=== PATIENT | female | born 1935 | race Caucasian/White ===

== ENCOUNTER 2019-09-11 12:48 | Outpatient (CLI) | payer MEDICARE, OTHER, SELFPAY ==
--- NOTE | 2019-09-11 12:59 | CT_ITS ---
WS: [id number] CT ANGIOGRAPHY CHEST AND ABDOMEN AORTA HISTORY: ASCENDING AORTIC ANEURYSM TECHNIQUE: Contiguous axial images through the aorta with and without contrast. Reformation images re viewed. All CT scans at [facility] use at least one of these dose optimization techniques: automated exposure control; mA and/or kV adjustment per patient size (includes targeted exams where dose is matched to clinical indication); or iterative reconstruction. CONTRAST: Visipaque 320; 95 mL IV. DLP: 1778.71 mGy-cm. COMPARISON: 05/28/2019 and 07/04/2016 Hyperinflated lungs with chronic emphysema. Mild bronchiectasis in the lower lobes bilaterally. Mild cardiomegaly with severe [place] coronary artery atherosclerosis and prior CABG. Thoracic and abdomen aorta: Mild aneurysmal dilatation of the ascending thoracic aorta at 4.8 cm whic h is similar to the prior study. Aortic dissection begins in the aortic arch just distal to the subcl remedios artery origin. Descending thoracic aortic dissection is stable. True and false lumens, apparent in the mid descending aorta with enhancement is both lumens. No progression of the mild dilatation w ith a dissection. Spiral shape of the dissection through the abdominal aorta with both lumens remaini ng patent. Dissection continues into the common iliac arteries bilaterally. No progression or aneurys mal dilatation. Early contrast enhancement of the visceral organs demonstrates no abnormality or interval change. Gal lbladder is slightly contracted. Severe atherosclerosis of the thoracic and abdominal aortas and the mesenteric arteries. Mild atrophy LEFT kidney. LEFT renal cyst. No adenopathy, free fluid or free air . Visualized GI tract is negative. T11, 10 percent compression fracture. Mild anterior wedging of L2 without retropulsion. CT/CT angio chest abdomen IMPRESSION: 1. Stable type III aortic dissection beginning in the descending thoracic aort a through the abdominal aorta into the common iliac arteries. 2. Mild stable aneurysmal dilatation ascending aorta at 4.8 cm. 3. Severe atherosclerosis thoracic aorta, coronary arteries and mesenteric art eries.
[2019-09-11 13:25] LABS: Blood Urea Nitrogen 17 mg/dL (8-23)
[2019-09-11] MEDS: iodixanol 320 mg/mL 100mL Btl IV (13:26)
== END 2019-09-11 12:49 | disposition home or self-care (01) ==
LOC: RADWPI 12:58
PROVIDERS: Family Provider Nurse Practitioner; PCP Nurse Practitioner; Referring Provider Nurse Practitioner; Visit Provider Internal Medicine Cardiovascular Disease
DX: I71.2 Thoracic aortic aneurysm, without rupture (principal)
CPT/HCPCS: 71275; 74175; 82565; 84520; Q9967

== ENCOUNTER → 2019-09-17 14:43 | Outpatient (BNVA) | payer MEDICARE, OTHER, SELFPAY | PROVIDERS: Family Provider Nurse Practitioner; PCP Nurse Practitioner; Visit Provider Nurse Practitioner | DX: E11.65 Type 2 diabetes mellitus with hyperglycemia (principal); E53.8 Deficiency of other specified B group vitamins; I10 Essential (primary) hypertension; E55.9 Vitamin D deficiency, unspecified; F41.1 Generalized anxiety disorder | CPT/HCPCS: 80053; 80061; 82306; 82607; 84443; 85025 ==

== ENCOUNTER → 2020-02-02 15:47 | Outpatient (BNVA) | payer MEDICARE, OTHER, SELFPAY | PROVIDERS: Family Provider Nurse Practitioner; PCP Nurse Practitioner; Visit Provider Nurse Practitioner | DX: E11.65 Type 2 diabetes mellitus with hyperglycemia (principal); E53.8 Deficiency of other specified B group vitamins; I10 Essential (primary) hypertension; F41.1 Generalized anxiety disorder; E55.9 Vitamin D deficiency, unspecified | CPT/HCPCS: 80053; 80061; 82306; 82607; 83036; 83540; 84443; 85025 ==

== ENCOUNTER → 2020-02-10 15:28 | Outpatient (BNVA) | payer MEDICARE, OTHER, SELFPAY | PROVIDERS: Family Provider Nurse Practitioner; Visit Provider Internal Medicine Cardiovascular Disease | DX: R06.02 Shortness of breath (principal); H53.19 Other subjective visual disturbances; R53.83 Other fatigue; I50.33 Acute on chronic diastolic (congestive) heart failure | CPT/HCPCS: 83880; 84443 ==

== ENCOUNTER 2020-03-03 09:15 | Outpatient (CLI) | payer MEDICARE, OTHER, SELFPAY ==
--- NOTE | 2020-03-03 09:35 | NMCV_ITS ---
NM ant perf SPECT r/s* [id number] Florence Mehta Age: 84 Gender: F : 1935 Exam Date: 03/03/2020 10:33 Ordering Phys: Andrei Alejandre MD ([email or web address]) Technologist: JAYRO Vargas Exam Location: [facility] Indications: VISUAL DISTORTION, SHORTNESS OF BREATH STRESS TEST Please see separate stress test report in [facility] for full findings IMAGE PROTOCOL Rest/Stress 1 Lexiscan Day Radiopharmaceutical Dose (mCi) Administration Site Administered by Rest: Tc-99m 10.9 IV JAYRO Lopez Sestamibi Stress:Tc-99m 32.4 IV JAYRO Vargas Sestamijethro Rest: 03-Mar-2020 60 Discovery 630 Stress: 03-Mar-2020 30 Discovery 630 0.4mg Lexiscan. Images obtained in supine and prone position. SPECT RESULTS Technical Quality: Excellent Raw Data Analysis: Normal Image Corrections: No attenuation or motion correction applied Summed Stress Score: 2 Summed Rest Score: 1 Summed Difference Score: 1 PERFUSION FINDINGS A small area of decreases uptake was noted in the apical anterior and apical septal region. Some reversibility was noted in the apical anterior region. FUNCTIONAL RESULTS (calculated via Gated SPECT) Stress Image LV EF (%): 78 Stress EDV (mL):79 TID: 0.96 Stress ESV (mL):17 FUNCTIONAL FINDINGS: Segmental wall motion analysis revealing no gross wall motion normalities IMPRESSIONS 1. Myocardial perfusion imaging revealing a small area of reversible defect in the apical anterior region, suggestive of ischemia in the distribution of the distal left anterior descending artery. 2. Normal LV ejection fraction 78%. 3. LV wall motion analysis revealing no gross wall motion normalities. 4. Normal LV volume. No similar previous studies available for comparison Dr Andrei Alejandre MD [facility] (Electronically Signed) Final Date: 03 March 2020 19:27 S
--- NOTE | 2020-03-03 09:35 | ECG_ITS ---
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 Interpretive Statements NAME OF STUDY: LEXISCAN SESTAMIBI STRESS TEST INDICATION: Chest Pain, PROCEDURE: At the baseline, the EKG revealed atrial fibrillation with controlled ventricular response rate. Some nonspecific T wave changes. Poor R wave progression. The baseline blood pressure was 148/89 mm Hg with a heart rate of 70 beats/min. Lexiscan was infused over a period of 20 seconds. A total of 0.4 milligrams of Lexiscan was infused. The stress phase was continued for a total of 5 minutes. Heart rate at the end of the stress phase was 72 with a blood pressure 159/77. The EKG at the peak infusion revealed no significant changes. Sestamibi was injected 20 seconds after the Lexiscan infusion. Blood pressure at the end of the recovery phase was 153/82 with a heart rate of 70 per minute. CONCLUSION: 1. No significant EKG changes with the LexiScan infusion 2. No LexiScan induced chest pain or cardiac arrhythmia 3. Normal blood pressure and heart rate response 4. Sestamibi/sestamibi perfusion scan pending; see separate report. Electronically Signed On 03-04-2020 15:54:01 CDT by Andrei Alejandre M.D. [email or web address]/[id number]
[2020-03-03 09:36] VITALS: BMI 25.8
[2020-03-03 11:23] VITALS: BP 155/79; PULSE 73
[2020-03-03] MEDS: aminophylline 25 mg/mL SDV 10 mL IVP (11:26)
[2020-03-03] MEDS: regadenoson 0.4 Mg/5 ml Syringe IVP (11:27)
== END 2020-03-03 09:16 | disposition home or self-care (01) ==
LOC: RAD 09:16
PROVIDERS: Family Provider Nurse Practitioner; Visit Provider Internal Medicine Cardiovascular Disease
DX: R06.02 Shortness of breath (principal); H53.19 Other subjective visual disturbances; R07.9 Chest pain, unspecified
CPT/HCPCS: 78452; 93017; A9500; J0280; J2785

== ENCOUNTER 2020-03-13 15:32 | Inpatient (IN) | payer MEDICARE, OTHER, SELFPAY ==
[2020-03-13] VITALS (52 sets, daily range): BP systolic 95–143; BP diastolic 56–83; PULSE 14–74; RESP 5–34; TEMP 36.5–37; O2SAT 88–97; BMI 25.8
--- NOTE | 2020-03-13 15:37 | ECG_ITS ---
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 Measurements Intervals [place] Rate: 47 P: MI: -1 QRS: -15 QRSD: 102 T: -3 QT: 538 QTc: 481 Interpretive Statements Junctional rhythm VOLTAGE CRITERIA FOR LVH [MEETS CRITERIA IN ONE OF: R(aVL), S(V1), R(V5), R(V5/V6)+S(V1)] INFERIOR MYOCARDIAL INFARCTION , PROBABLY OLD [40+ ms Q WAVE AND/OR ST/T ABNORMALITY IN II/aVF] Compared to ECG 10/24/2018 08:53:45 Left ventricular hypertrophy now present Myocardial infarct finding now present Sinus rhythm no longer present Ventricular premature complex(es) no longer present Electronically Signed On 03-13-2020 19:07:56 CDT by Benitez Vazquez M.D. [id number]
--- NOTE | 2020-03-13 15:37 | CTR_ITS ---
PROCEDURE INFORMATION: Exam: CT Abdomen And Pelvis With Contrast Exam date and time: 03/13/2020 3:40 PM Age: 84 years old Clinical indication: Abdominal pain; Acute; Additional info: Abd pain TECHNIQUE: Imaging protocol: Computed tomography of the abdomen and pelvis with intravenous contrast. Sagittal and coronal reformatted images were created and reviewed. Radiation optimization: All CT scans at this facility use at least one of these dose optimization techniques: automated exposure control; mA and/or kV adjustment per patient size (includes targeted exams where dose is matched to clinical indication); or iterative reconstruction. Contrast material: VISIPAQUE 320; Contrast volume: 95 ml; Contrast route: INTRAVENOUS (IV); COMPARISON: CT angio chest abdomen 09/11/2019 1:31 PM RADIATION DOSE METRICS: Total DLP (mGy-cm): 870.09 FINDINGS: Lungs: Stable interstitial fibrotic changes in the visualized lungs. Dependent atelectasis in the right lung. New noncalcified nodule in the right middle lobe with an average measurement of 7 mm (series 2, image 3). Heart: Stable moderate enlargement of the visualized portions of the heart. Liver: The liver is unremarkable. Gallbladder and bile ducts: The gallbladder is unremarkable. No biliary ductal dilatation. Pancreas: Stable mild atrophy of the pancreatic parenchyma. Spleen: Multiple calcified granulomas in the spleen. Findings are stable. Adrenals: The right and left adrenal glands are unremarkable. Kidneys and ureters: Simple cyst in the right kidney. The left kidney is unremarkable. The right and left ureters are unremarkable. Stomach and bowel: Moderate gastric distention. Increased fecal content in the colon. No acute abnormality in the small bowel. Appendix: Appendix not definitely visualized. No inflammatory changes in the pericecal region however. Intraperitoneal space: No free intraperitoneal air. No ascites. No loculated fluid collections to suggest an abscess. Vasculature: Atherosclerotic calcification in the coronary arteries. Stable extensive atherosclerotic calcifications in the visualized arteries. Stable aneurysm of the visualized descending thoracic aorta measuring 4.1 cm (series 2, image 10). 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 Lymph nodes: No lymphadenopathy. Bladder: Unremarkable as visualized. Reproductive: Patient has had a previous hysterectomy. Calcification in the right ovary, possibly due to sequela from a prior involuting cyst. The left ovary is unremarkable. Bones/joints: Poststernotomy changes in the chest. Degenerative changes in the spine, sacroiliac joints, and hips. Mild spinal canal stenosis at L1-L2 through L5-S1. Multilevel foraminal stenosis of varying severity in the lumbar spine. Stable old, mild compression deformities of the superior endplates of T11, L2, and L3, and the inferior endplate of L4. Soft tissues: No acute abnormality in the extra-abdominal soft tissues. CT/CT abdomen pelvis w con* [id number] IMPRESSION: 1. Moderate gastric distention. 2. New noncalcified nodule in the right middle lobe with an average measurement of 7 mm (series 2, image 3). For patients at low risk (minimal or absent history of smoking and of other known risk factors), recommend CT Chest at 3-6 months, then consider CT Chest at 18-24 months. For patients at high risk (history of smoking or of other known risk factors), recommend CT Chest at 3-6 months, then CT Chest at 18-24 months. HaileMahon Loera, Fleischner Society, 2017. 3. 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 4. 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 5. Incidental/nonacute findings are listed in the report. COMMENTS: Consistent with the [employer]'s Incidental Findings Committee white paper (J Am Alesha Radiol 2018): Any incidental renal lesion less than 1.0 cm or classified as too small to characterize, or any incidental cystic renal lesion characterized as simple-appearing, is likely benign. No follow-up imaging is recommended for these lesions per consensus recommendations based on imaging criteria. Radiation Dose CTDIVOL = (mGy): DLP = 870.09 (mGy-cm)
--- NOTE | 2020-03-13 15:37 | XRR_ITS ---
PROCEDURE INFORMATION: Exam: XR Chest, 1 View Exam date and time: 03/13/2020 3:49 PM Age: 84 years old Clinical indication: Chest pain; Type not specified; Prior surgery; Surgery date: 6+ months; Surgery type: Bypass; Additional info: Bradycardia TECHNIQUE: Imaging protocol: XR of the chest Views: 1 view. COMPARISON: CR Chest 2 views* [id number] 10/20/2018 6:56 AM FINDINGS: Lungs: Stable scarring in both lungs. No focal consolidation. No pulmonary edema. Stable linear scarring in the left lower lobe. Pleural space: No pleural effusion. No pneumothorax. Heart/Mediastinum: Stable mild enlargement of the cardiac silhouette. Mediastinal contours are unremarkable. Vasculature: Stable vascular calcifications in the aorta. Stable tortuosity of the aorta. Bones/joints: Unremarkable for age. XR/XR chest 1V portable [id number] IMPRESSION: 1. No acute cardiopulmonary process. 2. Incidental/nonacute findings are listed in the report.
--- NOTE | 2020-03-13 15:48 | W.ED.ABDPA2 ---
HPI - Abdominal Pain General: Chief Complaint: Abdominal Pain Stated Complaint: BRADYCARDIA Time Seen by Provider: 03/13/20 15:34 Source: patient and EMS Mode of arrival: EMS Limitations: no limitations History of Present Illness: HPI narrative: 84-year-old female states she started having abdominal distention and abdominal pain that started suddenly 2 hours ago. Patient states the pain is severe in nature and rates it an 8 out of 10. Denies any worsening or improving factors. Patient was bradycardic per EMS in the 30s but had a normal blood pressure. They gave her 0.5 atropine her blood pressure still is normal and heart rate is in the 50s. Patient denies any chest pain or shortness of breath. MD elicited complaint: abdominal pain Pertinent past history: none Onset (ago): hour(s) Pain Consistency: constant Location: Diffuse Severity: moderate Quality: stabbing Radiation: none Migration to: no migration Exacerbating factors: nothing Relieving factors: nothing Associated Symptoms: Denies chills, dysuria and fever(s) Review of Systems Const: Denies: fever(s), chills, body aches or change in appetite Eyes: Denies: blurry vision or eye discomfort ENMT: Denies: throat pain or dental pain Card: Reports: irregular heart rhythm Resp: Denies: dyspnea GI: Reports: abdominal pain : Denies: dysuria Musc: Denies: neck pain or back pain Skin/Breast: Denies: rash Neuro: Denies: headache(s) Psych: Denies: depression Addy/Lymph: Denies: easy bruising All/Imm: Denies: urticaria PFSH ED PFSH: Medical History (Updated 03/13/20 @ 18:29 by Casimiro Velazquez MD) Atherosclerotic heart disease of craig coronary artery without angina pectoris Recent nuclear stress test, 03/03/2020 demonstrated reversible ischemia, small area, LAD distribution Benign hypertension Controlled type 2 diabetes mellitus with hyperglycemia, without long-term current use of insulin COPD with emphysema CVA (cerebral vascular accident) Fatigue Generalized anxiety disorder Memory deficit Mixed hyperlipidemia Paroxysmal atrial fibrillation Thoracic aortic aneurysm Visual distortion Vitamin B12 deficiency Vitamin D deficiency Surgical History (Updated 03/13/20 @ 18:21 by Casimiro Velazquez MD) History of appendectomy History of colonoscopy 2014 History of coronary artery bypass graft History of hysterectomy Family History Sister Cancer Social History Smoking and tobacco status: never smoked Second hand smoke exposure: No Smoking risk assessment/counseling performed?: No Alcohol intake: never Desire information about alcohol rehabilitation?: No Counseling given: No Desire information about substance/drug rehabilitation?: No Counseling given: No Caregiver/support person: No Lives independently: Yes Household members: spouse Marital status: History of recent travel: No Current gender identity: Female Physical Exam Const: COMMON NORMALS: no acute distress, patient oriented x3 and healthy appearing HENMT: COMMON NORMALS: normocephalic and atraumatic HEAD & SCALP: normocephalic and atraumatic Eye: COMMON NORMALS: Equal, round and reactive pupils present and EOMs intact bilaterally PUPIL: Yes Equal, round and reactive pupils present Neck/C-Spine: COMMON NORMALS: full ROM and supple Chest: COMMONS NORMALS: normal inspection of the chest and normal palpation of entire chest wall Resp: COMMON NORMALS: normal respiratory effort, No retractions, No use of accessory muscles and clear to auscultation bilaterally AUSCULTATION: clear to auscultation bilaterally Cardio: COMMON NORMALS: regular rhythm and No murmurs present (Cardio) RATE: bradycardic RHYTHM: regular rhythm GI: COMMON NORMALS: no masses OTHER: Distended abdomen that is tender to palpation Extremity: COMMON NORMALS: normal to inspection and full ROM Neuro: COMMON NORMALS: patient oriented x3, moves all extremities and no focal motor deficits Psych: COMMON NORMALS: mental status grossly normal, Normal thought process present and cooperative THOUGHT PROCESS: Normal thought process present Skin: COMMON NORMALS: no rashes or lesions noted and no wounds GENERAL SKIN EXAM: no rashes or lesions noted Course Vital Signs: Vital signs: Vital Signs Temperature 97.7 F 03/13/20 15:33 Pulse Rate 61 03/13/20 18:44 Respiratory Rate 18 03/13/20 18:44 Blood Pressure 115/63 03/13/20 18:44 Pulse Oximetry 96 03/13/20 18:44 MDM - Abdominal Pain MDM Narrative: Medical decision making narrative: Patient presents here with bradycardia likely from electrolyte abnormality. Patient has hyperkalemia is they have treated with insulin glucose and calcium. She also has abdominal pain CT shows an old stable aneurysm. Her pain is much improved here after pain meds and exam at this time is benign. I spoke to Dr. Velazquez who is seen the patient in the ER and will admit. Lab Data: Labs: Lab Results 03/13/20 03/13/20 03/13/20 Range/Units 15:45 15:45 15:45 WBC 7.7 (4.0-10.0) 10^3/ uL RBC 3.86 L (4.1-5.3) 10^6/u L Hgb 11.6 (11.5-15.3) g/dL Hct 36.6 L (37.0-47.0) % MCV 94.8 (81-99) fL MCH 30.1 (28.0-34.0) pg MCHC 31.7 (30.0-36.0) g/dL RDW 14.6 (12.1-15.1) % Plt Count 136 (130-400) 10^3/c mm MPV 11.7 H (7.4-10.4) fL Neut % (Auto) 81.5 % Lymph % (Auto) 10.1 % [place] % (Auto) 5.8 % Eos % (Auto) 1.0 % Baso % (Auto) 0.3 % Neut # (Auto) 6.27 (1.8-7.7) 10^3/u L Lymph # (Auto) 0.8 (0.8-4.8) 10^3/u L [place] # (Auto) 0.5 (0.2-0.9) 10^3/u L Eos # (Auto) 0.1 (0.0-0.8) 10^3/u L Baso # (Auto) 0.0 (0.0-0.1) 10^3/u L Nucleated RBC % (a uto) 0 % Nucleated RBCs # 0.0 /100WBC PT 14.10 H (10.5-13.3) SECO NDS INR 1.06 (0.8-1.2) Sodium 127 L (136-145) mmol/L Potassium 5.6 H (3.5-5.1) mmol/L Chloride 92 L (98-107) mmol/L Carbon Dioxide 24 (22-29) mmol/L Anion Gap 16.6 (5-19) BUN 23 (8-23) mg/dL Creatinine 1.7 H (0.5-0.9) mg/dL Glucose 281 H (65-115) mg/dL Calculated Osmolal ity 271 L (285-295) mOsm/k g Lactate (0.5-2.2) mmol/L Calcium 10.1 (8.5-10.5) mg/dL Magnesium (1.7-2.3) mg/dL Total Bilirubin 0.8 (0.15-1.2) mg/dL AST 34 H (0-32) U/L ALT 25 (0-33) U/L Alkaline Phosphata se 51 (35-105) IU/L Troponin T Baselin e (0-10) ng/L Troponin T 120 [place] (0-10) ng/L Delta Troponin T (0-10) ABS# Total Protein 7.0 (6.6-8.7) g/dL Albumin 4.2 (3.5-5.2) g/dL Globulin 2.8 (1.3-4.6) g/dL TSH (0.27-4.20) uIU/ mL Urine Color (Yellow) Urine Appearance (CLEAR) Urine pH (5-7) Ur Specific Gravit y (1.005-1.030) Urine Protein (Negative) Urine Glucose (UA) (Normal) Urine Ketones (Negative) Urine Blood (Negative) Urine Nitrate (Negative) Urine Bilirubin (NEGATIVE) Urine Urobilinogen (Negative) mg/dL Ur Leukocyte Allison ase (Negative) Blood Type Rho(D) Type Antibody Screen 03/13/20 03/13/20 03/13/20 Range/Units 15:45 15:45 15:45 WBC (4.0-10.0) 10^3/ uL RBC (4.1-5.3) 10^6/u L Hgb (11.5-15.3) g/dL Hct (37.0-47.0) % MCV (81-99) fL MCH (28.0-34.0) pg MCHC (30.0-36.0) g/dL RDW (12.1-15.1) % Plt Count (130-400) 10^3/c mm MPV (7.4-10.4) fL Neut % (Auto) % Lymph % (Auto) % [place] % (Auto) % Eos % (Auto) % Baso % (Auto) % Neut # (Auto) (1.8-7.7) 10^3/u L Lymph # (Auto) (0.8-4.8) 10^3/u L [place] # (Auto) (0.2-0.9) 10^3/u L Eos # (Auto) (0.0-0.8) 10^3/u L Baso # (Auto) (0.0-0.1) 10^3/u L Nucleated RBC % (a uto) % Nucleated RBCs # /100WBC PT (10.5-13.3) SECO NDS INR (0.8-1.2) Sodium (136-145) mmol/L Potassium (3.5-5.1) mmol/L Chloride (98-107) mmol/L Carbon Dioxide (22-29) mmol/L Anion Gap (5-19) BUN (8-23) mg/dL Creatinine (0.5-0.9) mg/dL Glucose (65-115) mg/dL Calculated Osmolal ity (285-295) mOsm/k g Lactate 2.4 H (0.5-2.2) mmol/L Calcium (8.5-10.5) mg/dL Magnesium 1.8 (1.7-2.3) mg/dL Total Bilirubin (0.15-1.2) mg/dL AST (0-32) U/L ALT (0-33) U/L Alkaline Phosphata se (35-105) IU/L Troponin T Baselin e 13 H (0-10) ng/L Troponin T 120 [place] (0-10) ng/L Delta Troponin T (0-10) ABS# Total Protein (6.6-8.7) g/dL Albumin (3.5-5.2) g/dL Globulin (1.3-4.6) g/dL TSH (0.27-4.20) uIU/ mL Urine Color (Yellow) Urine Appearance (CLEAR) Urine pH (5-7) Ur Specific Gravit y (1.005-1.030) Urine Protein (Negative) Urine Glucose (UA) (Normal) Urine Ketones (Negative) Urine Blood (Negative) Urine Nitrate (Negative) Urine Bilirubin (NEGATIVE) Urine Urobilinogen (Negative) mg/dL Ur Leukocyte Allison ase (Negative) Blood Type Rho(D) Type Antibody Screen 03/13/20 03/13/20 03/13/20 Range/Units 15:45 17:07 17:48 WBC (4.0-10.0) 10^3/ uL RBC (4.1-5.3) 10^6/u L Hgb (11.5-15.3) g/dL Hct (37.0-47.0) % MCV (81-99) fL MCH (28.0-34.0) pg MCHC (30.0-36.0) g/dL RDW (12.1-15.1) % Plt Count (130-400) 10^3/c mm MPV (7.4-10.4) fL Neut % (Auto) % Lymph % (Auto) % [place] % (Auto) % Eos % (Auto) % Baso % (Auto) % Neut # (Auto) (1.8-7.7) 10^3/u L Lymph # (Auto) (0.8-4.8) 10^3/u L [place] # (Auto) (0.2-0.9) 10^3/u L Eos # (Auto) (0.0-0.8) 10^3/u L Baso # (Auto) (0.0-0.1) 10^3/u L Nucleated RBC % (a uto) % Nucleated RBCs # /100WBC PT (10.5-13.3) SECO NDS INR (0.8-1.2) Sodium (136-145) mmol/L Potassium (3.5-5.1) mmol/L Chloride (98-107) mmol/L Carbon Dioxide (22-29) mmol/L Anion Gap (5-19) BUN (8-23) mg/dL Creatinine (0.5-0.9) mg/dL Glucose (65-115) mg/dL Calculated Osmolal ity (285-295) mOsm/k g Lactate (0.5-2.2) mmol/L Calcium (8.5-10.5) mg/dL Magnesium (1.7-2.3) mg/dL Total Bilirubin (0.15-1.2) mg/dL AST (0-32) U/L ALT (0-33) U/L Alkaline Phosphata se (35-105) IU/L Troponin T Baselin e (0-10) ng/L Troponin T 120 [place] 12.57 H (0-10) ng/L Delta Troponin T -0.43 L (0-10) ABS# Total Protein (6.6-8.7) g/dL Albumin (3.5-5.2) g/dL Globulin (1.3-4.6) g/dL TSH 7.36 H (0.27-4.20) uIU/ mL Urine Color (Yellow) Urine Appearance (CLEAR) Urine pH (5-7) Ur Specific Gravit y (1.005-1.030) Urine Protein (Negative) Urine Glucose (UA) (Normal) Urine Ketones (Negative) Urine Blood (Negative) Urine Nitrate (Negative) Urine Bilirubin (NEGATIVE) Urine Urobilinogen (Negative) mg/dL Ur Leukocyte Allison ase (Negative) Blood Type O Positive Rho(D) Type Positive Antibody Screen Negative 03/13/20 Range/Units 17:58 WBC (4.0-10.0) 10^3/ uL RBC (4.1-5.3) 10^6/u L Hgb (11.5-15.3) g/dL Hct (37.0-47.0) % MCV (81-99) fL MCH (28.0-34.0) pg MCHC (30.0-36.0) g/dL RDW (12.1-15.1) % Plt Count (130-400) 10^3/c mm MPV (7.4-10.4) fL Neut % (Auto) % Lymph % (Auto) % [place] % (Auto) % Eos % (Auto) % Baso % (Auto) % Neut # (Auto) (1.8-7.7) 10^3/u L Lymph # (Auto) (0.8-4.8) 10^3/u L [place] # (Auto) (0.2-0.9) 10^3/u L Eos # (Auto) (0.0-0.8) 10^3/u L Baso # (Auto) (0.0-0.1) 10^3/u L Nucleated RBC % (a uto) % Nucleated RBCs # /100WBC PT (10.5-13.3) SECO NDS INR (0.8-1.2) Sodium (136-145) mmol/L Potassium (3.5-5.1) mmol/L Chloride (98-107) mmol/L Carbon Dioxide (22-29) mmol/L Anion Gap (5-19) BUN (8-23) mg/dL Creatinine (0.5-0.9) mg/dL Glucose (65-115) mg/dL Calculated Osmolal ity (285-295) mOsm/k g Lactate (0.5-2.2) mmol/L Calcium (8.5-10.5) mg/dL Magnesium (1.7-2.3) mg/dL Total Bilirubin (0.15-1.2) mg/dL AST (0-32) U/L ALT (0-33) U/L Alkaline Phosphata se (35-105) IU/L Troponin T Baselin e (0-10) ng/L Troponin T 120 [place] (0-10) ng/L Delta Troponin T (0-10) ABS# Total Protein (6.6-8.7) g/dL Albumin (3.5-5.2) g/dL Globulin (1.3-4.6) g/dL TSH (0.27-4.20) uIU/ mL Urine Color Yellow (Yellow) Urine Appearance Clear (CLEAR) Urine pH 7 (5-7) Ur Specific Gravit y 1.000 L (1.005-1.030) Urine Protein Neg (Negative) Urine Glucose (UA) Norm (Normal) Urine Ketones Negative (Negative) Urine Blood Neg (Negative) Urine Nitrate Negative (Negative) Urine Bilirubin Neg (NEGATIVE) Urine Urobilinogen Norm (Negative) mg/dL Ur Leukocyte Allison ase Negative (Negative) Blood Type Rho(D) Type Antibody Screen Imaging Data ^: CXR: Radiologist's impression: [address] [address] XRay Report Signed Patient: Florence Mehta Unit #: [id number] : 1935 Age/Sex: 84 / F ADM Date: 03/13/20 Loc: ER Room/Bed: Attending Dr: Ordering Provider/Ordering MD: Salena Wilson MD Date of Service: 03/13/20 Procedure(s): XR chest 1V portable [id number] Accession Number(s): [id number] Report Number: [id number] PROCEDURE INFORMATION: Exam: XR Chest, 1 View Exam date and time: 03/13/2020 3:49 PM Age: 84 years old Clinical indication: Chest pain; Type not specified; Prior surgery; Surgery date: 6+ months; Surgery type: Bypass; Additional info: Bradycardia TECHNIQUE: Imaging protocol: XR of the chest Views: 1 view. COMPARISON: CR Chest 2 views* [id number] 10/20/2018 6:56 AM FINDINGS: Lungs: Stable scarring in both lungs. No focal consolidation. No pulmonary edema. Stable linear scarring in the left lower lobe. Pleural space: No pleural effusion. No pneumothorax. Heart/Mediastinum: Stable mild enlargement of the cardiac silhouette. Mediastinal contours are unremarkable. Vasculature: Stable vascular calcifications in the aorta. Stable tortuosity of the aorta. Bones/joints: Unremarkable for age. XR/XR chest 1V portable [id number] IMPRESSION: 1. No acute cardiopulmonary process. 2. Incidental/nonacute findings are listed in the report. CT Abd/Pel: Attestation: I personally reviewed and interpreted this imaging study as follows: Radiologist's impression: [address] [address] [address] Scan Report Signed Patient: Florence Mehta Unit #: [id number] : 1935 Age/Sex: 84 / F ADM Date: 03/13/20 Loc: ER Room/Bed: Attending Dr: Ordering Provider/Ordering MD: Salena Wilson MD Date of Service: 03/13/20 Procedure(s): CT abdomen pelvis w con* [id number] Accession Number(s): [id number] Report Number: [id number] PROCEDURE INFORMATION: Exam: CT Abdomen And Pelvis With Contrast Exam date and time: 03/13/2020 3:40 PM Age: 84 years old Clinical indication: Abdominal pain; Acute; Additional info: Abd pain TECHNIQUE: Imaging protocol: Computed tomography of the abdomen and pelvis with intravenous contrast. Sagittal and coronal reformatted images were created and reviewed. Radiation optimization: All CT scans at this facility use at least one of these dose optimization techniques: automated exposure control; mA and/or kV adjustment per patient size (includes targeted exams where dose is matched to clinical indication); or iterative reconstruction. Contrast material: VISIPAQUE 320; Contrast volume: 95 ml; Contrast route: INTRAVENOUS (IV); COMPARISON: CT angio chest abdomen 09/11/2019 1:31 PM RADIATION DOSE METRICS: Total DLP (mGy-cm): 870.09 FINDINGS: Lungs: Stable interstitial fibrotic changes in the visualized lungs. Dependent atelectasis in the right lung. New noncalcified nodule in the right middle lobe with an average measurement of 7 mm (series 2, image 3). Heart: Stable moderate enlargement of the visualized portions of the heart. Liver: The liver is unremarkable. Gallbladder and bile ducts: The gallbladder is unremarkable. No biliary ductal dilatation. Pancreas: Stable mild atrophy of the pancreatic parenchyma. Spleen: Multiple calcified granulomas in the spleen. Findings are stable. Adrenals: The right and left adrenal glands are unremarkable. Kidneys and ureters: Simple cyst in the right kidney. The left kidney is unremarkable. The right and left ureters are unremarkable. Stomach and bowel: Moderate gastric distention. Increased fecal content in the colon. No acute abnormality in the small bowel. Appendix: Appendix not definitely visualized. No inflammatory changes in the pericecal region however. Intraperitoneal space: No free intraperitoneal air. No ascites. No loculated fluid collections to suggest an abscess. Vasculature: Atherosclerotic calcification in the coronary arteries. Stable extensive atherosclerotic calcifications in the visualized arteries. Stable aneurysm of the visualized descending thoracic aorta measuring 4.1 cm (series 2, image 10). 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 Lymph nodes: No lymphadenopathy. Bladder: Unremarkable as visualized. Reproductive: Patient has had a previous hysterectomy. Calcification in the right ovary, possibly due to sequela from a prior involuting cyst. The left ovary is unremarkable. Bones/joints: Poststernotomy changes in the chest. Degenerative changes in the spine, sacroiliac joints, and hips. Mild spinal canal stenosis at L1-L2 through L5-S1. Multilevel foraminal stenosis of varying severity in the lumbar spine. Stable old, mild compression deformities of the superior endplates of T11, L2, and L3, and the inferior endplate of L4. Soft tissues: No acute abnormality in the extra-abdominal soft tissues. CT/CT abdomen pelvis w con* [id number] IMPRESSION: 1. Moderate gastric distention. 2. New noncalcified nodule in the right middle lobe with an average measurement of 7 mm (series 2, image 3). For patients at low risk (minimal or absent history of smoking and of other known risk factors), recommend CT Chest at 3-6 months, then consider CT Chest at 18-24 months. For patients at high risk (history of smoking or of other known risk factors), recommend CT Chest at 3-6 months, then CT Chest at 18-24 months. Kathleen Loera, Fleischner Society, 2017. 3. 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 4. 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 5. Incidental/nonacute findings are listed in the report. EKG Data ^: EKG 1: Attestation: I personally reviewed and interpreted this EKG as follows: EKG interpretation date: 03/13/20 EKG interpretation time: 15:49 Interpretation: bradycardia hr [address] or t wave abnormalities qrs 102 qtc 503 Critical Care Time Critical Care Time: Critical Care Time: Yes Total Critical Care Time: 35 Attestation: This case had a high probability of a clinically significant, sudden, or life threatening deterioration of this patient's condition which required my full and direct attention, intervention and personal management. Discharge Plan Discharge Patient Disposition: Admitted As Inpatient Clinical Impression: Bradycardia, Abdominal pain, Acute hyperkalemia Condition: Stable Referrals: Rui Becker FNP-C [Family Provider] - Coding Level of Care Code ED Automobile Damage Appraiser for Chg Fwd Exam Comprehensive
[2020-03-13] MEDS: morphine 4 mg/mL SDV 1 mL IVP (15:55)
[2020-03-13] MEDS: ondansetron 2 mg/ML SDV 2 mL 4 MG IVP ×2 (15:55→18:33)
--- NOTE | 2020-03-13 16:03 | PC.NURSE ---
States she has had needed to void today. Peed this morning and not since then. Abdomen distended and hyper bowel sounds .
[2020-03-13 16:04] LABS: Basophils % 0.3 %; Eosinophils # 0.1 10^3/uL (0.0-0.8); Hematocrit 36.6 % (37.0-47.0); Hemoglobin 11.6 g/dL (11.5-15.3); Lymphocytes # 0.8 10^3/uL (0.8-4.8); Lymphocytes % 10.1 %; Mean Corpuscular HGB Conc 31.7 g/dL (30.0-36.0); Mean Corpuscular Hemoglobin 30.1 pg (28.0-34.0); Mean Corpuscular Volume 94.8 fL (81-99); Mean Platelet Volume 11.7 fL (7.4-10.4); Monocytes # 0.5 10^3/uL (0.2-0.9); Monocytes % 5.8 %; Neutrophils # 6.27 10^3/uL (1.8-7.7); Neutrophils % 81.5 %; Nucleated Red Blood Cells % 0 %; Platelet Count 136 10^3/cmm (130-400); Red Blood Count 3.86 10^6/uL (4.1-5.3); Red Cell Distribution Width 14.6 % (12.1-15.1); White Blood Count 7.7 10^3/uL (4.0-10.0)
[2020-03-13] MEDS: sodium chloride 0.9% 1,000 ML 999 ML IV (16:13)
[2020-03-13 16:21] LABS: Lactate (Lactic Acid level) 2.4 mmol/L (0.5-2.2)
[2020-03-13 16:25] LABS: Alanine Aminotransferase 25 U/L (0-33); Albumin Level 4.2 g/dL (3.5-5.2); Alkaline Phosphatase 51 IU/L (35-105); Anion Gap 16.6 (5-19); Aspartate Amino Transferase 34 U/L (0-32); Blood Urea Nitrogen 23 mg/dL (8-23); Calcium 10.1 mg/dL (8.5-10.5); Carbon Dioxide 24 mmol/L (22-29); Chloride 92 mmol/L (98-107); Globulin 2.8 g/dL (1.3-4.6); Glucose 281 mg/dL (65-115); Osmolality Calculated 271 mOsm/kg (285-295); Potassium 5.6 mmol/L (3.5-5.1); Sodium 127 mmol/L (136-145); Total Bilirubin 0.8 mg/dL (0.15-1.2)
[2020-03-13 16:35] LABS: INR 1.06 (0.8-1.2)
[2020-03-13 16:54] LABS: Troponin(5th) Baseline 13 ng/L (0-10)
[2020-03-13] MEDS: iodixanol 320 mg/mL 100mL Btl IV (17:25)
[2020-03-13 17:36] LABS: Magnesium 1.8 mg/dL (1.7-2.3)
--- NOTE | 2020-03-13 17:37 | ECG_ITS ---
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 Measurements Intervals [place] Rate: 43 P: [place]: -1 QRS: 0 QRSD: 90 T: 2 QT: 556 QTc: 473 Interpretive Statements Junctional rhythm POSSIBLE ANTERIOR MYOCARDIAL INFARCTION , OF INDETERMINATE AGE [30 ms Q WAVE IN V3/V4, OR R < 0.2 mV IN V4] PROLONGED QT INTERVAL CRITICAL TEST RESULT Compared to ECG 03/13/2020 15:49:45 Prolonged QT interval now present Left ventricular hypertrophy no longer present Myocardial infarct finding still present Electronically Signed On 03-13-2020 19:10:56 CDT by Benitez Vazquez M.D. [email or web address]
[2020-03-13 18:11] LABS: Troponin 5 2HR 12.57 ng/L (0-10)
--- NOTE | 2020-03-13 18:11 | P.HP_ITS ---
Providers/Chief Complaint Chief Complaint: BRADYCARDIA History of Present Illness Florence Mehta is a 84 year old female who presents to the emergency department with abdominal pain. She has had some dry heaves. 1 week ago or so she started on a new medicine ranolazine. She is wondering if that is what is causing difficulty. She reports some difficulty urinating and has not urinated since early this morning. She reports constipation at least the last 2 days. She reports her abdomen feels significantly distended. She did have some abdominal discomfort when she came in but this is somewhat better. She denies any fever, cough, exposure to Covid 19. She reports she takes all her medicines as prescribed. She reports she had some chest pain with her epigastric pain earlier this morning. EMS was concerned regarding her low heart rate in the field and gave her 0.5 mg of atropine. She is continued to remain bradycardic with a heart rate in the 40s in the ER. When I received the phone call regarding the patient I noted on her CT scan significant bladder distention. I asked that a Marmolejo be placed and this has been done, and heart rate has come up to the 60s with catheter placement. I have also asked that calcium gluconate be given for her elevated potassium. Secondary to lower blood pressure, abdominal pain, hyponatremia and hyperkalemia we will also give 1 dose of hydrocortisone. Consideration for insulin and glucose, Kayexalate will also be made. Review of Systems General: Reports: 10 or more systems reviewed and unremarkable except in HPI and below Const: Denies: fever(s) or chills Eyes: Denies: change in vision ENMT: Denies: throat pain Card: Reports: chest pain Resp: Denies: dyspnea GI: Reports: abdominal pain, nausea and constipation : Reports: oliguria; Denies: flank pain Musc: Denies: neck pain Skin/Breast: Denies: rash Neuro: Denies: headache(s) Psych: Denies: anxiety or depression Endo: Denies: polyuria Addy/Lymph: Denies: easy bruising All/Imm: Denies: urticaria Medications/Allergies Home Medications Medication Instructions Recorded Confirmed Last Taken Type albuterol sulfate 90 mcg/actuation 2 puff INHALATION QID PRN #18 gm 09/17/19 03/13/20 Unknown Rx aerosol inhaler blood sugar diagnostic #10 each 09/17/19 03/13/20 Unknown History clopidogrel 75 mg tablet 75 ea PO DAILY 09/17/19 03/13/20 03/13/20 History fenofibrate nanocrystallized 48 mg 48 ea PO DAILY 09/17/19 03/13/20 03/13/20 History tablet lancets 30 gauge #25 each 09/17/19 03/13/20 Unknown History magnesium oxide 400 mg (241.3 mg 400 mg PO DAILY 09/17/19 03/13/20 03/12/20 History magnesium) tablet amlodipine 10 mg tablet 10 mg PO DAILY #90 tab 10/29/19 03/13/20 03/13/20 Rx isosorbide mononitrate 120 mg 120 mg PO DAILY #30 tab 10/29/19 03/13/20 03/13/20 Rx tablet,extended release 24 hr furosemide 40 mg tablet 40 mg PO DAILY #30 tab 11/02/19 03/13/20 03/13/20 Rx metoprolol tartrate 50 mg tablet 50 mg PO BID PRN #60 tab 11/02/19 03/13/20 Unknown Rx potassium chloride 10 mEq 10 meq PO DAILY #30 tab 11/02/19 03/13/20 03/12/20 Rx tablet,extended release nitroglycerin 0.4 mg sublingual 0.4 mg SUBLINGUAL Q5M PRN #1 pkg 12/16/19 03/13/20 Unknown Rx tablet cyanocobalamin (vitamin B-12) 1,000 mcg IM .on and 17 0302/02/20 03/13/20 03/13/20 Rx 1,000 mcg/mL injection solution Days #2 ml ferrous gluconate 324 mg (38 mg 324 mg PO .every other day #30 tab 02/02/20 03/13/20 03/11/20 Rx iron) tablet glimepiride 4 mg tablet 4 mg PO QAM #30 tab 02/02/20 03/13/20 03/13/20 Rx irbesartan 300 mg tablet 300 mg PO QDAY #30 tab 02/02/20 03/13/20 03/13/20 Rx metformin 500 mg tablet,extended 1,000 mg PO QDAY #60 tab 02/02/20 03/13/20 03/13/20 Rx release 24 hr sertraline 50 mg tablet 50 mg PO QDAY #30 tab 02/02/20 03/13/20 03/12/20 Rx sitagliptin 100 mg tablet 100 mg PO QDAY #30 tab 02/02/20 03/13/20 03/13/20 Rx ascorbate calcium (vitamin C) 500 500 mg PO DAILY 02/10/20 03/13/20 03/13/20 History mg tablet aspirin 81 mg tablet,delayed 81 mg PO DAILY 02/10/20 03/13/20 03/12/20 History release cascara sagrada 450 mg capsule 450 mg PO BID cap 02/10/20 03/13/20 03/12/20 History multivitamin 1 tab PO DAILY 02/10/20 03/13/20 03/12/20 History ranolazine 500 mg tablet,extended 500 mg PO BID #60 tab 03/08/20 03/13/20 03/13/20 Rx release,12 hr sotalol 160 mg PO BID 03/13/20 03/13/20 03/13/20 History Allergies Allergy/AdvReac Type Severity Reaction Status Date / Time atorvastatin [From Lipitor] Allergy Unknown Unknown Verified 03/13/20 16:27 butorphanol Allergy Unknown Goes crazy Verified 03/13/20 16:27 ezetimibe [Zetia] Allergy Unknown Unknown Verified 03/13/20 16:27 piroxicam [From Feldene] Allergy Unknown Unknown Verified 03/13/20 16:27 simvastatin [From Zocor] Allergy Unknown Unknown Verified 03/13/20 16:27 Sulfa (Sulfonamide Allergy Unknown Unknown Verified 03/13/20 16:27 Antibiotics) PFSH Acute PFSH: Medical History (Updated 03/13/20 @ 18:29 by Casimiro Velazquez MD) Atherosclerotic heart disease of [place] coronary artery without angina pectoris Recent nuclear stress test, 03/03/2020 demonstrated reversible ischemia, small area, LAD distribution Benign hypertension Controlled type 2 diabetes mellitus with hyperglycemia, without long-term current use of insulin COPD with emphysema CVA (cerebral vascular accident) Fatigue Generalized anxiety disorder Memory deficit Mixed hyperlipidemia Paroxysmal atrial fibrillation Thoracic aortic aneurysm Visual distortion Vitamin B12 deficiency Vitamin D deficiency Surgical History (Updated 03/13/20 @ 18:21 by Casimiro Velazquez MD) History of appendectomy History of colonoscopy 2014 History of coronary artery bypass graft History of hysterectomy Family History Sister Cancer Social History Smoking and tobacco status: never smoked Second hand smoke exposure: No Smoking risk assessment/counseling performed?: No Alcohol intake: never Desire information about alcohol rehabilitation?: No Counseling given: No Desire information about substance/drug rehabilitation?: No Counseling given: No Caregiver/support person: No Lives independently: Yes Household members: spouse Marital status: History of recent travel: No Current gender identity: Female Vitals/I&O/Wt Last Vital Signs Temp 97.7 F 03/13/20 15:33 Pulse 47 L 03/13/20 15:57 Resp 18 03/13/20 15:57 BP 95/62 03/13/20 15:57 Pulse Ox 95 03/13/20 15:57 Weight last 48 hrs Weight 74.843 kg Physical Exam Narrative: EXAM NARRATIVE: General exam no obvious distress currently although she reports her abdomen is slightly tender HEENT: Pupils equally round. Oropharynx clear. Neck is supple no lymphadenopathy or thyromegaly Cardiovascular bradycardic, 2/6 systolic murmur Lungs clear Abdomen distended initially, less so after placement of Marmolejo. Soft with positive bowel sounds. No specific tenderness with palpation. was deferred Extremities no cyanosis clubbing or edema, cap refill brisk Skin no rash Neuro no focal deficits Data : 03/13/20 15:45 03/13/20 15:45 Other data: EKG demonstrated a heart rate of 47, left axis deviation. No PEs were seen. QRS duration 102 suggesting a supraventricular bradycardia. CT scan demonstrated gastric distention, from my evaluation urinary bladder distention. Radiology also read a right middle lobe nodule. 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 Lactic acid elevated at 2.4 Troponin at baseline 13, repeat 12.57 Magnesium level normal Urinalysis negative. Micro pending A&P Assessment and plan (1) Abdominal pain: Multifactorial. May be secondary to urinary retention, gastric retention, acute renal failure with hyperkalemia. At this point could not even rule out adrenal crisis. Placement of Marmolejo in the emergency department has alleviated some discomfort. Status: Acute (2) Bradycardia: This is improved with placement of urinary catheter. Plan on repeating EKG in 2 hours. Hold sotalol, beta-tamera Status: Acute (3) Hyperkalemia: She is now going to get some calcium gluconate, insulin and glucose in the emergency department. She is already got fluids. If remains stable, with alleviation of nausea and improved lactate will give Kayexylate Repeat BMP 2 hours Magnesium level was checked and normal Secondary to hyponatremia and hyperkalemia will administer 1 dose of hydrocortisone in case this would represent adrenal crisis. Random cortisol checked. Status: Acute (4) Acute kidney injury: Hydration Had urinary retention on CT. 600 cc drained immediately with placement of catheter Repeat creatinine in the morning Hold ARB Status: Acute (5) Elevated lactic acid level: Secondary to this we will repeat lactic acid level in approximately 2 hours. Doubt bowel ischemia Status: Acute (6) Urinary retention: Marmolejo catheter placed Status: Acute (7) Hyponatremia: Likely secondary to renal failure. Cortisol level ordered Hydrocortisone x1 Status: Acute (8) Elevated troponin: No significant delta. Status: Acute (9) Hypotension: Blood pressure 95/62. Continue to monitor. Hydration Hold all antihypertensives Status: Acute (10) Constipation: Will address once more acute complaints are resolved. May be addressed by Kayexalate when it is given. Status: Acute Additional A&P Information History of coronary disease History of stable thoracic aortic aneurysm Diabetes mellitus type 2. Sliding scale insulin. Hypertension History of COPD History of paroxysmal atrial fibrillation Multiple other medical problems as outlined in the past medical history. Full code Lovenox for DVT prophylaxis Attestations Medical Necessity Statement*: Will need greater than 2 midnight stay for evaluation and treatment of acute kidney injury with hyperkalemia Time Spent in Patient Care: Greater than 35 minutes Critical Care Time: 56 minutes spent in critical care time reviewing the patient at bedside secondary to acute kidney injury, hyperkalemia, urinary retention and gastric retention in this patient with cardiac arrhythmia which c ould significantly worsen Coding Level of Care Code Acute Husbandry Technician for Chg Fwd Diagnoses Abdominal pain R10.9 Bradycardia R00.1 Hyperkalemia E87.5 Acute kidney injury N17.9 Elevated lactic acid level R79.89 Urinary retention R33.9 Hyponatremia E87.1 Elevated troponin R79.89 Hypotension I95.9 Constipation K59.00
[2020-03-13 18:12] LABS: Add Urine Microscopic? NO
[2020-03-13 18:23] LABS: Bilirubin Urine Neg (NEGATIVE); Blood Urine Neg (Negative); Glucose Urine UA Norm (Normal); Ketones Urine Negative (Negative); Leukocyte Esterase Urine Negative (Negative); Nitrate Urine Negative (Negative); Protein Urine Neg (Negative); Urine Appearance Clear (CLEAR); Urine Color Yellow (Yellow); Urobilinogen Urine Norm (Negative); pH Urine 7 (5-7)
[2020-03-13 18:26] LABS: Troponin 5 2HR Delta -0.43 ABS# (0-10)
[2020-03-13] MEDS: calcium gluconate 0.1 gm/mL 10% SDV 10mL 1 GM IVP (18:32)
[2020-03-13] MEDS: hydrocortisone 100 mg/2 mL SDV IVP (18:33)
[2020-03-13] MEDS: dextrose 50% syringe 50 mL IVP (18:33)
[2020-03-13] MEDS: insulin regular-human 100 units/1 mL 10 UNIT IVP (18:35)
[2020-03-13 18:52] LABS: Thyroid Stimulating Hormone 7.36 uIU/mL (0.27-4.20)
[2020-03-13 18:53] LABS: Cortisol Random 47.63 ug/mL (2.47-19.5)
[2020-03-13 19:07] LABS: Creatine Phosphokinase 37 U/L (26-192)
[2020-03-13] MEDS: heparin 5,000 unit/mL INJ 1 mL 5000 UNIT SUBCUT (21:08)
[2020-03-13] MEDS: sodium chloride 0.9% 1,000 ML 100 ML IV (21:08)
--- NOTE | 2020-03-13 21:37 | ECG_ITS ---
[facility] Test Date: 2020-03-13 Pat Name: Florence Mehta Department: Room: ICU12 Gender: Female Steward/Stewardess Deck: : 1935 Requested By: Salena Wilson Order Number: [id number] Bravo MD: Benitez Vazquez M.D. Measurements Intervals [place] Rate: 65 P: 268 WA: 196 QRS: -3 QRSD: 104 T: 3 QT: 425 QTc: 443 Interpretive Statements SINUS RHYTHM WITH MARKED SINUS ARRHYTHMIA Poor R wave progression NONSPECIFIC T-WAVE ABNORMALITY Compared to ECG 03/13/2020 17:03:57 T-wave abnormality now present Junctional rhythm no longer present Myocardial infarct finding no longer present Prolonged QT interval no longer present Electronically Signed On 03-14-2020 16:42:44 CDT by Benitez Vazquez M.D. [email or web address] [id number]
[2020-03-13 22:28] LABS: Anion Gap 14.8 (5-19); Blood Urea Nitrogen 22 mg/dL (8-23); Carbon Dioxide 27 mmol/L (22-29); Chloride 94 mmol/L (98-107); Glucose 216 mg/dL (65-115); Lactate (Lactic Acid level) 1.8 mmol/L (0.5-2.2); Osmolality Calculated 275 mOsm/kg (285-295); Potassium 4.8 mmol/L (3.5-5.1); Sodium 131 mmol/L (136-145)
[2020-03-13 22:30] LABS: Troponin 5 6HR 10.92 ng/L (0-10)
[2020-03-13 22:36] LABS: Troponin 5 6HR Delta -2.08 ng/L (0-12)
[2020-03-14] VITALS (80 sets, daily range): BP systolic 112–153; BP diastolic 62–80; PULSE 59–79; RESP 10–36; TEMP 36.6–36.9; O2SAT 90–99
[2020-03-14 05:01] LABS: Alanine Aminotransferase 26 U/L (0-33); Alkaline Phosphatase 45 IU/L (35-105); Anion Gap 13.5 (5-19); Aspartate Amino Transferase 26 U/L (0-32); Blood Urea Nitrogen 20 mg/dL (8-23); Calcium 9.8 mg/dL (8.5-10.5); Carbon Dioxide 27 mmol/L (22-29); Chloride 98 mmol/L (98-107); Globulin 2.7 g/dL (1.3-4.6); Glucose 205 mg/dL (65-115); Osmolality Calculated 280 mOsm/kg (285-295); Potassium 4.5 mmol/L (3.5-5.1); Sodium 134 mmol/L (136-145); Total Bilirubin 0.4 mg/dL (0.15-1.2); Total Protein 6.7 g/dL (6.6-8.7)
[2020-03-14 07:36] LABS: Glucose Point of Care 172 mg/dL (70-110)
[2020-03-14] MEDS: pantoprazole 40 mg SDV IVP (08:07)
[2020-03-14] MEDS: heparin 5,000 unit/mL INJ 1 mL 5000 UNIT SUBCUT ×2 (08:07→21:18)
--- NOTE | 2020-03-14 08:36 | P.PN_ITS ---
Subjective Subjective: Interval history: Chart reviewed, HR in the 60s, had 160 mL urine output overnight with an additional 2300 mL this AM. K wnl, improving renal function. Sitting in recliner by bedside, no apparent distress, inquiring about oral intake as she is hungry and would like something to eat. Will transfer to floor. Medications: Reviewed: Yes Medication Review Details: Active Medications Generic Name Dose Route Start Last Admin Trade Name Freq PRN Reason Stop Dose Admin Albuterol/Ipratrop ium 3 ml 03/13/20 20:09 Duoneb INHALATION Q6H.RESPIRATORY P RN SHORTNESS OF HERBERT TH Dextrose 25 ml 03/13/20 20:09 D50w IVP ONCE PRN hypoglycemia prot ocol Protocol Dextrose 50 ml 03/13/20 20:09 D50w IVP PRN PRN hypoglycemia prot ocol Protocol Glucagon 1 mg 03/13/20 20:09 Glucagen IM ONCE PRN Adult Acute Hypog lycemia Prot. Protocol Heparin Sodium (Be ef Lung) 5,000 unit 03/13/20 20:09 03/14/20 08:07 Heparin SUBCUT 5,000 unit Q12H ISABEL Administration Sodium Chloride 1,000 mls @ 100 m ls/hr 03/13/20 20:09 03/13/20 21:08 Sodium Chloride 0.9% IV 100 mls/hr .Q10H ISABEL Administration Dextrose 500 mls @ 100 mls /hr 03/13/20 20:09 D5w IV ONCE PRN Adult Acute Hypog lycemia Prot Protocol Insulin Aspart 0 unit 03/13/20 21:00 03/14/20 07:56 Novolog SUBCUT Not Given WM&BEDTIME ISABEL Protocol Ondansetron HCl 4 mg 03/13/20 20:09 Zofran IVP Q6H PRN NAUSEA AND VOMITI NG Pantoprazole Sodiu m 40 mg 03/14/20 09:00 03/14/20 08:07 Protonix IVP 40 mg DAILY ISABEL Administration atorvastatin [From Lipitor] Allergy (Unknown, Verified 03/13/20 16:27) Unknown butorphanol Allergy (Unknown, Verified 03/13/20 16:27) Goes crazy ezetimibe [Zetia] Allergy (Unknown, Verified 03/13/20 16:27) Unknown piroxicam [From Feldene] Allergy (Unknown, Verified 03/13/20 16:27) Unknown simvastatin [From Zocor] Allergy (Unknown, Verified 03/13/20 16:27) Unknown Sulfa (Sulfonamide Antibiotics) Allergy (Unknown, Verified 03/13/20 16:27) Unknown Vitals/I&O/Wt Last Vital Signs Temp 98.3 F 03/14/20 02:05 Pulse 67 03/14/20 08:00 Resp 17 03/14/20 08:00 BP 135/77 03/14/20 07:00 Pulse Ox 92 03/14/20 08:00 03/13/20 03/14/20 03/14/20 22:59 06:59 14:59 Intake Total 240 / 240 200 / 440 Output Total 300 / 300 160 / 460 2300 / 2300 Balance -60 / -60 40 / -20 -2300 / -2300 Weight last 48 hrs Weight 74.843 kg Weight 74.843 kg Physical Exam Const: COMMON NORMALS: no acute distress and patient oriented x3 GENERAL APPEARANCE: cooperative and comfortable ORIENTATION/CONSCIOUSNESS: Yes awake OTHER: -looks younger than stated age HENMT: COMMON NORMALS: normocephalic, atraumatic, hearing grossly normal bilaterally and moist oral mucous membranes HEAD & SCALP: normocephalic and atraumatic Eye: COMMON NORMALS: Equal, round and reactive pupils present, EOMs intact bilaterally and conjunctivae normal CONJUNCTIVA: Yes conjunctivae normal PUPIL: Yes Equal, round and reactive pupils present Neck/C-Spine: COMMON NORMALS: full ROM GENERAL: Yes normal visual inspection and Yes trachea midline Resp: COMMON NORMALS: normal respiratory effort, No retractions, No use of accessory muscles and clear to auscultation bilaterally EFFORT & INSPECTION: Yes able to speak in complete sentences, Yes symmetric chest movement and No tachypneic AUSCULTATION: clear to auscultation bilaterally Cardio: COMMON NORMALS: regular rate, regular rhythm, S1 normal heart sound present, S2 normal heart sound present and No murmurs present (Cardio) RATE: regular rate RHYTHM: regular rhythm HEART SOUNDS: S1 normal heart sound present and S2 normal heart sound present GI: COMMON NORMALS: Normal to inspection, nondistended, normoactive bowel sounds present, Soft to palpation and non-tender PALPATION: Yes Soft to palpation : BLADDER/KIDNEY EXAM: Yes catheter in place Catheter type (Female): urethral Extremity: COMMON NORMALS: normal to inspection, full ROM and no clubbing, cyanosis or edema; negative for no pedal edema Neuro: COMMON NORMALS: patient oriented x3, moves all extremities, no focal motor deficits, no sensory deficits noted and gait normal Psych: COMMON NORMALS: mental status grossly normal, Normal thought process present, cooperative, normal affect and speech normal SPEECH: Yes normal sp eech THOUGHT PROCESS: Normal thought process present Skin: COMMON NORMALS: no rashes or lesions noted, no jaundice, no petechiae and no mottling GENERAL SKIN EXAM: no rashes or lesions noted Urinary Catheter Management^: Marmolejo: Cath Placed During This Visit: no Reason for Continuing Indwelling Catheter: Accurate Measurement of Urinary Output in Critically Ill Patients Data : 03/14/20 10:50 03/14/20 04:37 A&P Assessment and plan (1) Abdominal pain: -likely multifactorial given noted bladder distention prior to Marmolejo catheter placement, moderate gastric distention, constipation, acute kidney injury -pain control, antiemetics as needed -CT A/P findings reviewed -IVF hydration -noted lactic acid elevation, no leukocytosis, afebrile, VSS; low suspicion for infectious process currently -PPI -add bowel regimen -bowel rest; start on FLD and advance as tolerated -LTFs wnl Status: Acute Qualifiers: Abdominal location: generalized Qualified Code(s): R10.84 - Generalized abdominal pain (2) Constipation: -add bowel regimen, as noted above Status: Acute Qualifiers: Constipation type: unspecified constipation type Qualified Code(s): K59.00 - Constipation, unspecified (3) Acute kidney injury: -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 -baseline Cr wnl -renal function improving with hydration -Marmolejo catheter in place due to urinary distention and retention; assess daily for removal, continue to monitor Is & Os -avoid nephrotoxins, renally dose meds -continue to monitor renal function Status: Acute (4) Hyperkalemia: -K normalized following calcium gluconate, D50 and insulin -holding KCl supplementation Status: Resolved (5) Bradycardia: -HR in 60-70 range -holding BB and Sotalol; recently started on Ranexa -has hx of parosymal atrial fibrillation -telemetry monitoring Status: Resolved (6) Elevated troponin: -with no significant delta noted -has known hx of CAD s/p CABG Status: Acute (7) COPD with emphysema: -no acute exacerbation -CXR noted as well as RML nodule on CT Status: Chronic Qualifiers: Emphysema type: other Qualified Code(s): J43.8 - Other emphysema (8) Controlled type 2 diabetes mellitus with hyperglycemia, without long-term current use of insulin: -metformin on hold -Accuchecks, ISS -consistent carb/cardiac diet once PO appropriate Status: Chronic (9) Urinary retention: -has Marom[place]jo catheter in place Status: Acute (10) Hypotension: -received dose of hydrocortisone due to noted hypotension, hyperkalemia and hyponatremia -random cortisol level-47.63 Status: Resolved Qualifiers: Hypotension type: unspecified hypotension type Qualified Code(s): I95.9 - Hypotension, unspecified (11) Benign hypertension: -VSS; continue to monitor -if continued stability in blood pressure, may consider resuming Amlodipine Status: Chronic (12) Hyponatremia: -improving -likely secondary to acute renal impairment Status: Acute (13) Generalized anxiety disorder: Status: Chronic Additional A&P Information -Advanced age -hx of prior CVA -Hyperlipidemia -hx of CAD s/p CABG -known descending aortic aneurysm and aortic dissection; both stable -RML nodule; will need surveillance imaging -elevated TSH, check free T4, no prior hx of thyroid disease -GI ppx with PPI -DVT ppx with heparin -Dispo: home -Code status: FULL code -transfer to floor Attestations Medical Necessity Statement*: Patient requires hospitalization for continued management of abdominal pain pending PO tolerance, acute renal impairment and needs continued monitoring of renal function. Time Spent in Patient Care: Greater than 35 minutes (>than 50% of time spent in counselling and/or direct pt care on unit) . Coding Level of Care Code Acute Mortgage Loan Counselor for Chg Fwd Exam Comprehensive Diagnoses Abdominal pain R10.84 Abdominal location: generalized Constipation K59.00 Constipation type: unspecified constipation type Acute kidney injury N17.9 Hyperkalemia E87.5 Bradycardia R00.1 Elevated troponin R79.89 COPD with emphysema J43.8 Emphysema type: other Controlled type 2 diabetes mellitus with hyperglycemia, without long-term current use of insulin E11.65 Urinary retention R33.9 Hypotension I95.9 Hypotension type: unspecified hypotension type Benign hypertension I10 Hyponatremia E87.1 Generalized anxiety disorder F41.1
[2020-03-14] MEDS: sennosides-docusate Tablet 2 TAB PO ×2 (09:24→18:02)
--- NOTE | 2020-03-14 10:54 | PC.RESP ---
Pulmonary Rehab information sent to patient.
[2020-03-14] MEDS: sodium chloride 0.9% 1,000 ML 100 ML IV ×2 (10:56→22:49)
--- NOTE | 2020-03-14 10:59 | PC.RESP ---
Pulmonary Rehab information sent to patient.
[2020-03-14 11:32] LABS: Basophils % 0.4 %; Eosinophils # 0.1 10^3/uL (0.0-0.8); Eosinophils % 0.9 %; Hematocrit 35.4 % (37.0-47.0); Hemoglobin 11.2 g/dL (11.5-15.3); Lymphocytes # 1.1 10^3/uL (0.8-4.8); Lymphocytes % 16.4 %; Mean Corpuscular HGB Conc 31.6 g/dL (30.0-36.0); Mean Corpuscular Hemoglobin 30.1 pg (28.0-34.0); Mean Corpuscular Volume 95.2 fL (81-99); Mean Platelet Volume 11.6 fL (7.4-10.4); Monocytes # 0.6 10^3/uL (0.2-0.9); Monocytes % 8.1 %; Neutrophils # 5.05 10^3/uL (1.8-7.7); Neutrophils % 73.3 %; Nucleated Red Blood Cells % 0 %; Platelet Count 132 10^3/cmm (130-400); Red Blood Count 3.72 10^6/uL (4.1-5.3); Red Cell Distribution Width 14.4 % (12.1-15.1); White Blood Count 6.9 10^3/uL (4.0-10.0)
[2020-03-14 11:42] LABS: Glucose Point of Care 134 mg/dL (70-110)
--- NOTE | 2020-03-14 12:17 | PC.NURSE ---
Transfer to floor Patient transferred via wheelchair by nurse to [facility] All belongings sent with patient. Patient oriented to room and call light within reach.
[2020-03-14] MEDS: sertraline 50 mg Tablet PO (13:10)
[2020-03-14 17:24] LABS: Glucose Point of Care 123 mg/dL (70-110)
[2020-03-14 20:25] LABS: Glucose Point of Care 157 mg/dL (70-110)
--- NOTE | 2020-03-14 20:36 | PC.NURSE ---
Removed Marmolejo, pt tolerated well. 8mls of fluid removed from bulb and catheter tip intact after removal.
[2020-03-15] VITALS (8 sets, daily range): BP systolic 118–139; BP diastolic 71–74; PULSE 68–118; RESP 18–22; TEMP 36.8–36.9; O2SAT 89–97
--- NOTE | 2020-03-15 02:17 | PC.NURSE ---
Got pt up to use the restroom after removing haynes around 2029. Pt urinated in the hat 150mls but also missed the hat, urinating in the toilet.
[2020-03-15 03:57] LABS: Alanine Aminotransferase 30 U/L (0-33); Alkaline Phosphatase 40 IU/L (35-105); Anion Gap 11.5 (5-19); Aspartate Amino Transferase 29 U/L (0-32); Blood Urea Nitrogen 12 mg/dL (8-23); Calcium 8.6 mg/dL (8.5-10.5); Carbon Dioxide 28 mmol/L (22-29); Chloride 106 mmol/L (98-107); Globulin 1.8 g/dL (1.3-4.6); Glucose 77 mg/dL (65-115); Osmolality Calculated 289 mOsm/kg (285-295); Potassium 3.5 mmol/L (3.5-5.1); Sodium 142 mmol/L (136-145); Total Bilirubin 0.4 mg/dL (0.15-1.2); Total Protein 5.8 g/dL (6.6-8.7)
[2020-03-15 04:08] LABS: Free T4 Free Thyroxine 0.94 ng/dL (0.82-1.77)
[2020-03-15 06:32] LABS: Glucose Point of Care 109 mg/dL (70-110)
--- NOTE | 2020-03-15 08:00 | P.DS_ITS ---
Discharge Providers Date of Admission: 03/13/20 18:48 Date of Discharge: March 15, 2020 Attending Provider at Admission: Casimiro Velazquez MD Attending Provider at Discharge: Melina Contreras MD Primary Care Provider: Rui Becker Diagnoses at Discharge Discharge Diagnosis (1) Abdominal pain: Status: Resolved Problem details: -likely multifactorial given noted bladder distention prior to Marmolejo catheter placement, moderate gastric distention, constipation, acute kidney injury -pain control, antiemetics as needed -CT A/P findings reviewed -IVF hydration -noted lactic acid elevation, no leukocytosis, afebrile, VSS; low suspicion for infectious process currently -PPI -on bowel regimen -advance to GI soft diet -LTFs wnl Qualifiers: Abdominal location: generalized Qualified Code(s): R10.84 - Generalized abdominal pain (2) Constipation: Status: Chronic Problem details: -on bowel regimen, as noted above Qualifiers: Constipation type: unspecified constipation type Qualified Code(s): K59.00 - Constipation, unspecified (3) Acute kidney injury: Status: Resolved Problem details: -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 -baseline Cr wnl -renal function normalized with hydration; d/c IVF -Marmolejo catheter discontinued and has been able to void independently without difficulty -avoid nephrotoxins, renally dose meds (4) Hyperkalemia: Status: Resolved (5) Bradycardia: Status: Resolved Problem details: -HR wnl -hold Sotalol and Ranexa; resume low dose BB and lower dose of Sotalol due to hx of parosymal atrial fibrillation -telemetry monitoring (6) Elevated troponin: Status: Acute Problem details: -with no significant delta noted -has known hx 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 Problem details: -no acute exacerbation -CXR noted as well as RML nodule on CT Qualifiers: Emphysema type: other Qualified Code(s): J43.8 - Other emphysema (8) Controlled type 2 diabetes mellitus with hyperglycemia, without long-term current use of insulin: Status: Chronic Problem details: -metformin on hold; can resume oral hypoglycemic agents on d/c -Accuchecks, ISS -consistent carb/cardiac diet (9) Urinary retention: Status: Resolved (10) Hypotension: Status: Resolved Qualifiers: Hypotension type: unspecified hypotension type Qualified Code(s): I95.9 - Hypotension, unspecified (11) Benign hypertension: Status: Chronic Problem details: -resume low dose BB and lasix; hold Amlodipine, Imdur (12) Hyponatremia: Status: Resolved (13) Generalized anxiety disorder: Status: Chronic Other Information Additional DC diagnoses/information: -Advanced age -hx of prior CVA -Hyperlipidemia; statin discontinued due to myalgia -hx of CAD s/p CABG; f/u with Dr. Alejandre -known descending aortic aneurysm and aortic dissection; both stable -RML nodule; will need surveillance imaging which can be done by PCP -elevated TSH, normal free T4, no prior hx of thyroid disease; consistent with subclinical hypothyroidism Reason for Visit Reason for Visit: BRADYCARDIA Hospital Course Hospital Course: Patient was admitted to ICU for close monitoring of hemodynamic status given hypotension and bradycardia noted on admission. Her oral antihypertensives and antiarrhythmic medications were held with noted improvement in her blood pressure and heart rate. Due to noted significant bladder distention on imaging she had a Marmolejo catheter placed which is subsequently been removed and she has been able to void independently without difficulty. She had initially presented with complaints of abdominal pain and discomfort all of which has since resolved, she is tolerating oral intake without difficulty. Constipation is likely contributing to her symptoms which she reports as a chronic issue and she does take laxatives at home. Once more hemodynamically stable she was transferred to the medical surgical floor for continued monitoring. Low-dose beta-tamera has been resumed as well as low- dose Lasix but most of her other cardiac medications will need to be held until appropriate follow-up with her primary care provider and/or cardiology. She is advised to seek medical attention immediately should any of her symptoms recur. She was hydrated with IV fluids secondary to noted acute kidney injury, hyponatremia and hyperkalemia all of which have resolved. She was noted to have some moderate gastric distention on CT of the abdomen and pelvis but no amy infectious process identified. Urinalysis was unremarkable, she has been afebrile, with no noted leukocytosis during her hospital stay despite noted lactic acid elevation. Chest x-ray was also unremarkable and though she ini tially required some supplemental oxygen support this has since been weaned off. She has been ambulatory per her baseline. Discharge Summary: -Patient to follow-up with her primary care provider within 1 week -Patient to continue to follow-up with cardiology Physical Exam Const: COMMON NORMALS: no acute distress and patient oriented x3 GENERAL APPEARANCE: cooperative and comfortable ORIENTATION/CONSCIOUSNESS: Yes awake OTHER: -looks younger than stated age HENMT: COMMON NORMALS: normocephalic, atraumatic, hearing grossly normal bilaterally and moist oral mucous membranes HEAD & SCALP: normocephalic and atraumatic Eye: COMMON NORMALS: Equal, round and reactive pupils present, EOMs intact bilaterally and conjunctivae normal CONJUNCTIVA: Yes conjunctivae normal PUPIL: Yes Equal, round and reactive pupils present Neck/C-Spine: COMMON NORMALS: full ROM GENERAL: Yes normal visual inspection and Yes trachea midline Resp: COMMON NORMALS: normal respiratory effort, No retractions, No use of accessory muscles and clear to auscultation bilaterally EFFORT & INSPECTION: Yes able to speak in complete sentences, Yes symmetric chest movement and No tachypneic AUSCULTATION: clear to auscultation bilaterally Cardio: COMMON NORMALS: regular rate, S1 normal heart sound present, S2 normal heart sound present and No murmurs present (Cardio) RATE: regular rate RHYTHM: abnormal rhythm irregularly irregular HEART SOUNDS: S1 normal heart sound present and S2 normal heart sound present GI: COMMON NORMALS: Normal to inspection, nondistended, normoactive bowel sounds present, Soft to palpation and non-tender PALPATION: Yes Soft to palpation : BLADDER/KIDNEY EXAM: Yes catheter in place Catheter type (Female): urethral Extremity: COMMON NORMALS: normal to inspection, full ROM and no clubbing, cyanosis or edema; negative for no pedal edema Neuro: COMMON NORMALS: patient oriented x3, moves all extremities, no focal motor deficits, no sensory deficits noted and gait normal Psych: COMMON NORMALS: mental status grossly normal, Normal thought process present, cooperative, normal affect and speech normal SPEECH: Yes normal speech THOUGHT PROCESS: Normal thought process present Skin: COMMON NORMALS: no rashes or lesions noted, no jaundice, no petechiae and no mottling GENERAL SKIN EXAM: no rashes or lesions noted Urinary Catheter Management^: Marmolejo: Cath Placed During This Visit: yes, but has since been removed by the nurse Reason for Continuing Indwelling Catheter: Decision to DC Catheter Date Urinary Catheter Removed: 03/14/20 Time Urinary Catheter Discontinued: 20:36 Discharge Data Data Completed and Pending: Completed Studies During Hospitalization Category Date Time Status CT abdomen pelvis w con* [id number] Urge nt Cat Scan 03/13/20 15:37 Completed XR chest 1V rossana ble [id number] Stat Exams 03/13/20 15:37 Completed Pending at discharge Category Date Time Status Complete Blood Co unt w/Auto DAILY Lab 03/15/20 10:00 Ordered Complete Blood Co unt w/Auto DAILY Lab 03/16/20 10:00 Ordered Comprehensive Met abolic Panel AM LA BS Lab 03/16/20 04:00 Ordered Labs from last 24 hours 03/15/20 03/15/20 03/15/20 06:28 03:25 03:25 WBC RBC Hgb Hct MCV MCH MCHC RDW Plt Count MPV Neut % (Auto) Lymph % (Auto) [place] % (Auto) Eos % (Auto) Baso % (Auto) Neut # (Auto) Lymph # (Auto) [place] # (Auto) Eos # (Auto) Baso # (Auto) Nucleated RBC % (a uto) Nucleated RBCs # Sodium 142 Potassium 3.5 Chloride 106 Carbon Dioxide 28 Anion Gap 11.5 BUN 12 Creatinine 0.9 Glucose 77 POC Glucose 109 Calculated Osmolal ity 289 Calcium 8.6 Total Bilirubin 0.4 AST 29 ALT 30 Alkaline Phosphata se 40 Total Protein 5.8 L Albumin 4.0 Globulin 1.8 Free T4 0.94 03/14/20 03/14/20 03/14/20 20:08 17:17 10:50 WBC 6.9 RBC 3.72 L Hgb 11.2 L Hct 35.4 L MCV 95.2 MCH 30.1 MCHC 31.6 RDW 14.4 Plt Count 132 MPV 11.6 H Neut % (Auto) 73.3 Lymph % (Auto) 16.4 [place] % (Auto) 8.1 Eos % (Auto) 0.9 Baso % (Auto) 0.4 Neut # (Auto) 5.05 Lymph # (Auto) 1.1 [place] # (Auto) 0.6 Eos # (Auto) 0.1 Baso # (Auto) 0.0 Nucleated RBC % (a uto) 0 Nucleated RBCs # 0.0 Sodium Potassium Chloride Carbon Dioxide Anion Gap BUN Creatinine Glucose POC Glucose 157 123 Calculated Osmolal ity Calcium Total Bilirubin AST ALT Alkaline Phosphata se Total Protein Albumin Globulin Free T4 03/14/20 10:39 WBC RBC Hgb Hct MCV MCH MCHC RDW Plt Count MPV Neut % (Auto) Lymph % (Auto) [place] % (Auto) Eos % (Auto) Baso % (Auto) Neut # (Auto) Lymph # (Auto) [place] # (Auto) Eos # (Auto) Baso # (Auto) Nucleated RBC % (a uto) Nucleated RBCs # Sodium Potassium Chloride Carbon Dioxide Anion Gap BUN Creatinine Glucose POC Glucose 134 Calculated Osmolal ity Calcium Total Bilirubin AST ALT Alkaline Phosphata se Total Protein Albumin Globulin Free T4 Vitals: Last Vital Signs Temp 98.3 F 03/15/20 07:50 Pulse 81 03/15/20 07:50 Resp 18 03/15/20 07:50 BP 139/74 03/15/20 07:50 Pulse Ox 92 03/15/20 07:50 Discharge Plan Discharge Patient Disposition: Home, Self-Care Condition: Stable Prescriptions: New Miralax 17 gram Powder In Packet 17 g PO DAILY Qty: 30 RF: 0 sennosides-docusate sodium 8.6-50 mg Tablet 1 tab PO BID Qty: 60 RF: 0 metoprolol tartrate 25 mg Tablet 25 mg PO BID Qty: 30 RF: 0 Continued ascorbate calcium (vitamin C) 500 mg tablet 500 mg PO DAILY RF: 0 multivitamin Tablet 1 tab PO DAILY RF: 0 aspirin [Adult Low Dose Aspirin] 81 mg tablet,delayed release (DR/EC) 81 mg PO DAILY RF: 0 cascara sagrada 450 mg capsule 450 mg PO BID RF: 0 (DME) lancets 30 gauge misc See Rx Instructions ea .ROUTE .MEDSUPPLY Qty: 25 RF: 0 fenofibrate nanocrystallized 48 mg tablet 48 ea PO DAILY RF: 0 magnesium oxide 400 mg (241.3 mg magnesium) tablet 400 mg PO DAILY RF: 0 (DME) True Metrix Glucose Test Strip Strip See Rx Instructions ea .ROUTE .MEDSUPPLY Qty: 10 RF: 0 clopidogrel 75 mg tablet 75 ea PO DAILY RF: 0 albuterol sulfate [Ventolin HFA] 90 mcg/actuation HFA aerosol inhaler 2 puff INHALATION QID PRN (Reason: shortness of breath or wheezing) Qty: 18 RF: 5 cyanocobalamin (vitamin B-12) 1,000 mcg/mL solution 1,000 mcg IM .on 1st and 16 7 Days Qty: 2 RF: 5 ferrous gluconate 324 mg (38 mg iron) tablet 324 mg PO .every other day Qty: 30 RF: 5 glimepiride 4 mg tablet 4 mg PO QAM Qty: 30 RF: 5 metformin 500 mg tablet extended release 24 hr 1,000 mg PO QDAY Qty: 60 RF: 5 sertraline 50 mg tablet 50 mg PO QDAY Qty: 30 RF: 5 Januvia 100 mg tablet 100 mg PO QDAY Qty: 30 RF: 5 potassium chloride 10 mEq tablet extended release 10 meq PO DAILY Qty: 30 RF: 11 nitroglycerin 0.4 mg tablet, sublingual 0.4 mg SUBLINGUAL Q5M PRN (Reason: chest pain) Qty: 1 RF: 2 Changed furosemide 40 mg tablet 20 mg PO DAILY Qty: 30 RF: 11 sotalol 160 mg tablet 80 mg PO BID Qty: 0 RF: 0 Discontinued irbesartan 300 mg tablet 300 mg PO QDAY Qty: 30 RF: 5 isosorbide mononitrate 120 mg tablet extended release 24 hr 120 mg PO DAILY Qty: 30 RF: 11 amlodipine 10 mg tablet 10 mg PO DAILY Qty: 90 RF: 3 metoprolol tartrate 50 mg tablet 50 mg PO BID PRN (Reason: atrial fibrillation) Qty: 60 RF: 11 ranolazine [Ranexa] 500 mg tablet extended release 12 hr 500 mg PO BID Qty: 60 RF: 3 Discharge Orders: Discharge Order (Routine); Ordered 03/15/20 Ordered By: Melina Contreras Referrals: Rui Becker, CORE ANALYSIS OPERATOR-C [Family Provider] - 4-7 days (Post hospital discharge follow up. Needs review of antihypertensive and cardiac medications. ) Discharge Diet: Cardiac and Diabetic Discharge Activity: Increase activity as tolerated Activity Restrictions/Additional Instructions: -Please continue to follow up with Dr. Alejandre as scheduled -Please check blood pressure once daily, preferably in the surgical territory manager, and keep a log for review with your primary care provider -Please pay close attention to the changes made to your medications Discharge Attestations Time Spent in Discharge Care*: greater than 30 min Specific Discharge Activities: Specific discharge activities: educating patient, discussing with binder caser/social workers/dc planners, documenting/other paperwork and evaluating patient/reviewing data Status at Discharge: Cognitive status at discharge: cognitively intact , Behavioral status at discharge: cooperative , Functional status at discharge: independent ambulation Overall status at discharge: patient is back to baseline Quality Metrics Clinical Quality Measures During this hospital stay, did patient experience: None Coding Level of Care Code Acute Student Driving Instructor for Chg Fwd Exam Comprehensive Diagnoses Abdominal pain R10.84 Abdominal location: generalized Constipation K59.00 Constipation type: unspecified constipation type Acute kidney injury N17.9 Hyperkalemia E87.5 Bradycardia R00.1 Elevated troponin R79.89 COPD with emphysema J43.8 Emphysema type: other Controlled type 2 diabetes mellitus with hyperglycemia, without long-term current use of insulin E11.65 Urinary retention R33.9 Hypotension I95.9 Hypotension type: unspecified hypotension type Benign hypertension I10 Hyponatremia E87.1 Generalized anxiety disorder F41.1
[2020-03-15] MEDS: pantoprazole 40 mg SDV IVP (08:35)
[2020-03-15] MEDS: multivitamin therapeutic Tablet 1 TAB PO (08:36)
[2020-03-15] MEDS: polyethylene glycol 3350 Pkt 17 gm PO (08:36)
[2020-03-15] MEDS: sertraline 50 mg Tablet PO (08:36)
[2020-03-15] MEDS: sennosides-docusate Tablet 2 TAB PO (08:36)
[2020-03-15] MEDS: metoprolol tartrate 25 mg Tablet PO (08:51)
[2020-03-15] MEDS: ipratropium-albuterol 3 mL Neb INHALATION (09:12)
[2020-03-15] MEDS: heparin 5,000 unit/mL INJ 1 mL 5000 UNIT SUBCUT (09:31)
[2020-03-15 10:43] LABS: Basophils % 0.5 %; Eosinophils # 0.2 10^3/uL (0.0-0.8); Eosinophils % 2.8 %; Hematocrit 39.9 % (37.0-47.0); Lymphocytes % 16.7 %; Mean Corpuscular HGB Conc 30.1 g/dL (30.0-36.0); Mean Corpuscular Hemoglobin 29.8 pg (28.0-34.0); Mean Platelet Volume 11.3 fL (7.4-10.4); Monocytes # 0.5 10^3/uL (0.2-0.9); Monocytes % 8.2 %; Neutrophils # 4.24 10^3/uL (1.8-7.7); Neutrophils % 70.6 %; Nucleated Red Blood Cells % 0 %; Platelet Count 140 10^3/cmm (130-400); Red Blood Count 4.03 10^6/uL (4.1-5.3); Red Cell Distribution Width 14.6 % (12.1-15.1)
== END 2020-03-15 11:35 | disposition home or self-care (01) | DRG 683 ==
LOC: ER 18:27 → ICU 19:48 → MEDSURG 03-14 12:04
PROVIDERS: Emergency Medicine; Admitting Provider Internal Medicine; Family Provider Nurse Practitioner; Visit Provider Family Medicine
DX: N17.9 Acute kidney failure, unspecified (principal); E87.1 Hypo-osmolality and hyponatremia; K59.00 Constipation, unspecified; I95.9 Hypotension, unspecified; R33.9 Retention of urine, unspecified; E87.5 Hyperkalemia; R00.1 Bradycardia, unspecified; N18.3 Chronic kidney disease, stage 3 (moderate); J43.9 Emphysema, unspecified; I12.9 Hypertensive chronic kidney disease with stage 1 through stage 4 chronic kidney disease, or unspecified chronic kidney disease; F41.1 Generalized anxiety disorder; Z86.73 Personal history of transient ischemic attack (TIA), and cerebral infarction without residual deficits; I25.10 Atherosclerotic heart disease of native coronary artery without angina pectoris; Z95.1 Presence of aortocoronary bypass graft; E02 Subclinical iodine-deficiency hypothyroidism; Z79.82 Long term (current) use of aspirin; Z79.02 Long term (current) use of antithrombotics/antiplatelets
CPT/HCPCS: 12345; 36415; 36416; 71045; 74177; 80048; 80053; 81003; 82533; 82550; 82962; 83605; 83735; 84439; 84443; 84484; 85025; 85610; 86850; 86900; 93005; 94640; 96372; 96375; 99284; C9113; J0610; J1644; J1720; J1815; J2270; J2405; J7030; Q9967

== ENCOUNTER 2020-03-24 11:07 | Outpatient (CLI) | payer MEDICARE, OTHER, SELFPAY ==
--- NOTE | 2020-03-24 11:00 | USCV_ITS ---
Florence Mehta Age: 84 Gender: F : 1935 Exam Date: 03/24/2020 11:10 Ordering Phys: Andrei Alejandre MD ([email or web address]) Technologist: Alyssa Tirado Exam Location: [facility] [place] Indication: VISUAL DISTURBANCE, CAROTID BRUIT Risk Factors: Previous Vascular Surgery: Right Brachial BP: / Left Brachial BP: / Right Left Velocity (cm/s) Spectral Plaque Velocity (cm/s) Spectral Plaque Syst/Diast Broadening Syst/Diast Broadening 48.50/ 8.80 Prox CCA 48.50 / 6.60 40.80/ 9.90 Mid CCA 59.50 / 16.50 35.30/ 5.50 Distal CCA 48.50 / 13.20 67.30/ 18.70 Prox ICA 61.70 / 16.50 48.50/ 18.70 Mid ICA 46.30 / 13.20 63.90/ 24.30 Distal ICA 83.80 / 28.70 101.40 ECA 131.20 1.65 ICA/CCA 1.41 Antegrade Vertebral Antegrade 63.90/ 24.30 cm/s 50.70/ 16.50 cm/s Tri Subclavian Tri FINDINGS Moderate heterogeneous plaques bilaterally at the bifurcations and proximal carotid arteries. Intimal thickening and minimal plaques in the common carotid arteries bilaterally. Antegrade flow in the vertebral arteries bilaterally. Normal Doppler flow velocities in the external carotid arteries bilaterally. CONCLUSIONS Moderate heterogeneous plaques bilaterally at the bifurcations and proximal carotid arteries with velocity elevation consistent with 16-49% stenosis. Intimal thickening and minimal plaques in the common carotid arteries bilaterally. Dr Andrei Alejandre MD [facility] (Electronically Signed) Final Date: 27 March 2020 19:56 S
== END 2020-03-24 11:08 | disposition home or self-care (01) ==
LOC: RAD 11:09
PROVIDERS: PCP Nurse Practitioner; Visit Provider Internal Medicine Cardiovascular Disease
DX: H53.9 Unspecified visual disturbance (principal); I65.23 Occlusion and stenosis of bilateral carotid arteries
CPT/HCPCS: 93880

== ENCOUNTER → 2020-08-04 14:48 | Outpatient (BNVA) | payer MEDICARE, OTHER, SELFPAY | PROVIDERS: PCP Nurse Practitioner; Visit Provider Internal Medicine Cardiovascular Disease | DX: R06.02 Shortness of breath (principal); H53.19 Other subjective visual disturbances; R53.83 Other fatigue; I48.0 Paroxysmal atrial fibrillation; I50.33 Acute on chronic diastolic (congestive) heart failure; I50.32 Chronic diastolic (congestive) heart failure; R07.9 Chest pain, unspecified | CPT/HCPCS: 80048; 83880 ==

== ENCOUNTER 2020-08-09 10:55 | Outpatient (CLI) | payer MEDICARE, OTHER, SELFPAY ==
--- NOTE | 2020-08-09 11:11 | XR_ITS ---
WS: [id number] CHEST 2 VIEWS HISTORY: SHORTNESS OF BREATH COMPARISON: 03/13/2020 Lungs: Mild chronic emphysema. Minimal atelectasis or scar at the LEFT costophrenic angle. No pneumon ia. Normal vasculature. Cardiac size: Mildly enlarged cardiac silhouette. Mediastinum/Aorta: Marked atherosclerosis with ectasia and dilatation of aorta. Maximum diameter is 4 .7 cm of the descending aorta. Prior CABG. Bones: Diffuse osteopenia. XR/XR chest 2V* [id number] IMPRESSION: 1. Chronic emphysema. 2. Calcified dilated thoracic aorta. Maximum diameter is 4.7 cm.
--- NOTE | 2020-08-09 11:11 | USCV_ITS ---
Florence Mehta Age: 84 Gender: F : 1935 Exam Date: 08/09/2020 11:30 Ordering Phys: Andrei Alejandre MD ([email or web address]) Technologist: Anita Belle [place] [facility] [place]: SOB BP: 110 / 63 HR: 77 Rhythm: Sinus Technical Quality: Adequate MEASUREMENTS (Male / Female) Normal Values 2D ECHO LV Diastolic Diameter PLAX 2.3 cm 4.2 - 5.9 / 3.9 - 5.3 cm LV Systolic Diameter PLAX 1.7 cm LV Chamber Size 2.3 cm IVS Diastolic Thickness 1.7 cm 0.6 - 1.0 / 0.6 - 0.9 cm IVS Systolic Thickness 1.9 cm LVPW Diastolic Thickness 2.2 cm 0.6 - 1.0 / 0.6 - 0.9 cm LVPW Systolic Thickness 2.7 cm RV Chamber Size 2.7 cm LVOT Diameter 2.0 cm LV Ejection Fraction 2D Teich 52.4 % LV Ejection Fraction MOD 2C 69.5 % LV Ejection Fraction 2C AL 69.3 % LA Diameter 3.7 cm LA Width 2.6 cm LA Height 3.8 cm RA Width 2.3 cm RA Height 3.2 cm Aorta at Sinotubular Diameter 2.8 cm M-MODE LV Diastolic Diameter MM 4.1 cm 4.2 - 5.9 / 3.9 - 5.3 cm LV Systolic Diameter MM 2.7 cm LV Ejection Fraction MM Teich 62.9 % IVS Diastolic Thickness MM 0.6 cm 0.6 - 1.0 / 0.6 - 0.9 cm IVS Systolic Thickness MM 1.0 cm LVPW Diastolic Thickness MM 0.8 cm 0.6 - 1.0 / 0.6 - 0.9 cm LVPW Systolic Thickness MM 1.1 cm Aortic Annulus Diameter 3.6 cm LA Ao Ratio MM 1.1 MV E Point Septal Separation 1.4 cm DOPPLER AV Peak Velocity 123.0 cm/s LVOT Peak Velocity 88.0 cm/s AV Area Cont Eq vti 2.2 cm squared AV Area Cont Eq pk 2.4 cm squared MV Area PHT 6.3 cm squared Mitral E to A Ratio 2.1 MV E' Velocity 55.5 cm/s Mitral E to MV E' Ratio 7.5 Mitral E to LV E' Lateral Ratio 6.8 Mitral E to LV E' Septal Ratio 8.6 TR Peak Velocity 215.7 cm/s TR Peak Gradient 18.6 mmHg TR Mean Velocity 151.5 cm/s TR Mean Gradient 11.0 mmHg TR Velocity Time Integral 57.5 cm TV Peak E Velocity 46.0 cm/s Right Atrial Pressure 3.0 mmHg Pulmonary Artery Systolic Pressu 21.6 mmHg PV Peak Velocity 82.0 cm/s RV Acceleration Time 0.0 s RV Ejection Time 0.3 s RV AcT/ET 0.2 FINDINGS Left Ventricle Mild diffuse hypokinesia of the septum. Somewhat dyskinetic inferobasal segment. Overall ejection fraction is around 55%. Mild concentric left renal hypertrophy Right Ventricle The right ventricle is normal in size and function. Right Atrium Moderately increased right atrial size. Left Atrium The left atrium is normal in size. Mitral Valve Moderate mitral valve regurgitation. Aortic Valve Mild aortic valve regurgitation. Tricuspid Valve [id number] eccentric tricuspid valve regurgitation. Pulmonic Valve No gross abnormalities noted Pericardium Normal pericardium without effusion. Aorta Normal ascending aorta dimension. CONCLUSIONS Mild diffuse hypokinesia of the septum. Somewhat dyskinetic inferobasal segment. Overall ejection fraction is around 55%. Moderately increased right atrial size. Moderate mitral valve regurgitation. Mild aortic valve regurgitation. [id number] eccentric tricuspid valve regurgitation. Estimated pulmonary artery peak systolic pressure of 22 mmHg. There is no pericardial effusion. There are no intracardiac masses. Compared to the study from 09/29/2013, there is some worsening of the valvular regurgitations. Dr Andrei Alejandre MD FAC (Electronically Signed) Final Date: 10 August 2020 09:14 S
== END 2020-08-09 10:56 | disposition home or self-care (01) ==
LOC: RAD 10:58
PROVIDERS: PCP Nurse Practitioner; Visit Provider Internal Medicine Cardiovascular Disease
DX: R06.02 Shortness of breath (principal); I08.3 Combined rheumatic disorders of mitral, aortic and tricuspid valves; J43.9 Emphysema, unspecified; I70.0 Atherosclerosis of aorta
CPT/HCPCS: 71046; 93306

== ENCOUNTER → 2020-08-17 10:44 | Outpatient (BNVA) | payer MEDICARE, OTHER, SELFPAY | PROVIDERS: PCP Nurse Practitioner; Visit Provider Internal Medicine Cardiovascular Disease | DX: R06.02 Shortness of breath (principal); I71.01 Dissection of thoracic aorta; I50.32 Chronic diastolic (congestive) heart failure; I25.10 Atherosclerotic heart disease of native coronary artery without angina pectoris; I48.0 Paroxysmal atrial fibrillation | CPT/HCPCS: 80048; 83880 ==

== ENCOUNTER → 2020-09-29 11:40 | Outpatient (BNVA) | payer MEDICARE, OTHER, SELFPAY | PROVIDERS: PCP Nurse Practitioner; Visit Provider Nurse Practitioner | DX: M25.552 Pain in left hip (principal); E11.65 Type 2 diabetes mellitus with hyperglycemia | CPT/HCPCS: 73502; 80053; 82043; 83036; 84443; 85025 ==

== ENCOUNTER → 2020-12-08 09:05 | Outpatient (BNVA) | payer MEDICARE, OTHER, SELFPAY | PROVIDERS: PCP Nurse Practitioner; Visit Provider Nurse Practitioner | DX: E11.65 Type 2 diabetes mellitus with hyperglycemia (principal); E55.9 Vitamin D deficiency, unspecified; I48.0 Paroxysmal atrial fibrillation | CPT/HCPCS: 80053; 80061; 81003; 82306; 82607; 83036; 84443; 85025 ==

== ENCOUNTER → 2021-05-03 12:13 | Outpatient (BNVA) | payer MEDICARE, OTHER, SELFPAY | PROVIDERS: PCP Nurse Practitioner; Visit Provider Nurse Practitioner | DX: E53.8 Deficiency of other specified B group vitamins (principal); E11.65 Type 2 diabetes mellitus with hyperglycemia; I48.0 Paroxysmal atrial fibrillation; I25.10 Atherosclerotic heart disease of native coronary artery without angina pectoris; E78.2 Mixed hyperlipidemia; F41.1 Generalized anxiety disorder; E55.9 Vitamin D deficiency, unspecified | CPT/HCPCS: 80053; 80061; 81000; 82306; 82607; 83036; 84443 ==

== ENCOUNTER 2021-05-11 14:47 | Emergency (ER) | payer MEDICARE, OTHER, SELFPAY ==
[2021-05-11 14:55] VITALS: BP 122/66; PULSE 73; RESP 16; TEMP 36.7; O2SAT 93; BMI 24.8
--- NOTE | 2021-05-11 15:00 | ECG_ITS ---
[facility] Test Date: 2021-05-11 Pat Name: Florence Mehta Department: Room: Gender: Female Tube Tester: : 1935 Requested By: Tung Babcock Order Number: [id number] Bravo MD: Sy Chung M.D. Measurements Intervals [place] Rate: 71 P: 259 KS: 155 QRS: -8 QRSD: 94 T: -7 QT: 427 QTc: 467 Interpretive Statements SINUS RHYTHM MODERATE VOLTAGE CRITERIA FOR LVH, CONSIDER NORMAL VARIANT [MEETS CRITERIA IN ONE OF: R(aVL), S(V1), R(V5), R(V5/V6)+S(V1)] INFERIOR MYOCARDIAL INFARCTION , OF INDETERMINATE AGE [40+ ms Q WAVE AND/OR ST/T ABNORMALITY IN II/aVF] Compared to ECG 03/13/2020 23:19:01 Myocardial infarct finding now present Sinus arrhythmia no longer present Poor R-wave progression no longer present T-wave abnormality no longer present Electronically Signed On 05-11-2021 20:04:13 CDT by Sy Chung M.D. [email or web address]
--- NOTE | 2021-05-11 15:01 | XR_ITS ---
WS: [id number] Portable AP upright chest, 05/11/2021 Clinical Data: chest pain Comparison: PA and lateral chest, 08/09/2020. Findings: No nodules, masses or effusions are seen. The heart is normal. The pulmonary vascularity is not increased. No pneumonia or pneumothorax is seen. The aortic arch and descending thoracic aorta s how calcification and dilatation. Midline sternotomy sutures are noted. The diaphragms are flattened. There is a monitor lead on the chest wall. XR/XR chest 1V portable [id number] Impression: 1. Atherosclerosis and dilated descending thoracic aorta. 2. Hyperinflation.
[2021-05-11 15:11] VITALS: BP 111/71; PULSE 72; RESP 18; O2SAT 94
--- NOTE | 2021-05-11 15:15 | W.ED.GENADLT ---
HPI - General Adult General: Chief complaint: General Medical Stated complaint: LOW BP Time Seen by Provider: 05/11/21 14:52 History of Present Illness: HPI narrative: Patient is a 85-year-old female with history of COPD, CVA, hypertension, diastolic heart failure who was seen and evaluated today by Dr. Hill Forbes in office when she was noted to have heart rate in the 30s. Patient had that point time reports shortness of breath and lightheadedness. Patient tells me that 10 days ago her since then, her family member has been try to prepare her medicine. She has been taking sotalol 160mg BID instead of 80mg BID. Per Dr. Forbes, , because of the heart rate, patient will need observation for overnight. Patient has no complaints of palpitation, lightheadedness, LOC, nausea/vomiting, diarrhea, shortness of breath, or other focal complaints at this time. Onset: unknown Duration:ongoing Location:home Severity:moderate Review of Systems Narrative: Constitutional: No fever, no chills. HEENT: No vision changes CV: No chest pain, no palpitations +bradycardia PULM: no cough, no dyspnea. GI: No abdominal pain, no N/V/D. : No dysuria MSKEL: No muscle pain SKIN: No new rashes, no lesions. NEURO: No headache, no focal weakness. +light-headedness HEME: No visible bruises PSYCH: Normal mood PFSH ED PFSH: Medical History Atherosclerotic heart disease of [place] coronary artery without angina pectoris Recent nuclear stress test, 03/03/2020 demonstrated reversible ischemia, small area, LAD distribution Benign hypertension -resume low dose BB and lasix; hold Amlodipine, Imdur Chronic diastolic heart failure Chronic thoracic aortic dissection Constipation -on bowel regimen, as noted above Controlled type 2 diabetes mellitus with hyperglycemia, without long-term current use of insulin COPD with emphysema -no acute exacerbation -CXR noted as well as RML nodule on CT CVA (cerebral vascular accident) Fatigue Generalized anxiety disorder Memory deficit Mixed hyperlipidemia Paroxysmal atrial fibrillation Patient has a history of easy bruising/spontaneous bleeding. So for this reason, she is not on any oral anticoagulation SOB (shortness of breath) Thoracic aortic aneurysm Visual distortion Vitamin B12 deficiency Vitamin D deficiency Surgical History History of appendectomy History of colonoscopy 2014 History of coronary artery bypass graft History of hysterectomy Family History Sister Cancer Lung disease Brother CAD (coronary artery disease) Denies family history of Diabetes Clotting disorder Dementia Chronic kidney disease (CKD) Suicide Anesthesia complication Bleeding disorder Stroke Social History Smoking and tobacco status: never smoked Second hand smoke exposure: No Smoking risk assessment/counseling performed?: No Alcohol intake: never Desire information about alcohol rehabilitation?: No Counseling given: No Desire information about substance/drug rehabilitation?: No Counseling given: No Caregiver/support person: No Lives independently: Yes Household members: spouse Marital status: History of recent travel: No Current gender identity: Female Female Reproductive History: Date of last menstrual period: 11/24/20 Physical Exam Narrative: EXAM NARRATIVE: Head: Atraumatic Eyes: PERRL, conjunctiva without injection ENT: Mucous membrane moist NECK: Supple, ROM intact LUNGS: LCTAB, no crackles/rhonchi CV: RRR ABDOMEN: Soft, nontender in all quadrants EXTREMITY: Normal ROM SKIN: No rash or erythema NEURO: Awake and alert, no focal motor deficits PSYCH: Normal mood and affect Course Vital Signs: Vital signs: Vital Signs Temperature 98.0 F 05/11/21 14:55 Pulse Rate 71 05/11/21 16:13 Respiratory Rate 18 05/11/21 16:13 Blood Pressure 123/73 05/11/21 16:13 Pulse Oximetry 97 05/11/21 16:13 MDM - General Adult MDM Narrative: Medical decision making narrative: Patient is an 85-year-old female with a history of proximal atrial fibrillation with diastolic heart changes on sortalol who presents the emergency room for evaluation of low heart rate and lightheadedness. On arrival, patient is hemodynamically stable. Heart rate appears to be normal. Patient is in NSR. Rest of exam within normal limit. I discussed case with Dr. Sanon who recommended inpatient admission for heart rate monitoring overnight. On reassessment, patient has not had any more bradycardic episodse. Blood pressure has appears to be stable. Patient is AAO x3, mentating without any issues. Troponin is noted to be 18 today (baseline of 13). Patient has new LIVIA (1.4) on CKD (baseline of 1.1). She will be admitted to hospital for observation overnight. Disposition: admission Shortly after patient was admitted, patient then elected to leave AMA. Patient counseled regarding risks of leaving including severe morbidity, brain , hypoxia, arrythmia, , chest pain, or any other unwanted consequences of leaving against medical advice today. Patient verbalizes understanding of the risks and still wishes to leave AMA. Signed AMA paperwork. Patient advised that patient is welcome to return at any time. She was instructed that patient may come back if symptoms continue to persist and that emergent adverse conditions have not fully been ruled out. Patient is A&Ox3 and has capacity and is of sound mind to make decisions. Lab Data: Labs: Lab Results 05/11/21 05/11/21 05/11/21 Range/Units 15:19 15:19 15:19 WBC 6.0 (4.0-10.0) 10^3/ uL RBC 4.45 (4.1-5.3) 10^6/u L Hgb 13.1 (11.5-15.3) g/dL Hct 40.9 (37.0-47.0) % MCV 91.9 (81-99) fl MCH 29.4 (28.0-34.0) pg MCHC 32.0 (30.0-36.0) g/dL RDW 15.4 H (12.1-15.1) % Plt Count 136 (130-400) 10^3/c mm MPV 12.0 H (7.4-10.4) fL Neut % (Auto) 67.6 % Lymph % (Auto) 18.7 % [place] % (Auto) 8.7 % Eos % (Auto) 2.2 % Baso % (Auto) 0.8 % Neut # (Auto) 4.05 (1.8-7.7) 10^3/u L Lymph # (Auto) 1.1 (0.8-4.8) 10^3/u L [place] # (Auto) 0.5 (0.2-0.9) 10^3/u L Eos # (Auto) 0.1 (0.0-0.8) 10^3/u L Baso # (Auto) 0.1 (0.0-0.1) 10^3/u L Nucleated RBC % (a uto) 0 % Nucleated RBCs # 0.0 /100WBC Sodium 135 L (136-145) mmol/L Potassium 4.4 (3.5-5.1) mmol/L Chloride 98 (98-107) mmol/L Carbon Dioxide 28 (22-29) mmol/L Anion Gap 13.4 (5-19) BUN 26 H (8-23) mg/dL Creatinine 1.4 H (0.5-0.9) mg/dL GFR Calculation Not Reportable Glucose 212 H (65-115) mg/dL Calculated Osmolal ity 291 (285-295) mOsm/k g Calcium 9.3 (8.5-10.5) mg/dL Total Bilirubin 0.5 (0.15-1.2) mg/dL AST 11 (0-32) U/L ALT 7 (0-33) U/L Alkaline Phosphata se 100 (35-105) IU/L Troponin T Baselin e 18 H (0-10) ng/L Total Protein 7.0 (6.6-8.7) g/dL Albumin 4.0 (3.5-5.2) g/dL Globulin 3.0 (1.3-4.6) g/dL Lipase 37 (13-60) U/L Imaging Data^: Other Imaging: Radiologist's impression: [address] [id number] ReportSigned Patient: Florence Mehta #: [id number]: 5Acct#:[id number]/Sex: 85 / FADM Date: 05/11/21Loc: ERRoom/Bed:Attending Dr: Ordering Provider/Ordering MD: Tung Babcock MD Date of Service: 05/11/21 Procedure(s): XR chest 1V portable [id number] Accession Number(s): [id number] Report Number: [id number] WS: [id number] Portable AP upright chest, 05/11/2021 Clinical Data: chest pain Comparison: PA and lateral chest, 08/09/2020. Findings: No nodules, masses or effusions are seen. The heart is normal. The pulmonary vascularity is not increased. No pneumonia or pneumothorax is seen. The aortic arch and descending thoracic aorta show calcification and dilatation. Midline sternotomy sutures are noted. The diaphragms are flattened. There is a monitor lead on the chest wall. XR/XR chest 1V portable [id number] Impression: 1. Atherosclerosis and dilated descending thoracic aorta. 2. Hyperinflation. Dictated By:Kari Murrieta MDSigned By:Kari Murrieta MDSigned Date/Time:05/11/21 1527DD/ 1525 Discharge Plan Discharge Patient Disposition: Admitted As Inpatient Clinical Impression: Acute kidney failure, Elevated troponin, Bradycardia Condition: Stable Coding Level of Care Code ED Loft Worker for Awais Hernandez
[2021-05-11 15:23] LABS: Basophils # 0.1 10^3/uL (0.0-0.1); Basophils % 0.8 %; Eosinophils # 0.1 10^3/uL (0.0-0.8); Eosinophils % 2.2 %; Hematocrit 40.9 % (37.0-47.0); Hemoglobin 13.1 g/dL (11.5-15.3); Lymphocytes # 1.1 10^3/uL (0.8-4.8); Lymphocytes % 18.7 %; Mean Corpuscular Hemoglobin 29.4 pg (28.0-34.0); Mean Corpuscular Volume 91.9 fl (81-99); Monocytes # 0.5 10^3/uL (0.2-0.9); Monocytes % 8.7 %; Neutrophils # 4.05 10^3/uL (1.8-7.7); Neutrophils % 67.6 %; Nucleated Red Blood Cells % 0 %; Platelet Count 136 10^3/cmm (130-400); Red Blood Count 4.45 10^6/uL (4.1-5.3); Red Cell Distribution Width 15.4 % (12.1-15.1)
[2021-05-11] MEDS: sodium chloride 0.9% 500 ML IV (15:46)
[2021-05-11 15:49] VITALS: BP 120/73; PULSE 72; RESP 16; O2SAT 96
[2021-05-11 15:49] LABS: Troponin(5th) Baseline 18 ng/L (0-10)
[2021-05-11 15:50] LABS: Alanine Aminotransferase 7 U/L (0-33); Alkaline Phosphatase 100 IU/L (35-105); Anion Gap 13.4 (5-19); Aspartate Amino Transferase 11 U/L (0-32); Blood Urea Nitrogen 26 mg/dL (8-23); Calcium 9.3 mg/dL (8.5-10.5); Carbon Dioxide 28 mmol/L (22-29); Chloride 98 mmol/L (98-107); Glucose 212 mg/dL (65-115); Lipase 37 U/L (13-60); Osmolality Calculated 291 mOsm/kg (285-295); Potassium 4.4 mmol/L (3.5-5.1); Sodium 135 mmol/L (136-145); Total Bilirubin 0.5 mg/dL (0.15-1.2)
[2021-05-11 16:13] VITALS: BP 123/73; PULSE 71; RESP 18; O2SAT 97
== END 2021-05-11 16:28 | disposition admitted as inpatient to this hospital (09) ==
PROVIDERS: Emergency Provider Emergency Medicine; PCP Nurse Practitioner
DX: R00.1 Bradycardia, unspecified (principal); R77.8 Other specified abnormalities of plasma proteins; N17.9 Acute kidney failure, unspecified; E11.9 Type 2 diabetes mellitus without complications; J43.9 Emphysema, unspecified; Z86.73 Personal history of transient ischemic attack (TIA), and cerebral infarction without residual deficits; E78.2 Mixed hyperlipidemia; Z95.1 Presence of aortocoronary bypass graft
CPT/HCPCS: 71045; 80053; 83690; 84484; 85025; 93005; 96360; 99283; J7040

== ENCOUNTER → 2021-08-03 11:05 | Outpatient (BNVA) | payer MEDICARE, OTHER, SELFPAY | PROVIDERS: PCP Nurse Practitioner; Visit Provider Family Medicine | DX: E11.65 Type 2 diabetes mellitus with hyperglycemia (principal) | CPT/HCPCS: 80053; 83036 ==

== ENCOUNTER → 2021-11-20 15:35 | Outpatient (BNVA) | payer MEDICARE, OTHER, SELFPAY | PROVIDERS: PCP Nurse Practitioner Family; Visit Provider Nurse Practitioner Family | DX: R53.83 Other fatigue (principal); I48.0 Paroxysmal atrial fibrillation; Z12.11 Encounter for screening for malignant neoplasm of colon; K92.1 Melena | CPT/HCPCS: 80053; 80061; 82270; 83540; 84443; 85025 ==

== ENCOUNTER → 2021-12-05 11:08 | Outpatient (BNVA) | payer MEDICARE, OTHER, SELFPAY | PROVIDERS: PCP Nurse Practitioner Family; Visit Provider Internal Medicine Cardiovascular Disease | DX: R06.02 Shortness of breath (principal); I50.33 Acute on chronic diastolic (congestive) heart failure; E53.8 Deficiency of other specified B group vitamins; I25.10 Atherosclerotic heart disease of native coronary artery without angina pectoris; I50.32 Chronic diastolic (congestive) heart failure | CPT/HCPCS: 80048; 82607; 83880; 99214 ==

== ENCOUNTER 2021-12-28 12:57 | Outpatient (CLI) | payer MEDICARE, OTHER, SELFPAY ==
[2021-12-28] MEDS: iohexol 350 mg/mL 100 mL Btl IV (13:06)
--- NOTE | 2021-12-28 13:30 | CT_ITS ---
WS: [id number] CTA CHEST ABDOMEN AND PELVIS TECHNIQUE: Noncontrast plus contrast enhanced CTA of the chest, abdomen, and pelvis with coronal and sagittal reformatted images and additional MIP Images. CLINICAL INFORMATION: Chronic dissection/ Abdominal pain COMPARISON: CTA September 11, 2019 DLP: 2134.[address] scans at [facility] use at least one of these dose optimization techniques: automated e xposure control; mA and/or kV adjustment per patient size (includes targeted exams where dose is matc hed to clinical indication); or iterative reconstruction. FINDINGS: Again seen is the extensive aortic dissection originating distal to the takeoff of the subclavian art jese. Stable ascending thoracic aortic aneurysm measuring 4.9 cm is unchanged. Prior sternotomy with C ABG. Stable nodularity thyroid isthmus. Great vessel origins are patent. Advanced calcified atheromat ous disease. Aortic dissection extends into the descending thoracic aorta, abdominal aorta and common iliac arteries bilaterally. Compared to previous there has been interval partial thrombosis of the f alse lumen with decreased opacification of the false lumen. Celiac and SMA originate from the true [place] men and are patent. LEFT renal artery originates from the true lumen. RIGHT renal artery originates f rom the false lumen with decreased perfusion compared to previous. Decreased RIGHT renal parenchymal enhancement compared to the LEFT. Inferior mesenteric artery originates from the true lumen and is pa tent. Common iliac arteries are patent. External and internal iliac arteries are patent. Densely calcified iliac arteries. 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 Normal liver. Normal spleen. Normal GE junction. Adrenal glands are normal. No hydronephrosis in eith er kidney. Fatty atrophy of the pancreas. Urine distended bladder. Sigmoid diverticulosis. No evidence of acute diverticulitis. Multiple chroni c compression fractures T11, L2, L3, and L4 appears stable. Small RIGHT renal cyst. CT/CT angio chest abdomen pelvis IMPRESSION: 1. Stable type III aortic dissection extending from the thoracic aorta distal to the subclavian origin into the abdominal aorta and common iliac arteries is unchanged. 2. Stable aneurysmal dilatation of the ascending thoracic aorta measuring 4.8 cm. 3. Advanced calcified atherosclerosis involving the thoracic aorta and mesente nely arteries. Coronary calcification. 4. Partial thrombosis with decreased opacification of the false lumen compared to previous. RIGHT renal artery originates from the false lumen with decreased opacification compared to previous. Decreased RIGHT renal parenchymal enhancem ent. Recommend correlation with renal function. 5. Celiac, SMA and LEFT renal artery originate from the true lumen. Dense mese nteric artery calcification. 6. No other significant changes compared to previous.
== END 2021-12-28 12:58 | disposition home or self-care (01) ==
LOC: RAD 13:00
PROVIDERS: PCP Nurse Practitioner Family; Visit Provider Internal Medicine Cardiovascular Disease
DX: I71.01 Dissection of thoracic aorta (principal)
CPT/HCPCS: 71275; 74174

== ENCOUNTER → 2022-01-24 11:38 | Outpatient (BNVA) | payer MEDICARE, OTHER, SELFPAY | PROVIDERS: PCP Nurse Practitioner Family; Visit Provider Nurse Practitioner Family | DX: E11.65 Type 2 diabetes mellitus with hyperglycemia (principal); I48.0 Paroxysmal atrial fibrillation | CPT/HCPCS: 83036 ==

== ENCOUNTER 2022-04-21 13:49 | Inpatient (IN) | payer MEDICARE, OTHER, SELFPAY ==
[2022-04-21] VITALS (8 sets, daily range): BP systolic 103–139; BP diastolic 61–94; PULSE 74–133; RESP 18–29; TEMP 36.4–36.8; O2SAT 94–98; BMI 23.5
--- NOTE | 2022-04-21 14:37 | ED_ITS ---
HPI - Arrhythmia/Palpitations General: Chief Complaint: Arrhythmia/Palpitations Stated Complaint: irregular hr Time Seen by Provider: 04/21/22 14:37 History of Present Illness: Ms. Mehta is an 86-year-old lady with significant past medical history of known paroxysmal atrial fibrillation, diastolic heart failure, CAD, diabetes, hyperlipidemia who presents to the emergency department due to chest discomfort and generalized symptoms. She reports a few days ago subacute onset of racing heart. This has persisted intermittently with heart rates in the 130s and 140s. She notes associated chest discomfort and shortness of breath. Chest discomfort is in the middle of her chest and feels like a pain. Today symptoms were worse and when she checked her heart rate it was 150. She denies missing medication and has not had recently changes in medication. Overall intensity symptoms is moderate. No other specific changes in health, exacerbating, or alleviating factors identifie d. Onset (ago): day(s) Duration: intermittent Severity: moderate Arrhythmia history: atrial fibrillation Associated symptoms: Reports other Review of Systems General: Reports: 10 or more systems reviewed and unremarkable except in HPI and below PFSH ED PFSH: Medical History Atherosclerotic heart disease of [place] coronary artery without angina pectoris Recent nuclear stress test, 03/03/2020 demonstrated reversible ischemia, small area, LAD distribution Benign hypertension -resume low dose BB and lasix; hold Amlodipine, Imdur Chronic diastolic heart failure Chronic thoracic aortic dissection Constipation -on bowel regimen, as noted above Controlled type 2 diabetes mellitus with hyperglycemia, without long-term current use of insulin COPD with emphysema -no acute exacerbation -CXR noted as well as RML nodule on CT CVA (cerebral vascular accident) Fatigue Generalized anxiety disorder Memory deficit Mixed hyperlipidemia Paroxysmal atrial fibrillation Patient has a history of easy bruising/spontaneous bleeding. So for this reason, she is not on any oral anticoagulation SOB (shortness of breath) Thoracic aortic aneurysm Visual distortion Vitamin B12 deficiency Vitamin D deficiency Surgical History History of appendectomy History of colonoscopy 2014 History of coronary artery bypass graft History of hysterectomy Hx of cataract extraction Family History Sister Cancer Lung disease Brother CAD (coronary artery disease) Denies family history of Diabetes Clotting disorder Dementia Chronic kidney disease (CKD) Suicide Anesthesia complication Bleeding disorder Stroke Social History Smoking and tobacco status: never smoked Second hand smoke exposure: No Smoking risk assessment/counseling performed?: No Alcohol intake: never Desire information about alcohol rehabilitation?: No Counseling given: No Desire information about substance/drug rehabilitation?: No Counseling given: No Caregiver/support person: No Lives independently: Yes Household members: spouse Marital status: History of recent travel: No Current gender identity: Female Female Reproductive History: Date of last menstrual period: 11/24/20 Physical Exam Const: COMMON NORMALS: alert GENERAL APPEARANCE: cooperative and well developed HENMT: COMMON NORMALS: normocephalic and atraumatic HEAD & SCALP: normocephalic and atraumatic Eye: COMMON NORMALS: conjunctivae normal CONJUNCTIVA: Yes conjunctivae normal SCLERA: sclerae normal Neck/C-Spine: COMMON NORMALS: supple GENERAL: Yes trachea midline Resp: COMMON NORMALS: normal respiratory effort EFFORT & INSPECTION: Yes able to speak in complete sentences Cardio: RATE: tachycardic RHYTHM: abnormal rhythm irregularly irregular GI: COMMON NORMALS: Soft to palpation PALPATION: Yes Soft to palpation and No Tenderness to palpation present (GI) PERCUSSION: normal to percussion Extremity: GENERAL: Yes normal exam except as noted and No edema Neuro: COMMON NORMALS: moves all extremities SENSORIUM/ORIENTATION: Yes alert and No Orientation impaired Psych: COMMON NORMALS: mental status grossly normal and Normal thought process present THOUGHT PROCESS: Normal thought process present Course ED course: - Patient was seen and evaluated by me at bedside - Patient placed on cardiac monitors, IV access obtained - Initial evaluation notable for exam as above. - Labs and xrays personally interpreted by me. EKG is notable for atrial fibrillation with rapid ventricular response. No STEMI. -Push doses of metoprolol attempted for rate control - Labs notable for no leukocytosis, normal hemoglobin. Thrombocytopenia of uncertain etiology. Metabolic panel with mildly elevated creatinine, satisfactory potassium and magnesium. Delta troponin negative. - Imaging notable for no lobar consolidation or pneumothorax. Elevated D-dimer and therefore CTA ordered. Ascending and descending thoracic aortic aneurysms without evidence of rupture, chronic dissection of the descending thoracic aorta appears similar - Upon serial reexamination after treatment the patient was not significantly improved with right right at which point Cardizem bolus and drip ordered - Based on patient history, evaluation, and testing as interpreted the most likely cause of the patient's condition is atrial fibrillation with rapid ventricular response which is symptomatic - The results of ED evaluation were discussed with the patient including plan for admission due to requirement for level of care not available if discharged to prevent significant worsening/deterioration. - Admitting service was contacted and Dr Martinez with the hospitalist service agreed to admit the patient - Patient was admitted without further deterioration or significant events. Note: Click bubbles or prepopulated mirza in note writing are used for assistance with data collection and billing and are inherently more limited than narrative and other text portions of this note. Please use narrative for additional clin ical history and defer to narrative/free test for any case of contradictory information. If information appears in only free text or click bubble it should be considered present or absent as reported. Please contact note communications writer for clarifications of clinical information or contradictory information. MDM is a brief summary, contradictory or erroneous seeming information should be clarified and full note should be reviewed. Vital Signs: Vital signs: Vital Signs Temperature 98.4 F 04/26/22 12:47 Pulse Rate 76 04/26/22 12:47 Respiratory Rate 18 04/26/22 12:47 Blood Pressure 134/66 04/26/22 12:47 Pulse Oximetry 95 04/26/22 12:47 Oxygen Delivery Me thod 04/26/22 12:00 Oxygen Flow Rate 2 04/25/22 08:00 MDM - Arrhythmia/Palpitations Medical Decision Making 86-year-old lady presenting with symptomatic A. fib with RVR. Attempted push doses of rate control without success and patient subsequently started on Ca rdizem drip. Admitted for further management. Medical Records I reviewed the patient's medical records. Lab Data I reviewed the patient's lab results. : 04/25/22 03:56 04/26/22 05:14 Radiology Impressions Chest X-Ray 04/21/22 14:38 IMPRESSION: 1. Possible mild cardiomegaly.Heart size not optimally evaluated with a single AP view of the chest. 2. Thoracic aorta is tortuous and contains calcified plaque. Chest CTA 04/21/22 16:02 IMPRESSION: 1. Ascending thoracic aorta is aneurysmal measuring 5.0 cm in the transverse dimension. Descending thoracic aorta is aneurysmal measuring 4.9 cm in the transverse dimension. No evidence for rupture. In general, aortic diameters of 5.[address] patients at high risk for rupture and should be considered for intervention. If connective tissue diseases such as Marfan or Taniya-Danlos disease is known, then a diameter of 5 cm prompts consideration of prophylactic aortic root replacement. 2. 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 3. Multivessel atherosclerotic disease which involves the coronary arteries. 4. No evidence for pulmonary embolus. Laboratory Results WBC 7.5 10^3/uL (4.0-10.0) 04/22/22 05:27 RBC 4.90 10^6/uL (4.1-5.3) 04/22/22 05:27 Hgb 14.1 g/dL (11.5-15.3) 04/22/22 05:27 Hct 45.7 % (37.0-47.0) 04/22/22 05:27 MCV 93.3 fl (81-99) 04/22/22 05:27 MCH 28.8 pg (28.0-34.0) 04/22/22 05:27 MCHC 30.9 g/dL (30.0-36.0) 04/22/22 05:27 RDW 15.8 % (12.1-15.1) H 04/22/22 05:27 Plt Count 125 10^3/cmm (130-400) L 04/22/22 05:27 MPV 11.1 fL (7.4-10.4) H 04/22/22 05:27 Neut % (Auto) 63.3 % 04/22/22 05:27 Lymph % (Auto) 20.9 % 04/22/22 05:27 [place] % (Auto) 8.9 % 04/22/22 05:27 Eos % (Auto) 2.9 % 04/22/22 05:27 Baso % (Auto) 0.9 % 04/22/22 05:27 Neut # (Auto) 4.74 10^3/uL (1.8-7.7) 04/22/22 05:27 Lymph # (Auto) 1.6 10^3/uL (0.8-4.8) 04/22/22 05:27 [place] # (Auto) 0.7 10^3/uL (0.2-0.9) 04/22/22 05:27 Eos # (Auto) 0.2 10^3/uL (0.0-0.8) 04/22/22 05:27 Baso # (Auto) 0.1 10^3/uL (0.0-0.1) 04/22/22 05:27 Nucleated RBC % (auto) 0 % 04/22/22 05:27 Nucleated RBCs # 0.0 /100WBC 04/22/22 05:27 PT 14.00 SECONDS (12.1-14.9) 04/21/22 15:33 INR 1.05 (0.8-1.2) 04/21/22 15:33 APTT 28.2 SECONDS (23.9-36.7) 04/21/22 15:33 D-Dimer 2.26 ug/mIFEU (0-0.59) H 04/21/22 15:33 Sodium 142 mmol/L (136-145) 04/22/22 05:27 Potassium 4.4 mmol/L (3.5-5.1) 04/22/22 05:27 Chloride 105 mmol/L (98-107) 04/22/22 05:27 Carbon Dioxide 29 mmol/L (22-29) 04/22/22 05:27 Anion Gap 12.4 (5-19) 04/22/22 05:27 BUN 20 mg/dL (8-23) 04/22/22 05:27 Creatinine 0.9 mg/dL (0.5-0.9) 04/22/22 05:27 GFR Calculation Not Reportable 04/22/22 05:27 Glucose 104 mg/dL (65-115) 04/22/22 05:27 Calculated Osmolality 297 mOsm/kg (285-295) H 04/22/22 05:27 Calcium 9.7 mg/dL (8.5-10.5) 04/22/22 05:27 Magnesium 2.1 mg/dL (1.7-2.3) 04/21/22 14:46 Total Bilirubin 0.5 mg/dL (0.15-1.2) 04/21/22 14:46 AST 11 U/L (0-32) 04/21/22 14:46 ALT 9 U/L (0-33) 04/21/22 14:46 Alkaline Phosphatase 97 U/L (35-105) 04/21/22 14:46 Troponin T Baseline 17 ng/L (0-10) H 04/21/22 14:46 Troponin T 120 Minute 13.73 ng/L (0-10) H 04/21/22 16:44 Delta Troponin T -3.27 ABS# (0-10) L 04/21/22 16:44 Troponin T Hi Sens 6Hr 14.50 ng/L (0-10) H 04/21/22 20:40 Troponin T Hi Sens 6Hr Delta -2.50 ng/L (0-12) L 04/21/22 20:40 NT-Pro-B Natriuret Pep 558 pg/mL (0-450) H 04/21/22 14:46 Total Protein 7.4 g/dL (6.6-8.7) 04/21/22 14:46 Albumin 4.2 g/dL (3.5-5.2) 04/21/22 14:46 Globulin 3.2 g/dL (1.3-4.6) 04/21/22 14:46 Lipase 45 U/L (13-60) 04/21/22 14:46 TSH 3.42 uIU/mL (0.27-4.20) 04/21/22 14:46 Critical Care Time Critical Care Time: Attestation: Due to a high probability of clinically significant, possibly life threatening deterioration, the patient required my highest level of attention and preparedness to intervene emergently and I personally spent this critical care time directly and personally managing the patient. This critical care time included obtaining a history; examining the patient; pulse oximetry; ordering and review of laboratory and imaging studies; arranging urgent treatment with development of a management plan; evaluation of patient's response to treatment; frequent reassessment; and, discussions with other providers as applicable. It was exclusive of separately billable procedures. Primary system involved is cardiopulmonary Discharge Plan Discharge Patient Disposition: Placed in Observation Admit Provider: Silvino Arreguin Clinical Impression: Paroxysmal atrial fibrillation, Atrial fibrillation with RVR Discharge Diet: Cardiac Discharge Activity: Resume usual activity and Increase activity as tolerated Coding Level of Care Code ED Die Cutter Operator for Chg Fwd Exam Comprehensive
--- NOTE | 2022-04-21 14:38 | XRR_ITS ---
PROCEDURE INFORMATION: Exam: XR Chest Exam date and time: 04/21/2022 2:54 PM Age: 86 years old Clinical indication: Other: Afib; Prior surgery; Surgery date: 6+ months; Surgery type: Open heart x25 yrs; Additional info: Afib rvr TECHNIQUE: Imaging protocol: Radiologic exam of the chest. Views: 1 view. COMPARISON: CT angio chest abdomen pelvis 12/28/2021 1:18 PM FINDINGS: Lungs: Unremarkable. No consolidation. Pleural spaces: Unremarkable. No pleural effusion. No pneumothorax. Heart/Mediastinum: Possible mild cardiomegaly. Vasculature: Thoracic aorta is tortuous and contains calcified plaque. Bones/joints: There are posterior sternotomy changes and postoperative changes overlying the mediastinum. XR/XR chest 1V portable [id number] IMPRESSION: 1. Possible mild cardiomegaly.Heart size not optimally evaluated with a single AP view of the chest. 2. Thoracic aorta is tortuous and contains calcified plaque.
[2022-04-21] MEDS: metoprolol tartrate 1 mg/1 mL SDV 5 mL 5 MG IVP ×2 (14:49→15:36)
[2022-04-21 14:59] LABS: Basophils # 0.1 10^3/uL (0.0-0.1); Basophils % 0.6 %; Eosinophils # 0.2 10^3/uL (0.0-0.8); Eosinophils % 2.3 %; Hematocrit 42.3 % (37.0-47.0); Hemoglobin 13.3 g/dL (11.5-15.3); Lymphocytes # 0.9 10^3/uL (0.8-4.8); Lymphocytes % 11.4 %; Mean Corpuscular HGB Conc 31.4 g/dL (30.0-36.0); Mean Corpuscular Hemoglobin 28.8 pg (28.0-34.0); Mean Corpuscular Volume 91.6 fl (81-99); Mean Platelet Volume 11.4 fL (7.4-10.4); Monocytes # 0.5 10^3/uL (0.2-0.9); Monocytes % 6.4 %; Neutrophils # 6.32 10^3/uL (1.8-7.7); Neutrophils % 77.3 %; Nucleated Red Blood Cells % 0 %; Platelet Count 121 10^3/cmm (130-400); Red Blood Count 4.62 10^6/uL (4.1-5.3); Red Cell Distribution Width 16.2 % (12.1-15.1); White Blood Count 8.2 10^3/uL (4.0-10.0)
--- NOTE | 2022-04-21 15:03 | ECG_ITS ---
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 Measurements Intervals [place] Rate: 117 P: [place]: QRS: 72 QRSD: 93 T: 16 QT: 327 QTc: 456 Interpretive Statements ATRIAL FIBRILLATION WITH RAPID VENTRICULAR RESPONSE LOW QRS VOLTAGE IN PRECORDIAL LEADS [QRS DEFLECTION < 1.0 mV IN CHEST LEADS] POSSIBLE ANTERIOR MYOCARDIAL INFARCTION , PROBABLY OLD [30 ms Q WAVE IN V3/V4, OR R < 0.2 mV IN V4] ABNORMAL RHYTHM ECG Compared to ECG 05/11/2021 14:59:21 Low QRS voltage now present Sinus rhythm no longer present Myocardial infarct finding still present Electronically Signed On 04-23-2022 8:02:31 CDT by Esha Martin M.D. [id number]
[2022-04-21 15:24] LABS: Troponin(5th) Baseline 17 ng/L (0-10)
[2022-04-21 15:38] LABS: Alanine Aminotransferase 9 U/L (0-33); Albumin Level 4.2 g/dL (3.5-5.2); Alkaline Phosphatase 97 U/L (35-105); Anion Gap 20.3 (5-19); Aspartate Amino Transferase 11 U/L (0-32); Blood Urea Nitrogen 20 mg/dL (8-23); Calcium 9.7 mg/dL (8.5-10.5); Carbon Dioxide 24 mmol/L (22-29); Chloride 97 mmol/L (98-107); Globulin 3.2 g/dL (1.3-4.6); Glucose 327 mg/dL (65-115); Lipase 45 U/L (13-60); Magnesium 2.1 mg/dL (1.7-2.3); NT Pro B Type Natriuretic Pept 558 pg/mL (0-450); Osmolality Calculated 299 mOsm/kg (285-295); Potassium 4.3 mmol/L (3.5-5.1); Sodium 137 mmol/L (136-145); Thyroid Stimulating Hormone 3.42 uIU/mL (0.27-4.20); Total Bilirubin 0.5 mg/dL (0.15-1.2); Total Protein 7.4 g/dL (6.6-8.7)
[2022-04-21 15:51] LABS: INR 1.05 (0.8-1.2); Partial Thromboplastin Time 28.2 SECONDS (23.9-36.7)
[2022-04-21 15:54] LABS: D Dimer 2.26 ug/mIFEU (0-0.59)
--- NOTE | 2022-04-21 16:02 | CTR_ITS ---
PROCEDURE INFORMATION: Exam: CTA Chest With Contrast Exam date and time: 04/21/2022 4:21 PM Age: 86 years old Clinical indication: Shortness of breath and other: A. Fib rvr, elevated d-dimer; Additional info: Chest discomfort, SOB, a. Fib rvr, elevated d-dimer TECHNIQUE: Imaging protocol: Computed tomographic angiography of the chest with contrast. 3D rendering (Not supervised by radiologist): MIP and/or 3D reconstructed images were created by the technologist. Radiation optimization: All CT scans at this facility use at least one of these dose optimization techniques: automated exposure control; mA and/or kV adjustment per patient size (includes targeted exams where dose is matched to clinical indication); or iterative reconstruction. Contrast material: OMNI 350; Contrast volume: 95 ml; Contrast route: INTRAVENOUS (IV); COMPARISON: CT angio chest abdomen pelvis 12/28/2021 1:18 PM RADIATION DOSE METRICS: Total DLP (mGy-cm): 345.37 FINDINGS: Pulmonary arteries: Normal. No pulmonary emboli. Aorta: Ascending thoracic aorta is aneurysmal measuring 5.0 cm in the transverse dimension. No evidence for rupture. Descending thoracic aorta is aneurysmal measuring 4.9 cm in the transverse dimension. No evidence for rupture. 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 Lungs: There are pulmonary parenchymal calcifications consistent with remote granulomatous organism exposure. Pleural spaces: Unremarkable. No pneumothorax. No pleural effusion. Heart: Multivessel atherosclerotic disease which involves the coronary arteries. Lymph nodes: Unremarkable. No enlarged lymph nodes. Bones/joints: There are post sternotomy changes and postoperative changes in the anterior mediastinum. Soft tissues: Unremarkable. CT/CT angio chest PE protcl [id number] IMPRESSION: 1. Ascending thoracic aorta is aneurysmal measuring 5.0 cm in the transverse dimension. Descending thoracic aorta is aneurysmal measuring 4.9 cm in the transverse dimension. No evidence for rupture. In general, aortic diameters of 5.[address] patients at high risk for rupture and should be considered for intervention. If connective tissue diseases such as Marfan or Taniya-Danlos disease is known, then a diameter of 5 cm prompts consideration of prophylactic aortic root replacement. 2. 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 3. Multivessel atherosclerotic disease which involves the coronary arteries. 4. No evidence for pulmonary embolus.
[2022-04-21] MEDS: iohexol 350 mg/mL 100 mL Btl IV (16:24)
--- NOTE | 2022-04-21 16:38 | ECG_ITS ---
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 Measurements Intervals [place] Rate: 120 P: [place]: QRS: -10 QRSD: 89 T: 47 QT: 319 QTc: 452 Interpretive Statements ATRIAL FIBRILLATION WITH RAPID VENTRICULAR RESPONSE LOW QRS VOLTAGE IN PRECORDIAL LEADS [QRS DEFLECTION < 1.0 mV IN CHEST LEADS] POSSIBLE ANTERIOR MYOCARDIAL INFARCTION , PROBABLY OLD [30 ms Q WAVE IN V3/V4, OR R < 0.2 mV IN V4] INFERIOR MYOCARDIAL INFARCTION , PROBABLY OLD [40+ ms Q WAVE AND/OR ST/T ABNORMALITY IN II/aVF] Compared to ECG 04/21/2022 15:03:35 No significant changes Electronically Signed On 04-23-2022 8:11:34 CDT by Esha Martin M.D. [id number]
[2022-04-21] MEDS: dilTIAZem 5 mg/mL SDV 5 mL 15 MG IVP (17:07)
[2022-04-21 17:13] LABS: Troponin 5 2HR 13.73 ng/L (0-10)
[2022-04-21 17:15] LABS: Troponin 5 2HR Delta -3.27 ABS# (0-10)
--- NOTE | 2022-04-21 19:28 | P.HP_ITS ---
Providers/Chief Complaint Admitting Physician: Silvino Arreguin Primary Care Provider: ALFONSO Schmitt Chief Complaint: irregular hr History of Present Illness Pleasant 86-year-old lady presented to ER due to her heart rate for the past 3 days being elevated, she states at home was running close to 150s. 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 She is on sotalol at home. States did not miss any of the medications. Otherwise has been in baseline state of health. Did not respond to initial attempts at rate control with metoprolol pushes. She was started on Cardizem drip. Review of Systems Const: Denies: fever(s), chills, body aches or malaise Eyes: Denies: change in vision, eye discomfort or eye redness ENMT: Denies: throat pain, oral sores or ear or mastoid pain Card: Reports: chest pain; Denies: edema, pre-syncope or dyspnea on exertion Resp: Denies: dyspnea, productive cough, change in phlegm color or hemoptysis GI: Denies: abdominal pain, nausea, vomiting, diarrhea, constipation, hematochezia or melena : Denies: flank pain, urinary frequency or hematuria Musc: Denies: back pain, joint swelling or joint redness Skin/Breast: Denies: rash or new lesions Neuro: Denies: headache(s), numbness in extremities, weakness in extremities, dizziness, confusion or seizure-like activity Endo: Denies: polyuria or polydipsia Addy/Lymph: Denies: easy bleeding or tender lymph nodes All/Imm: Denies: urticaria or tongue swelling Medications/Allergies Home Medications Medication Instructions Recorded Confirmed Last Taken Type blood sugar diagnostic #10 ea 09/17/19 04/21/22 Unknown History lancets 30 gauge #25 ea 09/17/19 04/21/22 Unknown History nitroglycerin 0.4 mg sublingual 0.4 mg sublingual Q5M PRN chest 12/16/1904/21 Unknown Rx tablet pain #1 pkg ascorbate calcium (vitamin C) 500 500 mg PO DAILY 02/10/20 04/21/22 04/21/22 History mg tablet [place] 450 mg capsule 450 mg PO DAILY 02/10/20 04/21/22 04/21/22 History losartan 25 mg tablet 25 mg PO DAILY #90 tabs 04/28/21 04/21/22 04/21/22 Rx magnesium oxide 400 mg (241.3 mg 400 mg PO DAILY #90 tabs 05/03/21 04/21/22 04/21/22 Rx magnesium) tablet omega-3 fatty acids 1,000 mg 2,000 mg PO BID #360 caps 05/03/21 04/21/22 2 Rx capsule (Fish Oil Concentrate) ferrous gluconate 324 mg (38 mg 324 mg PO EVERY OTHER DAY 05/11/21 04/21/22 04/20/22 History iron) tablet sotalol 80 mg tablet 80 mg PO BID 05/11/21 04/21/22 04/21/22 History amlodipine 10 mg tablet 10 mg PO DAILY #90 tabs 07/11/21 04/21/22 04/21/22 Rx syringe with needle 3 mL 22 gauge #1 ea 08/03/21 04/21/22 Unknown Rx x 1 sitagliptin 100 mg tablet (Januvia) 100 mg PO QDAY #90 tabs 10/10/21 04/21/22 04/21/22 Rx potassium chloride 10 mEq 20 meq PO DIRECTED #180 tabs 12/05/21 04/21/22 04/21/22 Rx tablet,extended release(part/cryst) glimepiride 4 mg tablet 4 mg PO QAM #90 tabs 01/24/22 04/21/22 04/21/22 Rx isosorbide mononitrate 120 mg 120 mg PO DAILY #90 tabs 01/24/22 04/21/22 04/21/22 Rx tablet,extended release 24 hr sertraline 50 mg tablet 100 mg PO DAILY #90 tabs 01/24/22 04/21/22 04/21/22 Rx clopidogrel 75 mg tablet 75 mg PO DAILY #90 tabs 04/04/22 04/21/22 04/21/22 Rx cyanocobalamin (vitamin B-12) 1,000 mcg IM Q30D 04/21/22 04/21/22 Unknown History 1,000 mcg/mL injection solution dapagliflozin 10 mg tablet 10 mg PO DAILY 04/21/22 04/21/22 04/21/22 History (Farxiga) furosemide 40 mg tablet (Lasix) See Rx Instructions .Route .COMPLEX 04/21/22 04/21/22 04/21/22 History metformin 500 mg tablet 500 mg PO QPM 04/21/22 04/21/22 04/20/22 History Allergies Allergy/AdvReac Type Severity Reaction Status Date / Time atorvastatin [From Lipitor] Allergy Unknown Unknown Verified 01/24/22 11:18 butorphanol Allergy Unknown Goes crazy Verified 01/24/22 11:18 ezetimibe [Zetia] Allergy Unknown Unknown Verified 01/24/22 11:18 piroxicam [From Feldene] Allergy Unknown Unknown Verified 01/24/22 11:18 simvastatin [From Zocor] Allergy Unknown Unknown Verified 01/24/22 11:18 Sulfa (Sulfonamide Allergy Unknown Unknown Verified 01/24/22 11:18 Antibiotics) PFSH Acute PFSH: Medical History Atherosclerotic heart disease of [place] coronary artery without angina pectoris Recent nuclear stress test, 03/03/2020 demonstrated reversible ischemia, small area, LAD distribution Benign hypertension -resume low dose BB and lasix; hold Amlodipine, Imdur Chronic diastolic heart failure Chronic thoracic aortic dissection Constipation -on bowel regimen, as noted above Controlled type 2 diabetes mellitus with hyperglycemia, without long-term current use of insulin COPD with emphysema -no acute exacerbation -CXR noted as well as RML nodule on CT CVA (cerebral vascular accident) Fatigue Generalized anxiety disorder Memory deficit Mixed hyperlipidemia Paroxysmal atrial fibrillation Patient has a history of easy bruising/spontaneous bleeding. So for this reason, she is not on any oral anticoagulation SOB (shortness of breath) Thoracic aortic aneurysm Visual distortion Vitamin B12 deficiency Vitamin D deficiency Surgical History History of appendectomy History of colonoscopy 2014 History of coronary artery bypass graft History of hysterectomy Family History Sister Cancer Lung disease Brother CAD (coronary artery disease) Denies family history of Diabetes Clotting disorder Dementia Chronic kidney disease (CKD) Suicide Anesthesia complication Bleeding disorder Stroke Social History Smoking and tobacco status: never smoked Second hand smoke exposure: No Smoking risk assessment/counseling performed?: No Alcohol intake: never Desire information about alcohol rehabilitation?: No Counseling given: No Desire information about substance/drug rehabilitation?: No Counseling given: No Caregiver/support person: No Lives independently: Yes Household members: spouse Marital status: History of recent travel: No Current gender identity: Female Female Reproductive History: Date of last menstrual period: 11/24/20 Vitals/I&O/Wt Last Vital Signs Temp 97.6 F 04/21/22 14:10 Pulse 98 04/21/22 17:52 Resp 26 H 04/21/22 17:52 BP 127/77 04/21/22 17:52 Pulse Ox 96 04/21/22 17:52 O2 Del Method 04/21/22 17:52 Weight last 48 hrs Weight 68.039 kg Physical Exam Const: COMMON NORMALS: patient oriented x3 and alert GENERAL APPEARANCE: cooperative ORIENTATION/CONSCIOUSNESS: Yes awake HENMT: COMMON NORMALS: oropharynx normal Neck/C-Spine: COMMON NORMALS: no JVD Resp: COMMON NORMALS: normal respiratory effort and clear to auscultation bilaterally AUSCULTATION: clear to auscultation bilaterally Cardio: COMMON NORMALS: no JVD, regular rhythm, S1 normal heart sound present, S2 normal heart sound present and No murmurs present (Cardio) RATE: tachyca rdic RHYTHM: abnormal rhythm irregularly irregular HEART SOUNDS: S1 normal heart sound present and S2 normal heart sound present GI: COMMON NORMALS: Normal to inspection, nondistended, normoactive bowel sounds present, Soft to palpation and non-tender PALPATION: Yes Soft to palpation Extremity: COMMON NORMALS: no joint enlargement and no pedal edema Neuro: COMMON NORMALS: patient oriented x3 and moves all extremities SENSORIUM/ORIENTATION: Yes alert Skin: COMMON NORMALS: no rashes or lesions noted GENERAL SKIN EXAM: no rashes or lesions noted Data : 04/21/22 14:46 04/21/22 14:46 A&P Assessment and plan (1) Atrial fibrillation with RVR: Not on anticoagulation. Not entirely clear reason why, I see listed easy bruising. Discussing with her her daughter no history of life-threatening bleed, but does have chronic type II aortic dissection, as well as ascending aortic aneurysm. Not sure if this contributed to decision to discontinue anticoagulation in the past. On sotalol at home. She is concerned about elevating risk of stroke with going up on the dose, so we will not increase dose for now. Continue Cardizem drip. Continue home dose sotalol as per discussion with cardiology. Appreciate additional recommendations. Seems was started on sotalol in the past due to symptoms of fatigue associated with atrial fibrillation from what she can remember. No obvious trigger. Will assess TTE. Status: Acute (2) Chest pain: So far has resolved with rate control. Complete troponin EKG series. D-dimer is normal, no PE on CTA. Denies any tearing pain radiating to the back, no abdominal pain. Aortic aneurysm as well as chronic dissection appears similar to prior. Monitor on telemetry. Status: Acute (3) Elevated d-dimer: Suspect secondary to chronic dissection. No recent values, in the past very elevated compared to current with suspect secondary to dissection at the time. Status: Acute Plan Current diastolic CHF, not in exacerbation HTN DM2 COPD History of CVA ROBERTA HLD Thoracic aortic aneurysm Chronic aortic dissection Other current problems Attestations Medical Necessity Statement*: Place in a patient for assessment of management of atrial fibrillation with RVR, on sotalol, chest pain, not on anticoagulation. Coding Level of Care Code Acute Model Builder Display for Awais Hernandez Diagnoses Atrial fibrillation with RVR I48.91 Chest pain R07.9 Elevated d-dimer R79.89
--- NOTE | 2022-04-21 20:08 | USCV_ITS ---
Florence Mehta Age: 86 Gender: F : 1935 Exam Date: 04/21/2022 22:06 Ordering Phys: Silvino Arreguin MD Technologist: Prosper Sanders [place] [facility] [place]: Chest pain, atrial fibrillation BP: 124 / 73 HR: 100 Rhythm: Sinus Technical Quality: Adequate MEASUREMENTS (Male / Female) Normal Values 2D ECHO LV Diastolic Diameter PLAX 3.9 cm 4.2 - 5.9 / 3.9 - 5.3 cm LV Systolic Diameter PLAX 3.0 cm IVS Diastolic Thickness 1.2 cm 0.6 - 1.0 / 0.6 - 0.9 cm IVS Systolic Thickness 1.2 cm LVPW Diastolic Thickness 1.3 cm 0.6 - 1.0 / 0.6 - 0.9 cm LVPW Systolic Thickness 1.2 cm LVOT Diameter 2.0 cm LV Ejection Fraction 2D Teich 46.1 % LV Ejection Fraction MOD 2C 49.6 % LV Ejection Fraction 2C AL 49.1 % LA Diameter 3.7 cm Aorta at Sinotubular Diameter 2.5 cm IVC Diameter 1.9 cm M-MODE Aortic Annulus Diameter 3.2 cm LA Ao Ratio MM 1.2 MV E Point Septal Separation 1.2 cm DOPPLER AV Peak Velocity 111.0 cm/s LVOT Peak Velocity 76.0 cm/s AV Area Cont Eq vti 2.3 cm squared AV Area Cont Eq pk 2.3 cm squared MV Area PHT 5.0 cm squared Mitral E to A Ratio 3.0 MV E' Velocity 93.0 cm/s Mitral E to LV E' Septal Ratio 6.2 TR Peak Velocity 276.7 cm/s TR Peak Gradient 30.6 mmHg TV Peak E Velocity 136.0 cm/s Right Atrial Pressure 3.0 mmHg Pulmonary Artery Systolic Pressu 33.6 mmHg PV Peak Velocity 88.0 cm/s FINDINGS Left Ventricle Normal left ventricular cavity size and systolic function. Left ventricular ejection fraction is estimated at 55%. No regional wall motion abnormalities. Rhythm precludes evaluation of diastolic function. Right Ventricle Normal right ventricular size and systolic function. Right ventricular systolic pressure 45 mmHg. Right Atrium Moderately increased right atrial size. Left Atrium Mildly increased left atrial size. Mitral Valve Mild mitral annular calcification. Mildly thickened mitral valve. No mitral valve stenosis. Trace to mild mitral valve regurgitation. Aortic Valve Aortic valve not well visualized. No aortic valve stenosis. Trace to mild aortic valve regurgitation. Tricuspid Valve Structurally normal tricuspid valve. No tricuspid valve stenosis. Moderate tricuspid valve regurgitation. Pulmonic Valve Pulmonic valve not well visualized. Pericardium No pericardial effusion. Aorta Normal size aortic root and proximal ascending aorta. IVC Normal IVC dimension with <50% respiratory change of the inferior vena cava. CONCLUSIONS 1. Normal left ventricular cavity size and systolic function. Left ventricular ejection fraction is estimated at 55%. No regional wall motion abnormalities. 2. Normal right ventricular size and systolic function. 3. Trace to mild aortic valve regurgitation. 4. Moderate tricuspid valve regurgitation. 5. When compared to previous echocardiogram dated 08/09/2020, tricuspid and mitral valve regurgitation may have decreased somewhat. Esha Martin MD (Electronically Signed) Final Date: 22 April 2022 13:43 S
--- NOTE | 2022-04-21 20:38 | ECG_ITS ---
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 Measurements Intervals [place] Rate: 99 P: [place]: QRS: -6 QRSD: 97 T: -64 QT: 377 QTc: 485 Interpretive Statements ATRIAL FIBRILLATION INFERIOR MYOCARDIAL INFARCTION , OF INDETERMINATE AGE [40+ ms Q WAVE AND/OR ST/T ABNORMALITY IN II/aVF] Compared to ECG 04/21/2022 16:46:48 No significant changes Electronically Signed On 04-23-2022 8:09:53 CDT by Esha Martin M.D. [id number]
[2022-04-22] VITALS (12 sets, daily range): BP systolic 107–146; BP diastolic 64–94; PULSE 80–114; RESP 16–26; TEMP 36.3–37.2; O2SAT 92–100
[2022-04-22 05:58] LABS: Basophils # 0.1 10^3/uL (0.0-0.1); Basophils % 0.9 %; Eosinophils # 0.2 10^3/uL (0.0-0.8); Eosinophils % 2.9 %; Hematocrit 45.7 % (37.0-47.0); Hemoglobin 14.1 g/dL (11.5-15.3); Lymphocytes # 1.6 10^3/uL (0.8-4.8); Lymphocytes % 20.9 %; Mean Corpuscular HGB Conc 30.9 g/dL (30.0-36.0); Mean Corpuscular Hemoglobin 28.8 pg (28.0-34.0); Mean Corpuscular Volume 93.3 fl (81-99); Mean Platelet Volume 11.1 fL (7.4-10.4); Monocytes # 0.7 10^3/uL (0.2-0.9); Monocytes % 8.9 %; Neutrophils # 4.74 10^3/uL (1.8-7.7); Neutrophils % 63.3 %; Nucleated Red Blood Cells % 0 %; Platelet Count 125 10^3/cmm (130-400); Red Cell Distribution Width 15.8 % (12.1-15.1); White Blood Count 7.5 10^3/uL (4.0-10.0)
[2022-04-22 06:20] LABS: Anion Gap 12.4 (5-19); Blood Urea Nitrogen 20 mg/dL (8-23); Calcium 9.7 mg/dL (8.5-10.5); Carbon Dioxide 29 mmol/L (22-29); Chloride 105 mmol/L (98-107); Glucose 104 mg/dL (65-115); Osmolality Calculated 297 mOsm/kg (285-295); Potassium 4.4 mmol/L (3.5-5.1); Sodium 142 mmol/L (136-145)
[2022-04-22] MEDS: clopidogrel 75 mg Tablet PO (10:10)
[2022-04-22] MEDS: sertraline 50 mg Tablet 100 MG PO (10:10)
[2022-04-22] MEDS: magnesium oxide 400 mg tablet PO (10:10)
[2022-04-22] MEDS: isosorbide mononitrate ER 60 mg Tablet 120 MG PO (10:11)
[2022-04-22] MEDS: FUROsemide 40 mg Tablet PO (10:11)
[2022-04-22] MEDS: sotalol 80 mg Tablet PO ×2 (10:12→17:59)
--- NOTE | 2022-04-22 12:50 | PM.CONSULT ---
Providers/Reason For Consult Consulting Physician/Specialty*: Dr. Martin, Cardiology Reason for Consult*: Atrial fibrillation with rapid ventricle response Attending Physician: Silvino Arreguin Primary Care Provider: ALFONSO Schmitt History of Present Illness History of Present Illness Florence Mehta is a 86 year old female with past medical history of paroxysmal atrial fibrillation, heart failure with preserved ejection fraction, history of bradycardia, chronic descending thoracic aortic dissection and CAD, ascending aortic aneurysm 5 cm in diameter, s/p CABG, s/p PCI of vein graft to circumflex in June 2015, type 2 diabetes mellitus, dyslipidemia and hypertension. She is here with at least three day h/o tachycardia with HR in 130's-140's on pulse ox. She also developed some CP and SOB and presented to ER yesterday. She was given metoporlol IV f/b cardizem gtt. She remained briefly on cardizem drip. She is currently in A. fib but is rate controlled mostly. She feels better. She has not been on anticoagulation for last several years. She was previously on sotalol 160 mg BID that was cut back to 80 mg BID for bradycardia. She has h/o TIA per patient. She lost her suddenly last year and since then her daughter Florence Duron has been taking care of her meds. Review of Systems Const: Denies: fever(s), chills, body aches or malaise Eyes: Denies: change in vision, eye discomfort or eye redness ENMT: Denies: throat pain, oral sores or ear or mastoid pain Card: Reports: chest pain; Denies: edema, pre-syncope or dyspnea on exertion Resp: Denies: dyspnea, productive cough, change in phlegm color or hemoptysis GI: Denies: abdominal pain, nausea, vomiting, diarrhea, constipation, hematochezia or melena : Denies: flank pain, urinary frequency or hematuria Musc: Denies: back pain, joint swelling or joint redness Skin/Breast: Denies: rash or new lesions Neuro: Denies: headache(s), numbness in extremities, weakness in extremities, dizziness, confusion or seizure-like activity Endo: Denies: polyuria or polydipsia Addy/Lymph: Denies: easy bleeding or tender lymph nodes All/Imm: Denies: urticaria or tongue swelling Medications/Allergies Home Medications Medication Instructions Recorded Confirmed Last Taken Type blood sugar diagnostic #10 ea 09/17/19 04/21/22 Unknown History lancets 30 gauge #25 ea 09/17/19 04/21/22 Unknown History nitroglycerin 0.4 mg sublingual 0.4 mg sublingual Q5M PRN chest 12/16/19 04/21/22 Unknown Rx tablet pain #1 pkg ascorbate calcium (vitamin C) 500 500 mg PO DAILY 02/10/20 04/21/22 04/21/22 History mg tablet [place] 450 mg capsule 450 mg PO DAILY 02/10/20 04/21/22 04/21/22 History losartan 25 mg tablet 25 mg PO DAILY #90 tabs 04/28/21 04/21/22 04/21/22 Rx magnesium oxide 400 mg (241.3 mg 400 mg PO DAILY #90 tabs 05/03/21 04/21/22 04/21/22 Rx magnesium) tablet omega-3 fatty acids 1,000 mg 2,000 mg PO BID #360 caps 05/03/21 04/21/22 04/21/22 Rx capsule (Fish Oil Concentrate) ferrous gluconate 324 mg (38 mg 324 mg PO EVERY OTHER DAY 05/11/21 04/21/22 04/20/22 History iron) tablet sotalol 80 mg tablet 80 mg PO BID 05/11/21 04/21/22 04/21/22 History amlodipine 10 mg tablet 10 mg PO DAILY #90 tabs 07/11/21 04/21/22 04/21/22 Rx syringe with needle 3 mL 22 gauge #1 ea 08/03/21 04/21/22 Unknown Rx x 1 sitagliptin 100 mg tablet (Januvia) 100 mg PO QDAY #90 tabs 10/10/21 04/21/22 04/21/22 Rx potassium chloride 10 mEq 20 meq PO DIRECTED #180 tabs 12/05/21 04/21/22 04/21/22 Rx tablet,extended release(part/cryst) glimepiride 4 mg tablet 4 mg PO QAM #90 tabs 01/24/22 04/21/22 04/21/22 Rx isosorbide mononitrate 120 mg 120 mg PO DAILY #90 tabs 01/24/22 04/21/22 04/21/22 Rx tablet,extended release 24 hr sertraline 50 mg tablet 100 mg PO DAILY #90 tabs 01/24/22 04/21/22 04/21/22 Rx clopidogrel 75 mg tablet 75 mg PO DAILY #90 tabs 04/04/22 04/21/22 04/21/22 Rx cyanocobalamin (vitamin B-12) 1,000 mcg IM Q30D 04/21/22 04/21/22 Unknown History 1,000 mcg/mL injection solution dapagliflozin 10 mg tablet 10 mg PO DAILY 04/21/22 04/21/22 04/21/22 History (Farxiga) furosemide 40 mg tablet (Lasix) See Rx Instructions .Route .COMPLEX 04/21/22 04/21/22 04/21/22 History metformin 500 mg tablet 500 mg PO QPM 04/21/22 04/21/22 04/20/22 History Allergies Allergy/AdvReac Type Severity Reaction Status Date / Time atorvastatin [From Lipitor] Allergy Unknown Unknown Verified 01/24/22 11:18 butorphanol Allergy Unknown Goes crazy Verified 01/24/22 11:18 ezetimibe [Zetia] Allergy Unknown Unknown Verified 01/24/22 11:18 piroxicam [From Feldene] Allergy Unknown Unknown Verified 01/24/22 11:18 simvastatin [From Zocor] Allergy Unknown Unknown Verified 01/24/22 11:18 Sulfa (Sulfonamide Allergy Unknown Unknown Verified 01/24/22 11:18 Antibiotics) Current Medications Generic Name Dose Route Start Last Admin Trade Name Freq PRN Reason Stop Dose Admin Clopidogrel Bisulfate 75 mg 04/22/22 09:00 04/22/22 10:10 Clopidogrel 75 Mg Tablet PO 75 mg DAILY ISABEL Administration Furosemide 40 mg 04/22/22 09:00 04/22/22 10:11 Furosemide 40 Mg Tablet PO 40 mg DAILY ISABEL Administration Diltiazem HCl 50 mg/ Sodium 50 mls @ 0 mls/hr 04/21/22 17:00 04/21/22 22:56 Chloride IV 0 mg/hr .Q0M ISABEL 0 mls/hr Titration Protocol Per Protocol Isosorbide Mononitrate 120 mg 04/22/22 09:00 04/22/22 10:11 Isosorbide Mononitrate Er 60 Mg Tablet PO 120 mg DAILY ISABEL Administration Magnesium Oxide 400 mg 04/22/22 09:00 04/22/22 10:10 Magnesium Oxide 400 Mg Tablet PO 400 mg DAILY ISABEL Administration Sertraline HCl 100 mg 04/22/22 09:00 04/22/22 10:10 Sertraline 50 Mg Tablet PO 100 mg DAILY ISABEL Administration Sotalol HCl 80 mg 04/22/22 09:00 04/22/22 10:12 Sotalol 80 Mg Tablet PO 80 mg BID ISABEL Administration PFSH Acute PFSH: Medical History Atherosclerotic heart disease of [place] coronary artery without angina pectoris Recent nuclear stress test, 03/03/2020 demonstrated reversible ischemia, small area, LAD distribution Benign hypertension -resume low dose BB and lasix; hold Amlodipine, Imdur Chronic diastolic heart failure Chronic thoracic aortic dissection Constipation -on bowel regimen, as noted above Controlled type 2 diabetes mellitus with hyperglycemia, without long-term current use of insulin COPD with emphysema -no acute exacerbation -CXR noted as well as RML nodule on CT CVA (cerebral vascular accident) Fatigue Generalized anxiety disorder Memory deficit Mixed hyperlipidemia Paroxysmal atrial fibrillation Patient has a history of easy bruising/spontaneous bleeding. So for this reason, she is not on any oral anticoagulation SOB (shortness of breath) Thoracic aortic aneurysm Visual distortion Vitamin B12 deficiency Vitamin D deficiency Surgical History History of appendectomy History of colonoscopy 2014 History of coronary artery bypass graft History of hysterectomy Family History Sister Cancer Lung disease Brother CAD (coronary artery disease) Denies family history of Diabetes Clotting disorder Dementia Chronic kidney disease (CKD) Suicide Anesthesia complication Bleeding disorder Stroke Social History Smoking and tobacco status: never smoked Second hand smoke exposure: No Smoking risk assessment/counseling performed?: No Alcohol intake: never Desire information about alcohol rehabilitation?: No Counseling given: No Desire information about substance/drug rehabilitation?: No Counseling given: No Caregiver/support person: No Lives independently: Yes Household members: spouse Marital status: History of recent travel: No Current gender identity: Female Vitals/I&O/Wt Last Vital Signs Temp 98.1 F 04/22/22 12:00 Pulse 87 04/22/22 12:00 Resp 16 04/22/22 12:00 BP 107/64 04/22/22 12:00 Pulse Ox 98 04/22/22 12:00 O2 Del Method 04/22/22 12:00 O2 Flow Rate 2 04/22/22 08:38 04/21/22 04/22/22 04/22/22 22:59 06:59 14:59 Intake Total 13.958 / 13.958 1650 / 1663.958 240 / 240 Output Total 800 / 800 800 / 1600 Balance -786.042 / -786.042 850 / 63.958 240 / 240 Weight last 48 hrs Weight 150 lb Physical Exam Narrative: GENERAL: Averagely built and averagely nourished in no acute distress HEENT: Extraocular movement intact. No pallor or icterus. NECK: central trachea, No JVD. No carotid bruit. CARDIOVASCULAR SYSTEM: S1-S2 irregular. No murmur rubs or gallops appreciated. RESPIRATORY SYSTEM: Chest clear to auscultation. No wheezes rhonchi or rubs heard. No use of accessory muscles. ABDOMEN: Soft, nontender and nondistended. Normal bowel sounds present. No hepatosplenomegaly appreciated. EXTREMITIES: No cyanosis or edema. No signs of chronic venous insufficiency. RN GERIATRIC: Patient is alert oriented ?3. No focal neurological deficits. Data : 04/22/22 05:27 04/22/22 05:27 Other Labs: Baseline troponin T of 17 at 2 hours 14 and at 6 hours 15. NT proBNP 558. TSH 3.42. Other data: CTA chest (21 April 2022) IMPRESSION: 1. Ascending thoracic aorta is aneurysmal measuring 5.0 cm in the transverse dimension. Descending thoracic aorta is aneurysmal measuring 4.9 cm in the transverse dimension. No evidence for rupture. In general, aortic diameters of 5.[address] patients at high risk for rupture and should be considered for intervention. If connective tissue diseases such as Marfan or Taniya-Danlos disease is known, then a diameter of 5 cm prompts consideration of prophylactic aortic root replacement. 2. 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 3. Multivessel atherosclerotic disease which involves the coronary arteries. 4. No evidence for pulmonary embolus 08/09/20 Echo Mild diffuse hypokinesia of the septum.? Somewhat dyskinetic ?inferobasal segment.? Overall ejection fraction is around 55%. ?Moderately increased right atrial size. ?Moderate mitral valve regurgitation. ?Mild aortic valve regurgitation. ?[id number] eccentric tricuspid valve regurgitation. ?Estimated pulmonary artery peak systolic pressure of 22 mmHg. ?There is no pericardial effusion. ?There are no intracardiac masses. ?Compared to the study from 09/29/2013, there is some worsening of ?the valvular regurgitations. CAROTID DUPLEX 03/2020 Moderate heterogeneous? plaques bilaterally at the bifurcations ?and proximal carotid arteries with velocity elevation consistent ?with 16-49% stenosis. ?Intimal thickening and minimal plaques in the common carotid ?arteries bilaterally. Lexiscan sestamibi myocardial perfusion imaging 03/2020 .? Myocardial perfusion imaging revealing a small area of reversible defect in ?the apical anterior region, suggestive of ischemia in the distribution of the ?distal left anterior descending artery. ?2.? Normal LV ejection fraction 78%. ?3.? LV wall motion analysis revealing no gross wall motion normalities. ?4.? Normal LV volume. ?No similar previous studies available for comparison Left heart catheterization 04 October 2016 Conclusions Procedure Summary Chronic total occlusion of the ostial LAD and the first and second obtuse marginal branches of the circumflex artery. Moderate to severe diffuse disease in the RCA. Patent stents in the left main and proximal circumflex, its artery Chronic occlusion of the venous graft to right coronary artery Patent sequential venous graft to the first and second obtuse marginal artery with patent stented segments in the graft Patent MILLER to the LAD Mild to moderate diffuse disease in the other vessels Moderately severe disease in the ostium of the circumflex artery Normal LV ejection fraction of 55% Hypokinetic basal and mid inferior wall segment LVEDP of 24 mmHg Recommendations Discussed and reviewed the cath data with Dr Vazquez. It was thought to be appropriate to consider FFR of the ostial circumflex lesion . Dr. Vazquez took over further management of this patient FFR of the proximal circumflex to 0.97. Therefore, no intervention was carried out. A&P Assessment and plan (1) Atrial fibrillation with RVR: No breath through episodes of atrial fibrillation since last year Patient is at high risk for stroke but she has not been on OAC for more than a decade looking at records -will continue with sotalol 80 mg BID and start on low dose cardizem -will defer OAC to Dr. Alejandre (patient's primary fans clerk) -BP/HR monitoring closely -I spoke to patient's daughter Florence Duron and discussed the plan -possible discharge tomorrow. Status: Acute (2) Chest pain: resolved Status: Acute (3) Chronic diastolic heart failure: appears euvolemic -continue lasix Status: Acute (4) Atherosclerotic heart disease of [place] coronary artery without angina pectoris: Status: Acute Qualifiers: [place] vs. transplanted heart: [place] heart Qualified Code(s): I25.10 - Atherosclerotic heart disease of [place] coronary artery without angina pectoris Plan Type 2 DM CAD s/p CABG HTN Dyslipidemia Thank you for allowing me to participate in patient's care Please feel free to call with questions and concerns. Coding Level of Care Code Acute Ditching Machine Engineer for Awais Hernandez Diagnoses Atrial fibrillation with RVR I48.91 Chest pain R07.9 Chronic diastolic heart failure I50.32 Atherosclerotic heart disease of [place] coronary artery without angina pectoris I25.10 [place] vs. transplanted heart: [place] heart
--- NOTE | 2022-04-22 14:49 | P.PN_ITS ---
Subjective Subjective: He reports he is doing well today. No further chest pain. Weaned off Cardizem drip. Vitals/I&O/Wt Last Vital Signs Temp 98.1 F 04/22/22 12:00 Pulse 87 04/22/22 12:00 Resp 16 04/22/22 12:00 BP 107/64 04/22/22 12:00 Pulse Ox 98 04/22/22 12:00 O2 Del Method 04/22/22 12:00 O2 Flow Rate 2 04/22/22 08:38 04/21/22 04/22/22 04/22/22 22:59 06:59 14:59 Intake Total 13.958 / 13.958 1650 / 1663.958 480 / 480 Output Total 800 / 800 800 / 1600 Balance -786.042 / -786.042 850 / 63.958 480 / 480 Weight last 48 hrs Weight 68.039 kg Physical Exam Narrative: Daughter at bedside Const: COMMON NORMALS: patient oriented x3 and alert GENERAL APPEARANCE: cooperative ORIENTATION/CONSCIOUSNESS: Yes awake HENMT: COMMON NORMALS: oropharynx normal Neck/C-Spine: COMMON NORMALS: no JVD Resp: COMMON NORMALS: normal respiratory effort and clear to auscultation bilaterally AUSCULTATION: clear to auscultation bilaterally Cardio: COMMON NORMALS: no JVD, S1 normal heart sound present, S2 normal heart sound present and No murmurs present (Cardio) RHYTHM: abnormal rhythm irregularly irregular HEART SOUNDS: S1 normal heart sound present and S2 normal heart sound present GI: COMMON NORMALS: Normal to inspection, nondistended, normoactive bowel sounds present, Soft to palpation and non-tender PALPATION: Yes Soft to palpation Extremity: COMMON NORMALS: no joint enlargement and no pedal edema Neuro: COMMON NORMALS: patient oriented x3 and moves all extremities SEN SORIUM/ORIENTATION: Yes alert Skin: COMMON NORMALS: no rashes or lesions noted GENERAL SKIN EXAM: no rashes or lesions noted Data : 04/22/22 05:27 04/22/22 05:27 A&P Assessment and plan (1) Atrial fibrillation with RVR: Weaned off Cardizem drip. Appreciate cardiology recommendations. Continue Cardizem 30 mg p.o. twice daily. Pending further discussion with her daughter. Seems previously she was symptomatic with atrial fibrillation with fatigue anytime she lays in atrial fibrillation. Not on anticoagulation. Not entirely clear reason why, I see listed easy bruising. Discussing with her her daughter no history of life-threatening bleed, but does have chronic type II aortic dissection, as well as ascending aortic aneurysm. Not sure if this contributed to decision to discontinue anticoagulation in the past. On sotalol at home. She is concerned about elevating risk of stroke with going up on the dose, so we will not increase dose for now. Continue Cardizem drip. Continue home dose sotalol as per discussion with cardiology. Appreciate additional recommendations. No obvious trigger. TTE with normal ejection fraction, no R WMA. Normal RV size and systolic function. Trace to mild AVR. Moderate TVR. Status: Acute (2) Chest pain: So far has resolved with rate control. Complete troponin EKG series. D-dimer is normal, no PE on CTA. Denies any tearing pain radiating to the back, no abdominal pain. Aortic aneurysm as well as chronic dissection appears similar to prior. Monitor on telemetry. Status: Acute (3) Elevated d-dimer: Suspect secondary to chronic dissection. No recent values, in the past very elevated compared to current with suspect secondary to dissection at the time. Status: Acute Plan Current diastolic CHF, not in exacerbation HTN DM2 COPD History of CVA ROBERTA HLD Thoracic aortic aneurysm Chronic aortic dissection Other current problems Attestations Medical Necessity Statement*: Requires further admission for optimization and control of A. fib with RVR, previously on rhythm control, not on anticoagulation. Coding Level of Care Code Acute Servicenow Administrator Developer for g Fwd Diagnoses Atrial fibrillation with RVR I48.91 Chest pain R07.9 Elevated d-dimer R79.89
[2022-04-22] MEDS: dilTIAZem 30 mg Tablet PO ×2 (14:51→20:36)
[2022-04-22 21:12] LABS: Glucose Point of Care 445 mg/dL (70-110)
[2022-04-22] MEDS: insulin lispro 100 unit/1 mL SUBCUT (21:36)
[2022-04-23] VITALS (59 sets, daily range): BP systolic 83–139; BP diastolic 51–90; PULSE 69–135; RESP 11–26; TEMP 36.2–36.8; O2SAT 83–98
[2022-04-23 05:42] LABS: Basophils % 0.6 %; Eosinophils # 0.3 10^3/uL (0.0-0.8); Eosinophils % 3.7 %; Hematocrit 38.4 % (37.0-47.0); Hemoglobin 12.3 g/dL (11.5-15.3); Lymphocytes # 1.4 10^3/uL (0.8-4.8); Lymphocytes % 21.5 %; Mean Corpuscular Hemoglobin 29.1 pg (28.0-34.0); Mean Platelet Volume 11.6 fL (7.4-10.4); Monocytes # 0.7 10^3/uL (0.2-0.9); Monocytes % 10.7 %; Neutrophils # 3.99 10^3/uL (1.8-7.7); Neutrophils % 59.5 %; Nucleated Red Blood Cells % 0 %; Platelet Count 115 10^3/cmm (130-400); Red Blood Count 4.22 10^6/uL (4.1-5.3); Red Cell Distribution Width 15.6 % (12.1-15.1); White Blood Count 6.7 10^3/uL (4.0-10.0)
[2022-04-23 06:09] LABS: Anion Gap 13.9 (5-19); Blood Urea Nitrogen 24 mg/dL (8-23); Calcium 9.4 mg/dL (8.5-10.5); Carbon Dioxide 27 mmol/L (22-29); Chloride 102 mmol/L (98-107); Glucose 128 mg/dL (65-115); Osmolality Calculated 294 mOsm/kg (285-295); Potassium 3.9 mmol/L (3.5-5.1); Sodium 139 mmol/L (136-145)
[2022-04-23 06:40] LABS: Glucose Point of Care 162 mg/dL (70-110)
[2022-04-23 08:23] LABS: Glucose Point of Care 222 mg/dL (70-110)
[2022-04-23] MEDS: sertraline 50 mg Tablet 100 MG PO (08:54)
[2022-04-23] MEDS: insulin lispro 100 unit/1 mL SUBCUT ×4 (08:54→21:26)
[2022-04-23] MEDS: clopidogrel 75 mg Tablet PO (08:55)
[2022-04-23] MEDS: ferrous gluconate 324 mg Tablet PO (08:55)
[2022-04-23] MEDS: FUROsemide 40 mg Tablet PO (08:55)
[2022-04-23] MEDS: magnesium oxide 400 mg tablet PO (08:55)
[2022-04-23] MEDS: sotalol 80 mg Tablet PO ×2 (08:55→18:07)
[2022-04-23] MEDS: isosorbide mononitrate ER 60 mg Tablet 120 MG PO (08:55)
[2022-04-23] MEDS: dilTIAZem 30 mg Tablet PO ×2 (08:59→20:47)
--- NOTE | 2022-04-23 12:03 | PC.NURSE ---
patient reports chest pressure blood pressure dropped with increased work of breathing notified provider instructions to start Normal saline at 50ml per hour for 250ml
[2022-04-23] MEDS: sodium chloride 0.9% 250 ML 50 ML IV (12:16)
[2022-04-23 12:47] LABS: Glucose Point of Care 172 mg/dL (70-110)
[2022-04-23] MEDS: enoxaparin 80 mg/0.8 mL Syringe 70 MG SUBCUT (13:15)
--- NOTE | 2022-04-23 13:50 | ECG_ITS ---
[facility] Test Date: 2022-04-23 Pat Name: Florence Mehta Department: Room: 276 Gender: Female Board Design Engineer: : 1935 Requested By: Jake Matute Order Number: [id number] Reading MD: Measurements Intervals [place] Rate: 98 P: [place]: QRS: -21 QRSD: 101 T: 14 QT: 392 QTc: 501 Interpretive Statements ATRIAL FIBRILLATION INFERIOR MYOCARDIAL INFARCTION , PROBABLY OLD [40+ ms Q WAVE AND/OR ST/T ABNORMALITY IN II/aVF] Compared to ECG 04/22/2022 01:33:39 No significant changes [id number]
[2022-04-23 14:08] LABS: Troponin(5th) Baseline 15 ng/L (0-10)
--- NOTE | 2022-04-23 15:01 | ECG_ITS ---
[facility] Test Date: 2022-04-23 Pat Name: Florence Mehta Department: Room: 276 Gender: Female Modeling Teacher: : 1935 Requested By: Jake Matute Order Number: [id number] Bravo MD: Esha Martin M.D. Measurements Intervals [place] Rate: 89 P: [place]: QRS: -17 QRSD: 85 T: 7 QT: 379 QTc: 462 Interpretive Statements ATRIAL FIBRILLATION MINIMAL VOLTAGE CRITERIA FOR LVH, CONSIDER NORMAL VARIANT [MEETS CRITERIA IN ONE OF: R(aVL), S(V1), R(V5), R(V5/V6)+S(V1)] POSSIBLE ANTERIOR MYOCARDIAL INFARCTION , PROBABLY OLD [30 ms Q WAVE IN V3/V4, OR R < 0.2 mV IN V4] INFERIOR MYOCARDIAL INFARCTION , PROBABLY OLD [40+ ms Q WAVE AND/OR ST/T ABNORMALITY IN II/aVF] Compared to ECG 04/23/2022 13:50:42 No significant changes Electronically Signed On 04-24-2022 7:31:16 CDT by Esha Martin M.D. [email or web address] ([email or web address] medical [email or web address] Huato Softwareelyria memorial hospital.[email or web address]/store/[id number]
[2022-04-23 15:40] LABS: Troponin 5 2HR 13.13 ng/L (0-10)
[2022-04-23 15:45] LABS: Troponin 5 2HR Delta -1.87 ABS# (0-10)
--- NOTE | 2022-04-23 16:59 | P.PN_ITS ---
Subjective Subjective: Hospital course, labs appreciated. On examination patient sitting up in chair. Earlier today morning patient had hypotension while sitting in chair along with tachycardia. During the episode patient complained of chest pressure. Patient was given to 50 cc of saline bolus after which her blood pressures improved blood pressure control to remain orthostatic. Patient denies of any further chest pressures. Vitals/I&O/Wt Last Vital Signs Temp 98.2 F 04/23/22 16:00 Pulse 92 04/23/22 16:00 Resp 18 04/23/22 16:00 BP 96/59 04/23/22 16:00 Pulse Ox 94 04/23/22 16:00 O2 Del Method 04/23/22 08:00 O2 Flow Rate 2 04/22/22 08:38 04/23/22 04/23/22 04/23/22 06:59 14:59 22:59 Intake Total 120 / 840 0 / 0 474.167 / 474.167 Output Total 1550 / 1550 Balance 120 / -210 -1550 / -1550 474.167 / -1075.833 Physical Exam Narrative: Daughter at bedside Const: COMMON NORMALS: patient oriented x3 and alert GENERAL APPEARANCE: cooperative ORIENTATION/CONSCIOUSNESS: Yes awake HENMT: COMMON NORMALS: oropharynx normal Neck/C-Spine: COMMON NORMALS: no JVD Resp: COMMON NORMALS: normal respiratory effort and clear to auscultation bilaterally AUSCULTATION: clear to auscultation bilaterally Cardio: COMMON NORMALS: no JVD, regular rhythm, S1 normal heart sound present, S2 normal heart sound present and No murmurs present (Cardio) RATE: tachycardic RHYTHM: regular rhythm and abnormal rhythm irregularly irregular HEART SOUNDS: S1 normal heart sound present and S2 normal heart sound present GI: COMMON NORMALS: Normal to inspection, nondistended, normoactive bowel sounds present, Soft to palpation and non-tender PALPATION: Yes Soft to palpation Extremity: COMMON NORMALS: no joint enlargement and no pedal edema Neuro: COMMON NORMALS: patient oriented x3 and moves all extremities SENSORIUM/ORIENTATION: Yes alert Skin: COMMON NORMALS: no rashes or lesions noted GENERAL SKIN EXAM: no rashes or lesions noted Data : 04/23/22 05:08 04/23/22 05:08 A&P Assessment and plan (1) Atrial fibrillation with RVR: Off Cardizem drip. Appreciate cardiology recommendations. Continue with sotalol 80 twice daily. Continue with Cardizem 30 mg twice daily. History of bradycardia in the past. Monitor for bradycardia. Not on anticoagulation as an outpatient for many years. Start on Lovenox 1 mg/kg body weight every 12 hourly. Status: Acute (2) Chest pain: History of CABG. History of positive stress test in 2019. Case discussed with cardiology. Repeat stress test in a.m. N.p.o. after midnight. Troponin cycle. Status: Acute (3) Elevated d-dimer: Suspect secondary to chronic dissection. No recent values, in the past very elevated compared to current with suspect secondary to dissection at the time. Started on Lovenox as above. Remains on room air. Status: Acute (4) Controlled type 2 diabetes mellitus with hyperglycemia, without long-term current use of insulin: Status: Chronic (5) Chronic diastolic heart failure: Status: Acute (6) Orthostatic hypotension: Status: Acute Plan Orthostatic hypotension. Most likely secondary to overdiuresis. Stop Lasix. Gentle IV hydration. Hold off on Imdur for now. Current diastolic CHF, not in exacerbation HTN DM2 COPD History of CVA ROBERTA HLD Thoracic aortic aneurysm Chronic aortic dissection Other current problems Analgesia: Tylenol as needed Glycemic control: Sliding scale at moderate dose protocol Nutrition: Cardiac diet, n.p.o. after midnight CODE STATUS: Limited resuscitation PUD prophylaxis: Famotidine DVT prophylaxis: Full dose Lovenox will suffice for DVT prophylaxis. Discharge planning: Discharge back home most likely within next 24 to 48 hours if stress test remains negative and patient orthostasis resolves. Home with possible home health Continue with care at CSU level This documentation was created by [employer] cosmetician apprentice software. Every effort was made to ensure accuracy of cosmetician apprentice. Any obvious errors or omissions should be clarified with the author of the document. Attestations Medical Necessity Statement*: Requires further hospitalization for management of atrial fibrillation with rapid ventricular response, positive orthostatics, unstable angina Time Spent in Patient Care: Greater than 35 minutes Coding Level of Care Code Acute Binder Operator for Awais Fwd Diagnoses Atrial fibrillation with RVR I48.91 Chest pain R07.9 Elevated d-dimer R79.89 Controlled type 2 diabetes mellitus with hyperglycemia, without long-term current use of insulin E11.65 Chronic diastolic heart failure I50.32 Orthostatic hypotension I95.1
--- NOTE | 2022-04-23 17:02 | ECG_ITS ---
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 Interpretive Statements NAME OF STUDY: LEXISCAN SESTAMIBI STRESS TEST INDICATION: Unstable angina, PROCEDURE: At the baseline, the EKG revealed atrial fibrillation with a ventricular response rate of 96 bpm. Possible old inferior wall TX. Poor R wave progression. Nonspecific T wave changes. The baseline blood pressure was 132/63 mm Hg with a heart rate of 96 beats/min. Lexiscan was infused over a period of 20 seconds. A total of 0.4 milligrams of Lexiscan was infused. The stress phase was continued for a total of 5 minutes. Heart rate at the end of the stress phase was 103 with a blood pressure 139/91. The EKG at the peak infusion revealed no significant changes. Sestamibi was injected 20 seconds after the Lexiscan infusion. Blood pressure at the end of the recovery phase was 128/81 with a heart rate of 99 per minute. CONCLUSION: 1. No significant EKG changes with the LexiScan infusion 2. No LexiScan induced chest pain or cardiac arrhythmia 3. Normal blood pressure and heart rate response 4. Sestamibi/sestamibi perfusion scan pending; see separate report. Electronically Signed On 04-25-2022 9:54:44 CDT by Andrei Alejandre M.D. [id number]
[2022-04-23 17:07] LABS: Glucose Point of Care 257 mg/dL (70-110)
--- NOTE | 2022-04-23 18:02 | P.PN_ITS ---
Subjective Subjective: The patient is admitted to the hospital with atrial fibrillation with rapid ventricular rate. She was started on a low-dose of Cardizem. The heart rate seems to be slowly getting under control. Had episodes of hypotension, since the hospital admission. She was found to have severe orthostatic blood pressure drop. No fever or chills. No cough she had some vague chest pain yesterday and today. No significant EKG changes. The troponin T so far negative for myocardial Jiffy. Medications: Medication Review Details: Current Medications Acetaminophen (Acetaminophen 325 Mg Tablet) 650 mg PO Q6H PRN PRN Reason: Mild/Mod Pain Or Temp >/= 101 Clopidogrel Bisulfate (Clopidogrel 75 Mg Tablet) 75 mg PO DAILY [facility] Last Admin: 04/23/22 08:55 Dose: 75 mg Dextrose (Dextrose 50% Syringe 50 Ml) 25 ml IVP ONCE PRN; Protocol PRN Reason: hypoglycemia protocol Dextrose (Dextrose 50% Syringe 50 Ml) 50 ml IVP PRN PRN; Protocol PRN Reason: hypoglycemia protocol Diltiazem HCl (Diltiazem 30 Mg Tablet) 30 mg PO 0900,2100 [facility] Last Admin: 04/23/22 08:59 Dose: 30 mg Enoxaparin Sodium (Enoxaparin 80 Mg/0.8 Ml Syringe) 70 mg SUBCUT Q12H [facility] Last Admin: 04/23/22 13:15 Dose: 70 mg Ferrous Gluconate (Ferrous Gluconate 324 Mg Tablet) 324 mg PO EVERY OTHER DAY [facility] Last Admin: 04/23/22 08:55 Dose: 324 mg Furosemide (Furosemide 40 Mg Tablet) 40 mg PO DAILY [facility] Last Admin: 04/23/22 08:55 Dose: 40 mg Glucagon (Glucagon 1 Mg/Ml Inj 1 Ml) 1 mg IM ONCE PRN; Protocol PRN Reason: Adult Acute Hypoglycemia Prot. Hydroxyzine Pamoate (Hydroxyzine 25 Mg Capsule) 25 mg PO ONCE PRN PRN Reason: ANXIETY Dextrose (D5w) 500 mls @ 100 mls/hr IV ONCE PRN; Protocol PRN Reason: Adult Acute Hypoglycemia Prot Insulin Human Lispro (Insulin Lispro 100 Unit/1 Ml) 0 unit SUBCUT WM&BEDTIME [facility]; Protocol Last Admin: 04/23/22 12:55 Dose: 2 unit Isosorbide Mononitrate (Isosorbide Mononitrate Er 60 Mg Tablet) 60 mg PO DAILY [facility] Magnesium Oxide (Magnesium Oxide 400 Mg Tablet) 400 mg PO DAILY [facility] Last Admin: 04/23/22 08:55 Dose: 400 mg Nitroglycerin (Nitroglycerin 0.4 Mg Sublingual Tablet) 0.4 mg SUBLINGUAL Q5M PRN PRN Reason: chest pain Ondansetron HCl (Ondansetron 2 Mg/Ml Sdv 2 Ml) 4 mg IVP Q8H PRN PRN Reason: vomiting, or N/V if npo Sertraline HCl (Sertraline 50 Mg Tablet) 100 mg PO DAILY [facility] Last Admin: 04/23/22 08:54 Dose: 100 mg Sotalol HCl (Sotalol 80 Mg Tablet) 80 mg PO BID [facility] Last Admin: 04/23/22 08:55 Dose: 80 mg Vitals/I&O/Wt Last Vital Signs Temp 98.2 F 04/23/22 16:00 Pulse 92 04/23/22 16:00 Resp 18 04/23/22 16:00 BP 96/59 04/23/22 16:00 Pulse Ox 94 04/23/22 16:00 O2 Del Method 04/23/22 08:00 O2 Flow Rate 2 04/22/22 08:38 04/23/22 04/23/22 04/23/22 06:59 14:59 22:59 Intake Total 120 / 840 0 / 0 954.167 / 954.167 Output Total 1550 / 1550 Balance 120 / -210 -1550 / -1550 954.167 / -595.833 Physical Exam Narrative: GENERAL: The patient is alert and oriented times three. Not in any acute distress. HEENT: No significant pallor, icterus or lymphadenopathy.Oral cavity: There are no mucous membrane lesions. NECK: Trachea appears to be central. No masses noted. No JVD or thyromegaly appreciated. RESPIRATORY: Chest is symmetrical. No intercostals muscle retraction or any accessory muscle activation. There is no chest wall tenderness. Breath sounds are heard bilaterally. No rales or rhonchi heard. No evidence of any consolidation. BREASTS: Deferred. HEART: The first heart sound is variable. Second heart sound is normal. No S3 or S4. Short systolic murmur in the left sternal border. No diastolic m urmurs.. No pericardial rub ABDOMEN: No vessel pulsations or distention. No tenderness. No organomegaly appreciated. Bowel sounds are normally heard. : Deferred. RECTAL: Deferred. LYMPHATIC: No lymphadenopathy noted in the neck. EXTREMITIES: No edema or cyanosis. No clubbing. MUSCULOSKELETAL: No acute joint deformities or swelling SKIN: There are no significant rashes or ecchymosis NEUROPSYCHIATRIC: The patient is alert and oriented x3. Appears to be in a good mood. No tremors or rigidity noted. Data : 04/23/22 05:08 04/23/22 05:08 Other Labs: Laboratory Last Values WBC 6.7 10^3/uL (4.0-10.0) 04/23/22 05:08 RBC 4.22 10^6/uL (4.1-5.3) 04/23/22 05:08 Hgb 12.3 g/dL (11.5-15.3) 04/23/22 05:08 Hct 38.4 % (37.0-47.0) 04/23/22 05:08 MCV 91.0 fl (81-99) 04/23/22 05:08 MCH 29.1 pg (28.0-34.0) 04/23/22 05:08 MCHC 32.0 g/dL (30.0-36.0) 04/23/22 05:08 RDW 15.6 % (12.1-15.1) H 04/23/22 05:08 Plt Count 115 10^3/cmm (130-400) L 04/23/22 05:08 MPV 11.6 fL (7.4-10.4) H 04/23/22 05:08 Neut % (Auto) 59.5 % 04/23/22 05:08 Lymph % (Auto) 21.5 % 04/23/22 05:08 [place] % (Auto) 10.7 % 04/23/22 05:08 Eos % (Auto) 3.7 % 04/23/22 05:08 Baso % (Auto) 0.6 % 04/23/22 05:08 Neut # (Auto) 3.99 10^3/uL (1.8-7.7) 04/23/22 05:08 Lymph # (Auto) 1.4 10^3/uL (0.8-4.8) 04/23/22 05:08 [place] # (Auto) 0.7 10^3/uL (0.2-0.9) 04/23/22 05:08 Eos # (Auto) 0.3 10^3/uL (0.0-0.8) 04/23/22 05:08 Baso # (Auto) 0.0 10^3/uL (0.0-0.1) 04/23/22 05:08 Nucleated RBC % (auto) 0 % 04/23/22 05:08 Nucleated RBCs # 0.0 /100WBC 04/23/22 05:08 PT 14.00 SECONDS (12.1-14.9) 04/21/22 15:33 INR 1.05 (0.8-1.2) 04/21/22 15:33 APTT 28.2 SECONDS (23.9-36.7) 04/21/22 15:33 D-Dimer 2.26 ug/mIFEU (0-0.59) H 04/21/22 15:33 Sodium 139 mmol/L (136-145) 04/23/22 05:08 Potassium 3.9 mmol/L (3.5-5.1) 04/23/22 05:08 Chloride 102 mmol/L (98-107) 04/23/22 05:08 Carbon Dioxide 27 mmol/L (22-29) 04/23/22 05:08 Anion Gap 13.9 (5-19) 04/23/22 05:08 BUN 24 mg/dL (8-23) H 04/23/22 05:08 Creatinine 0.8 mg/dL (0.5-0.9) 04/23/22 05:08 GFR Calculation Not Reportable 04/23/22 05:08 Glucose 128 mg/dL (65-115) H 04/23/22 05:08 POC Glucose 257 mg/dL (70-110) H 04/23/22 17:03 Calculated Osmolality 294 mOsm/kg (285-295) 04/23/22 05:08 Calcium 9.4 mg/dL (8.5-10.5) 04/23/22 05:08 Magnesium 2.1 mg/dL (1.7-2.3) 04/21/22 14:46 Total Bilirubin 0.5 mg/dL (0.15-1.2) 04/21/22 14:46 AST 11 U/L (0-32) 04/21/22 14:46 ALT 9 U/L (0-33) 04/21/22 14:46 Alkaline Phosphatase 97 U/L (35-105) 04/21/22 14:46 Troponin T Baseline 15 ng/L (0-10) H 04/23/22 13:22 Troponin T 120 Minute 13.13 ng/L (0-10) H 04/23/22 15:05 Delta Troponin T -1.87 ABS# (0-10) L 04/23/22 15:05 Troponin T Hi Sens 6Hr 14.50 ng/L (0-10) H 04/21/22 20:40 Troponin T Hi Sens 6Hr Delta -2.50 ng/L (0-12) L 04/21/22 20:40 NT-Pro-B Natriuret Pep 558 pg/mL (0-450) H 04/21/22 14:46 Total Protein 7.4 g/dL (6.6-8.7) 04/21/22 14:46 Albumin 4.2 g/dL (3.5-5.2) 04/21/22 14:46 Globulin 3.2 g/dL (1.3-4.6) 04/21/22 14:46 Lipase 45 U/L (13-60) 04/21/22 14:46 TSH 3.42 uIU/mL (0.27-4.20) 04/21/22 14:46 A&P Assessment and plan (1) Atrial fibrillation with RVR: The patient will be continued on the Betapace 80 mg p.o. twice daily and Cardizem 30 mg p.o. every 8-12 hours. Because of the history of bradycardia, she need to be closely monitored on telemetry. Patient refused oral anticoagulation in the past. But now she seems to be willing. She has a history of easy bruising. May continue on the Lovenox for the time being. Status: Acute (2) Orthostatic hypotension: We will continue with careful IV hydration. May consider pyridostigmine, if she continues to have the symptomatic orthostatic hypotension. Status: Acute (3) Atherosclerotic heart disease of [place] coronary artery without angina pectoris: Patient has had atypical chest pain. EKG is unremarkable. Troponins are also in the normal range. At this point, he may continue on the current medications. Will have a Myocardial perfusion imaging tomorrow and then decide on further management. Status: Acute Qualifiers: [place] vs. transplanted heart: [place] heart Qualified Code(s): I25.10 - Atherosclerotic heart disease of [place] coronary artery without angina pectoris (4) Chronic thoracic aortic dissection: She has no specific symptoms, pertaining to this. May continue on the current follow-up schedule. Status: Acute (5) SOB (shortness of breath): This could be multifactorial. The atrial arrhythmia, emphysema, diastolic heart failure, etc. are contributing factors. Status: Acute Plan After reviewing the above and also based on the patient's clinical progress, further management decisions will be made. Attestations Medical Necessity Statement*: Patient requires continued hospital stay for close monitoring and further management Coding Level of Care Code Acute [place] Gatherer for Chg Fwd History Detailed Exam Detailed Medical Decision Making High Complexity Diagnoses Atrial fibrillation with RVR I48.91 Orthostatic hypotension I95.1 Atherosclerotic heart disease of [place] coronary artery without angina pectoris I25.10 [place] vs. transplanted heart: [place] heart Chronic thoracic aortic dissection I71.01 SOB (shortness of breath) R06.02
--- NOTE | 2022-04-23 18:29 | ECG_ITS ---
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 Measurements Intervals [place] Rate: 97 P: [place]: QRS: -19 QRSD: 108 T: 18 QT: 399 QTc: 508 Interpretive Statements ATRIAL FIBRILLATION POSSIBLE ANTERIOR MYOCARDIAL INFARCTION , OF INDETERMINATE AGE [30 ms Q WAVE IN V3/V4, OR R < 0.2 mV IN V4] INFERIOR MYOCARDIAL INFARCTION , PROBABLY OLD [40+ ms Q WAVE AND/OR ST/T ABNORMALITY IN II/aVF] Compared to ECG 04/23/2022 15:39:33 No significant changes Electronically Signed On 04-24-2022 7:28:09 CDT by Esha Martin M.D. [id number]
[2022-04-23 20:25] LABS: Iron 89 ug/dL (37-145); Percent Saturation 33.4 % (20-50); Total Iron Binding Capacity 266 mcg/dl; Unsaturated Iron Binding 177 ug/dL (112-347)
[2022-04-23 20:49] LABS: Troponin 5 6HR 11.21 ng/L (0-10)
[2022-04-23 20:58] LABS: Troponin 5 6HR Delta -3.79 ng/L (0-12)
[2022-04-23 21:18] LABS: Glucose Point of Care 224 mg/dL (70-110)
[2022-04-23] MEDS: hyDROXYzine 25 mg Capsule PO (21:30)
[2022-04-23] MEDS: nitroglycerin 0.4 mg sublingual Tablet SUBLINGUAL (23:45)
[2022-04-24] VITALS (16 sets, daily range): BP systolic 102–147; BP diastolic 69–97; PULSE 73–109; RESP 14–18; TEMP 36.4–36.9; O2SAT 90–96
[2022-04-24] MEDS: enoxaparin 80 mg/0.8 mL Syringe 70 MG SUBCUT ×2 (00:27→13:29)
[2022-04-24 03:22] LABS: Basophils # 0.1 10^3/uL (0.0-0.1); Eosinophils # 0.2 10^3/uL (0.0-0.8); Eosinophils % 3.3 %; Hemoglobin 11.9 g/dL (11.5-15.3); Lymphocytes # 1.5 10^3/uL (0.8-4.8); Lymphocytes % 22.3 %; Mean Corpuscular HGB Conc 31.3 g/dL (30.0-36.0); Mean Corpuscular Hemoglobin 28.3 pg (28.0-34.0); Mean Corpuscular Volume 90.5 fl (81-99); Mean Platelet Volume 11.6 fL (7.4-10.4); Monocytes # 0.7 10^3/uL (0.2-0.9); Monocytes % 10.2 %; Neutrophils # 3.96 10^3/uL (1.8-7.7); Neutrophils % 59.3 %; Nucleated Red Blood Cells % 0 %; Platelet Count 118 10^3/cmm (130-400); Red Cell Distribution Width 15.5 % (12.1-15.1); White Blood Count 6.7 10^3/uL (4.0-10.0)
[2022-04-24 03:49] LABS: Alanine Aminotransferase 8 U/L (0-33); Albumin Level 3.7 g/dL (3.5-5.2); Alkaline Phosphatase 75 U/L (35-105); Anion Gap 12.9 (5-19); Aspartate Amino Transferase 12 U/L (0-32); Blood Urea Nitrogen 24 mg/dL (8-23); Carbon Dioxide 28 mmol/L (22-29); Chloride 104 mmol/L (98-107); Chol HDL Ratio 5.75 mg/dL (0.0-4.40); Cholesterol 207 mg/dL (0-200); Globulin 2.9 g/dL (1.3-4.6); Glucose 84 mg/dL (65-115); HDL Cholesterol 36 mg/dL (60-100); LDL Cholesterol Calculated 143 mg/dL (50-129); Osmolality Calculated 295 mOsm/kg (285-295); Potassium 3.9 mmol/L (3.5-5.1); Sodium 141 mmol/L (136-145); Total Bilirubin 0.3 mg/dL (0.15-1.2); Total Protein 6.6 g/dL (6.6-8.7); Triglycerides 141 mg/dL (0-150); VLDL Cholestrol Calculation 28 mg/dL (0-30)
[2022-04-24 06:11] LABS: Glucose Point of Care 119 mg/dL (70-110)
--- NOTE | 2022-04-24 08:08 | PM.PN ---
Subjective Subjective: Patient seems to be feeling okay. She has been having episodes of tachycardia especially with exertion. She had a Myocardial perfusion imaging today which revealed moderate area of moderately decreases uptake in the inferolateral and LV apical region. Subtle area reversibility was noted in the apical anterior region.. She denies any chest pain or chest tightness. No unusual shortness of breath. Medications: Medication Review Details: Current Medications Acetaminophen (Acetaminophen 325 Mg Tablet) 650 mg PO Q6H PRN PRN Reason: Mild/Mod Pain Or Temp >/= 101 Aminophylline (Aminophylline 25 Mg/Ml Sdv 10 Ml) 25 mg IVP Q2M PRN PRN Reason: see dose instructions Stop: 04/25/22 06:55 Clopidogrel Bisulfate (Clopidogrel 75 Mg Tablet) 75 mg PO DAILY [facility] Last Admin: 04/23/22 08:55 Dose: 75 mg Dextrose (Dextrose 50% Syringe 50 Ml) 25 ml IVP ONCE PRN; Protocol PRN Reason: hypoglycemia protocol Dextrose (Dextrose 50% Syringe 50 Ml) 50 ml IVP PRN PRN; Protocol PRN Reason: hypoglycemia protocol Diltiazem HCl (Diltiazem 30 Mg Tablet) 30 mg PO 0900,2100 [facility] Last Admin: 04/23/22 20:47 Dose: 30 mg Enoxaparin Sodium (Enoxaparin 80 Mg/0.8 Ml Syringe) 70 mg SUBCUT Q12H [facility] Last Admin: 04/24/22 00:27 Dose: 70 mg Ferrous Gluconate (Ferrous Gluconate 324 Mg Tablet) 324 mg PO EVERY OTHER DAY [facility] Last Admin: 04/23/22 08:55 Dose: 324 mg Furosemide (Furosemide 40 Mg Tablet) 40 mg PO DAILY [facility] Last Admin: 04/23/22 08:55 Dose: 40 mg Glucagon (Glucagon 1 Mg/Ml Inj 1 Ml) 1 mg IM ONCE PRN; Protocol PRN Reason: Adult Acute Hypoglycemia Prot. Hydroxyzine Pamoate (Hydroxyzine 25 Mg Capsule) 25 mg PO ONCE PRN PRN Reason: ANXIETY Last Admin: 04/23/22 21:30 Dose: 25 mg Dextrose (D5w) 500 mls @ 100 mls/hr IV ONCE PRN; Protocol PRN Reason: Adult Acute Hypoglycemia Prot Insulin Human Lispro (Insulin Lispro 100 Unit/1 Ml) 0 unit SUBCUT WM&BEDTIME [facility]; Protocol Last Admin: 04/24/22 07:39 Dose: Not Given Isosorbide Mononitrate (Isosorbide Mononitrate Er 60 Mg Tablet) 60 mg PO DAILY [facility] Magnesium Oxide (Magnesium Oxide 400 Mg Tablet) 400 mg PO DAILY [facility] Last Admin: 04/23/22 08:55 Dose: 400 mg Nitroglycerin (Nitroglycerin 0.4 Mg Sublingual Tablet) 0.4 mg SUBLINGUAL Q5M PRN PRN Reason: chest pain Last Admin: 04/23/22 23:45 Dose: 0.4 mg Nitroglycerin (Nitroglycerin 0.4 Mg Sublingual Tablet) 0.4 mg SUBLINGUAL Q5M PRN PRN Reason: CHEST PAIN Stop: 04/25/22 06:55 Ondansetron HCl (Ondansetron 2 Mg/Ml Sdv 2 Ml) 4 mg IVP Q8H PRN PRN Reason: vomiting, or N/V if npo Ondansetron HCl (Ondansetron 2 Mg/Ml Sdv 2 Ml) 4 mg IVP Q2M PRN PRN Reason: NAUSEA Regadenoson (Regadenoson 0.4 Mg/5 Ml Syringe) 0.4 mg IVP ONCE PRN PRN Reason: Lexiscan Stress Test Sertraline HCl (Sertraline 50 Mg Tablet) 100 mg PO DAILY [facility] Last Admin: 04/23/22 08:54 Dose: 100 mg Sotalol HCl (Sotalol 80 Mg Tablet) 80 mg PO BID [facility] Last Admin: 04/23/22 18:07 Dose: 80 mg Vitals/I&O/Wt Last Vital Signs Temp 98.1 F 04/24/22 04:00 Pulse 83 04/24/22 05:41 Resp 14 04/24/22 04:00 BP 112/94 04/24/22 05:41 Pulse Ox 96 04/24/22 04:00 O2 Del Method 04/23/22 08:00 O2 Flow Rate 2 04/22/22 08:38 04/23/22 04/24/22 04/24/22 22:59 06:59 14:59 Intake Total 954.167 / 954.167 Output Total 500 / 2050 500 / 2550 Balance 454.167 / -1095.833 -500 / -1595.833 Physical Exam Narrative: GENERAL: The patient is alert and oriented times three. Not in any acute distress. HEENT: No significant pallor, icterus or lymphadenopathy.Oral cavity: There are no mucous membrane lesions. NECK: Trachea appears to be central. No masses noted. No JVD or thyromegaly appreciated. RESPIRATORY: Chest is symmetrical. No intercostals muscle retraction or any accessory muscle activation. There is no chest wall tenderness. Breath sounds are heard bilaterally. No rales or rhonchi heard. No evidence of any consolidation. BREASTS: Deferred. HEART: The heart sounds are normal. No S3 or S4. No significant murmurs. No pericardial rub ABDOMEN: No vessel pulsations or distention. No tenderness. No organomegaly appreciated. Bowel sounds are normally heard. : Deferred. RECTAL: Deferred. LYMPHATIC: No lymphadenopathy noted in the neck. EXTREMITIES: No edema or cyanosis. No clubbing. MUSCULOSKELETAL: No acute joint deformities or swelling SKIN: There are no significant rashes or ecchymosis NEUROPSYCHIATRIC: The patient is alert and oriented x3. Appears to be in a good mood. No tremors or rigidity noted. Data : 04/24/22 02:37 04/24/22 02:37 Other Labs: Laboratory Last Values WBC 6.7 10^3/uL (4.0-10.0) 04/24/22 02:37 RBC 4.20 10^6/uL (4.1-5.3) 04/24/22 02:37 Hgb 11.9 g/dL (11.5-15.3) 04/24/22 02:37 Hct 38.0 % (37.0-47.0) 04/24/22 02:37 MCV 90.5 fl (81-99) 04/24/22 02:37 MCH 28.3 pg (28.0-34.0) 04/24/22 02:37 MCHC 31.3 g/dL (30.0-36.0) 04/24/22 02:37 RDW 15.5 % (12.1-15.1) H 04/24/22 02:37 Plt Count 118 10^3/cmm (130-400) L 04/24/22 02:37 MPV 11.6 fL (7.4-10.4) H 04/24/22 02:37 Neut % (Auto) 59.3 % 04/24/22 02:37 Lymph % (Auto) 22.3 % 04/24/22 02:37 [place] % (Auto) 10.2 % 04/24/22 02:37 Eos % (Auto) 3.3 % 04/24/22 02:37 Baso % (Auto) 1.0 % 04/24/22 02:37 Neut # (Auto) 3.96 10^3/uL (1.8-7.7) 04/24/22 02:37 Lymph # (Auto) 1.5 10^3/uL (0.8-4.8) 04/24/22 02:37 [place] # (Auto) 0.7 10^3/uL (0.2-0.9) 04/24/22 02:37 Eos # (Auto) 0.2 10^3/uL (0.0-0.8) 04/24/22 02:37 Baso # (Auto) 0.1 10^3/uL (0.0-0.1) 04/24/22 02:37 Nucleated RBC % (auto) 0 % 04/24/22 02:37 Nucleated RBCs # 0.0 /100WBC 04/24/22 02:37 PT 14.00 SECONDS (12.1-14.9) 04/21/22 15:33 INR 1.05 (0.8-1.2) 04/21/22 15:33 APTT 28.2 SECONDS (23.9-36.7) 04/21/22 15:33 D-Dimer 2.26 ug/mIFEU (0-0.59) H 04/21/22 15:33 Sodium 141 mmol/L (136-145) 04/24/22 02:37 Potassium 3.9 mmol/L (3.5-5.1) 04/24/22 02:37 Chloride 104 mmol/L (98-107) 04/24/22 02:37 Carbon Dioxide 28 mmol/L (22-29) 04/24/22 02:37 Anion Gap 12.9 (5-19) 04/24/22 02:37 BUN 24 mg/dL (8-23) H 04/24/22 02:37 Creatinine 0.9 mg/dL (0.5-0.9) 04/24/22 02:37 GFR Calculation Not Reportable 04/24/22 02:37 Glucose 84 mg/dL (65-115) 04/24/22 02:37 POC Glucose 119 mg/dL (70-110) H 04/24/22 06:07 Calculated Osmolality 295 mOsm/kg (285-295) 04/24/22 02:37 Calcium 9.0 mg/dL (8.5-10.5) 04/24/22 02:37 Magnesium 2.1 mg/dL (1.7-2.3) 04/21/22 14:46 Iron 89 ug/dL (37-145) 04/23/22 13:22 TIBC 266 mcg/dl 04/23/22 13:22 % Saturation 33.4 % (20-50) 04/23/22 13:22 Unsat Iron Binding 177 ug/dL (112-347) 04/23/22 13:22 Total Bilirubin 0.3 mg/dL (0.15-1.2) 04/24/22 02:37 AST 12 U/L (0-32) 04/24/22 02:37 ALT 8 U/L (0-33) 04/24/22 02:37 Alkaline Phosphatase 75 U/L (35-105) 04/24/22 02:37 Troponin T Baseline 15 ng/L (0-10) H 04/23/22 13:22 Troponin T 120 Minute 13.13 ng/L (0-10) H 04/23/22 15:05 Delta Troponin T -1.87 ABS# (0-10) L 04/23/22 15:05 Troponin T Hi Sens 6Hr 11.21 ng/L (0-10) H 04/23/22 20:00 Troponin T Hi Sens 6Hr Delta -3.79 ng/L (0-12) L 04/23/22 20:00 NT-Pro-B Natriuret Pep 558 pg/mL (0-450) H 04/21/22 14:46 Total Protein 6.6 g/dL (6.6-8.7) 04/24/22 02:37 Albumin 3.7 g/dL (3.5-5.2) 04/24/22 02:37 Globulin 2.9 g/dL (1.3-4.6) 04/24/22 02:37 Triglycerides 141 mg/dL (0-150) 04/24/22 02:37 Cholesterol 207 mg/dL (0-200) H 04/24/22 02:37 LDL Cholesterol, Calc 143 mg/dL (50-129) H 04/24/22 02:37 Total VLDL Cholesterol 28 mg/dL (0-30) 04/24/22 02:37 HDL Cholesterol 36 mg/dL (60-100) L 04/24/22 02:37 Cholesterol/HDL Ratio 5.75 mg/dL (0.0-4.40) H 04/24/22 02:37 Lipase 45 U/L (13-60) 04/21/22 14:46 TSH 3.42 uIU/mL (0.27-4.20) 04/21/22 14:46 A&P Assessment and plan (1) Atrial fibrillation with RVR: The patient will be continued on the Betapace 80 mg p.o. twice daily and Cardizem 30 mg p.o. every 8 hours. Because of the low blood pressure, may hold off on the isosorbide. I also may start her on Eliquis 2.5 mg p.o. twice daily for oral anticoagulation. The possibility of bleeding was discussed with the patient and her daughter in detail which they understood well. Status: Acute (2) Orthostatic hypotension: She has significant improvement of the orthostatic hypotension. We will continue careful hydration. Status: Acute (3) Atherosclerotic heart disease of [place] coronary artery without angina pectoris: The Myocardial perfusion imaging findings are discussed with the patient. Since the patient was found to have no significant ischemia, it was thought to be appropriate to continue the medical treatment. This was discussed with the patient and her daughter in detail which is understood well. Status: Acute Qualifiers: [place] vs. transplanted heart: [place] heart Qualified Code(s): I25.10 - Atherosclerotic heart disease of [place] coronary artery without angina pectoris (4) Chronic thoracic aortic dissection: She has no specific symptoms, pertaining to this. May continue on the current follow-up schedule. Status: Acute (5) SOB (shortness of breath): This could be multifactorial. The atrial arrhythmia, emphysema, diastolic heart failure, etc. are contributing factors. Her symptoms are stable at this point. Status: Acute Plan If the heart rate stays under control, she may be discharged home Attestations Medical Necessity Statement*: Disposition as per the primary Coding Level of Care Code Acute Chemical Strength Tester for Chg Fwd History Expanded Problem Focused Exam Expanded Problem Focused Medical Decision Making Moderate Complexity Diagnoses Atrial fibrillation with RVR I48.91 Orthostatic hypotension I95.1 Atherosclerotic heart disease of [place] coronary artery without angina pectoris I25.10 [place] vs. transplanted heart: [place] heart Chronic thoracic aortic dissection I71.01 SOB (shortness of breath) R06.02
[2022-04-24] MEDS: ondansetron 2 mg/ML SDV 2 mL 4 MG IVP (08:29)
[2022-04-24] MEDS: regadenoson 0.4 Mg/5 ml Syringe IVP (08:29)
[2022-04-24] MEDS: magnesium oxide 400 mg tablet PO (09:47)
[2022-04-24] MEDS: sertraline 50 mg Tablet 100 MG PO (09:48)
[2022-04-24] MEDS: clopidogrel 75 mg Tablet PO (09:48)
[2022-04-24] MEDS: sotalol 80 mg Tablet PO ×2 (09:48→18:36)
[2022-04-24] MEDS: dilTIAZem 30 mg Tablet PO ×4 (09:51→22:19)
--- NOTE | 2022-04-24 11:52 | PC.CHAP ---
Pastoral Care Encounter/Spiritual Assessment Type of Contact [] Declined supervisor pumping visit [] Patient/Family/Request visit [] Outpatient visit [] Follow-up visit [] Physician referral [] Code/Alert [x]x Routine visit [] Staff referral [] Actively dying [] Patient sleeping [] Family support [] [] Out of room [] Palliative care [] [x] Receiving care in room [] Pre-surgical visit [] Trauma [] Long length of stay [] ICU visit [] Other: Relational/Emotional Strength [] Patient feels connected with others/family/visitors/staff [] Distress [] Loneliness/isolation [] Abandonment Spirituality of Patient [] Person of Margret [] Attends Temple of their Margret [] Believes in Prayer [] Reads Bible or Sikhism materials [] There are Spiritual issues to be addressed [employer] Interventions [] Prayer [] Active listening [] Non-anxious presence [] Spiritual/emotional support [] Crisis/trauma care [] Spiritual counseling [] Bereavement support [] Provided bereavement packet [] Provided Bible/devotional materials [] Provided toy/stuffed animal, coloring book to patient or family member [] Provided Communion [] Anointing/[place] [] Salvation [] Completed spiritual assessment [] Other: Impact on Illness or Injury [] Angry [] Fearful [] Anxious [] Often cries [] Exhaustion [] Unable to work [] Unable to attend adventist [] Unable to walk/stand [] Unable to read [] Unable to drive [] Unable to eat/drink [] Unable to sleep [] Unable to be with family [] Patient intubated [] Other: Summary Time spent with patient
[2022-04-24 12:16] LABS: Glucose Point of Care 304 mg/dL (70-110)
[2022-04-24] MEDS: insulin lispro 100 unit/1 mL SUBCUT ×3 (12:20→22:20)
--- NOTE | 2022-04-24 16:09 | P.PN_ITS ---
Subjective Subjective: No acute events overnight. Today morning on examination patient can just back from stress test. Heart rate slightly up but controlled with oral Cardizem. Heart rate trending up on minimal ambulation. Patient denies any symptoms other than headache and fogginess. Denies any nausea, vomiting, h eadache or chest pain. Lexiscan stress test very mildly positive with a plan to be treated with medi cations as per cardiology. Vitals/I&O/Wt Last Vital Signs Temp 97.5 F L 04/24/22 15:42 Pulse 73 04/24/22 15:42 Resp 16 04/24/22 15:42 BP 116/69 04/24/22 15:42 Pulse Ox 91 04/24/22 15:42 O2 Del Method 04/24/22 11:49 O2 Flow Rate 2 04/22/22 08:38 04/24/22 04/24/22 04/24/22 06:59 14:59 22:59 Intake Total 600 / 600 Output Total 500 / 2550 Balance -500 / -1595.833 600 / 600 Physical Exam Narrative: Daughter at bedside Const: COMMON NORMALS: patient oriented x3 and alert GENERAL APPEARANCE: cooperative ORIENTATION/CONSCIOUSNESS: Yes awake HENMT: COMMON NORMALS: oropharynx normal Neck/C-Spine: COMMON NORMALS: no JVD Resp: COMMON NORMALS: normal respiratory effort and clear to auscultation bilaterally AUSCULTATION: clear to auscultation bilaterally Cardio: COMMON NORMALS: no JVD, regular rhythm, S1 normal heart sound present, S2 normal heart sound present and No murmurs present (Cardio) RATE: tachycardic RHYTHM: regular rhythm and abnormal rhythm irregularly irregular HEART SOUNDS: S1 normal heart sound present and S2 normal heart sound present GI: COMMON NORMALS: Normal to inspection, nondistended, normoactive bowel sounds present, Soft to palpation and non-tender PALPATION: Yes Soft to palpation Extremity: COMMON NORMALS: no joint enlargement and no pedal edema Neuro: COMMON NORMALS: patient oriented x3 and moves all extremities SENSORIUM/ORIENTATION: Yes alert Skin: COMMON NORMALS: no rashes or lesions noted GENERAL SKIN EXAM: no rashes or lesions noted Data : 04/24/22 02:37 04/24/22 02:37 A&P Assessment and plan (1) Atrial fibrillation with RVR: Off Cardizem drip. Appreciate cardiology recommendations. Continue with sotalol 80 twice daily. Increase Cardizem to 30 mg 4 times daily. Will uptitrate keeping heart rate less than 100 history of bradycardia in the past. Monitor for bradycardia. Not on anticoagulation as an outpatient for many years. Continue with Lovenox 1 mg/kg body weight every 12 hourly. Status: Acute (2) Chest pain: History of CABG. History of positive stress test in 2019. Repeat stress test results appreciated. Plan to treat medically. Status: Acute (3) Elevated d-dimer: Suspect secondary to chronic dissection. No recent values, in the past very elevated compared to current with suspect secondary to dissection at the time. Started on Lovenox as above. Remains on room air. Status: Acute (4) Controlled type 2 diabetes mellitus with hyperglycemia, without long-term current use of insulin: Status: Chronic (5) Chronic diastolic heart failure: Status: Acute (6) Orthostatic hypotension: Has resolved now. Most likely secondary to overdiuresis. Overall since admission 1100 cc negative. Continue to hold off on all other antihypertensives including losartan and amlodipine. Continue with up titration of Cardizem depending on blood pressures and heart rate. Goal blood pressure less than 140/90 mmHg with mean artery pressure over 65. Hold off on Imdur for now. Status: Acute Plan Current diastolic CHF, not in exacerbation HTN DM2 COPD History of CVA ROBERTA HLD Thoracic aortic aneurysm Chronic aortic dissection Other current problems Analgesia: Tylenol as needed Glycemic control: Sliding scale at moderate dose protocol Nutrition: Cardiac diet, CODE STATUS: Limited resuscitation PUD prophylaxis: Famotidine DVT prophylaxis: Full dose Lovenox will suffice for DVT prophylaxis. Discharge planning: Discharge back home most likely within next 24 to 48 hours if stress test remains negative and patient orthostasis resolves. Home with possible home health Continue with care at CSU level This documentation was created by [employer] assistant womens volleyball coach software. Every effort was made to ensure accuracy of assistant womens volleyball coach. Any obvious errors or omissions should be clarified with the author of the document. Attestations Medical Necessity Statement*: Requires further hospitalization for management of A. fib with RVR being complicated by occasional orthostatic hypotension. Time Spent in Patient Care: Greater than 35 minutes Coding Level of Care Code Acute Home Energy Consultant for Awais Fwd Diagnoses Atrial fibrillation with RVR I48.91 Chest pain R07.9 Elevated d-dimer R79.89 Controlled type 2 diabetes mellitus with hyperglycemia, without long-term current use of insulin E11.65 Chronic diastolic heart failure I50.32 Orthostatic hypotension I95.1
[2022-04-24 16:14] LABS: Glucose Point of Care 150 mg/dL (70-110)
--- NOTE | 2022-04-24 17:02 | NMCV_ITS ---
NM ant perf SPECT r/s* [id number] Florence Mehta Age: 86 Gender: F : 1935 Exam Date: 04/24/2022 07:01 Ordering Phys: Andrei Alejandre MD ([email or web address]) Technologist: JAYRO Vargas Exam Location: [facility] Indications: CHEST PAIN STRESS TEST Please see separate stress test report in [facility] for full findings IMAGE PROTOCOL Rest/Stress 1 Lexiscan Day Radiopharmaceutical Dose (mCi) Administration Site Administered by Rest: Tc-99m 10.9 IV JAYRO Lopez Sestamibi Stress:Tc-99m 32.7 IV JAYRO Lopez Sestamibi Rest: 24-Apr-2022 60 Discovery 630 Stress: 24-Apr-2022 30 Discovery 630 0.4mg Lexiscan. Images obtained in supine and prone position. SPECT RESULTS Technical Quality: Excellent Raw Data Analysis: Normal Image Corrections: No attenuation or motion correction applied Summed Stress Score: 2 Summed Rest Score: 1 Summed Difference Score: 1 PERFUSION FINDINGS A small area of decreased visibility was noted in the apical lateral and apical anterior region. Subtle area of reversibility was noted in the apical lateral region. FUNCTIONAL RESULTS (calculated via Gated SPECT) Stress Image LV EF (%): 62 Stress EDV (mL):63 TID: 0.9 Stress ESV (mL):24 FUNCTIONAL FINDINGS: Segmental wall motion analysis revealed mild diffuse hypokinesia of the septum and LV apex IMPRESSIONS 1. Myocardial perfusion imaging revealing small area of persistent decreased tracer uptake in the apical lateral and apical anterior region, with a subtle area reversibility, suggesting myocardial scarring with ischemia in the distribution of the left circumflex artery. 2. Normal LV ejection fraction of 62%. 3. LV wall motion analysis revealing mild diffuse hypokinesia of the septum and LV apex. 4. Normal LV volume. Compared to the study from 03/03/2020, the ischemic burden remains unchanged but the location is in the apical lateral region while it was apical anterior with the previous study. Dr Andrei Alejandre MD FAC (Electronically Signed) Final Date: 24 April 2022 13:06 S
[2022-04-24 20:38] LABS: Glucose Point of Care 259 mg/dL (70-110)
[2022-04-24] MEDS: apixaban 5 mg Tablet 2.5 MG PO (22:19)
[2022-04-25] VITALS (11 sets, daily range): BP systolic 97–130; BP diastolic 53–89; PULSE 72–98; RESP 16–20; TEMP 36.5–36.9; O2SAT 90–95
[2022-04-25 04:20] LABS: Basophils # 0.1 10^3/uL (0.0-0.1); Eosinophils # 0.2 10^3/uL (0.0-0.8); Eosinophils % 3.6 %; Hematocrit 38.9 % (37.0-47.0); Hemoglobin 12.2 g/dL (11.5-15.3); Lymphocytes # 1.6 10^3/uL (0.8-4.8); Lymphocytes % 26.2 %; Mean Corpuscular HGB Conc 31.4 g/dL (30.0-36.0); Mean Corpuscular Hemoglobin 29.2 pg (28.0-34.0); Mean Corpuscular Volume 93.1 fl (81-99); Mean Platelet Volume 11.3 fL (7.4-10.4); Monocytes # 0.7 10^3/uL (0.2-0.9); Monocytes % 11.2 %; Neutrophils # 3.37 10^3/uL (1.8-7.7); Neutrophils % 54.4 %; Nucleated Red Blood Cells % 0 %; Platelet Count 118 10^3/cmm (130-400); Red Blood Count 4.18 10^6/uL (4.1-5.3); Red Cell Distribution Width 15.9 % (12.1-15.1); White Blood Count 6.2 10^3/uL (4.0-10.0)
[2022-04-25 04:53] LABS: Alanine Aminotransferase 12 U/L (0-33); Albumin Level 3.6 g/dL (3.5-5.2); Alkaline Phosphatase 80 U/L (35-105); Aspartate Amino Transferase 17 U/L (0-32); Blood Urea Nitrogen 27 mg/dL (8-23); Calcium 8.9 mg/dL (8.5-10.5); Carbon Dioxide 27 mmol/L (22-29); Chloride 101 mmol/L (98-107); Globulin 2.9 g/dL (1.3-4.6); Glucose 122 mg/dL (65-115); Osmolality Calculated 290 mOsm/kg (285-295); Sodium 137 mmol/L (136-145); Total Bilirubin 0.3 mg/dL (0.15-1.2); Total Protein 6.5 g/dL (6.6-8.7)
[2022-04-25 04:54] LABS: Anion Gap 13.4 (5-19); Creatinine Clr Calc Pharmacy 40.1543; Potassium 4.4 mmol/L (3.5-5.1)
[2022-04-25 06:33] LABS: Glucose Point of Care 157 mg/dL (70-110)
[2022-04-25 07:58] LABS: Glucose Point of Care 186 mg/dL (70-110)
--- NOTE | 2022-04-25 08:11 | PM.PN ---
Subjective Subjective: Syndrome was found to have heart rate in the normal range was advised. However she continues to have orthostatic hypotension and atrial fibrillation rapid ventricular rate, she gets up and move around. Medications: Medication Review Details: Current Medications Acetaminophen (Acetaminophen 325 Mg Tablet) 650 mg PO Q6H PRN PRN Reason: Mild/Mod Pain Or Temp >/= 101 Apixaban (Apixaban 5 Mg Tablet) 2.5 mg PO BID@0900,2100 [facility] Last Admin: 04/24/22 22:19 Dose: 2.5 mg Clopidogrel Bisulfate (Clopidogrel 75 Mg Tablet) 75 mg PO DAILY [facility] Last Admin: 04/24/22 09:48 Dose: 75 mg Dextrose (Dextrose 50% Syringe 50 Ml) 25 ml IVP ONCE PRN; Protocol PRN Reason: hypoglycemia protocol Dextrose (Dextrose 50% Syringe 50 Ml) 50 ml IVP PRN PRN; Protocol PRN Reason: hypoglycemia protocol Diltiazem HCl (Diltiazem 30 Mg Tablet) 30 mg PO QID [facility] Last Admin: 04/24/22 22:19 Dose: 30 mg Ferrous Gluconate (Ferrous Gluconate 324 Mg Tablet) 324 mg PO EVERY OTHER DAY [facility] Last Admin: 04/23/22 08:55 Dose: 324 mg Furosemide (Furosemide 40 Mg Tablet) 40 mg PO DAILY [facility] Last Admin: 04/23/22 08:55 Dose: 40 mg Glucagon (Glucagon 1 Mg/Ml Inj 1 Ml) 1 mg IM ONCE PRN; Protocol PRN Reason: Adult Acute Hypoglycemia Prot. Hydroxyzine Pamoate (Hydroxyzine 25 Mg Capsule) 25 mg PO ONCE PRN PRN Reason: ANXIETY Last Admin: 04/23/22 21:30 Dose: 25 mg Dextrose (D5w) 500 mls @ 100 mls/hr IV ONCE PRN; Protocol PRN Reason: Adult Acute Hypoglycemia Prot Insulin Human Lispro (Insulin Lispro 100 Unit/1 Ml) 0 unit SUBCUT WM&BEDTIME [facility]; Protocol Last Admin: 04/24/22 22:20 Dose: 6 unit Isosorbide Mononitrate (Isosorbide Mononitrate Er 60 Mg Tablet) 60 mg PO DAILY [facility] Magnesium Oxide (Magnesium Oxide 400 Mg Tablet) 400 mg PO DAILY [facility] Last Admin: 04/24/22 09:47 Dose: 400 mg Nitroglycerin (Nitroglycerin 0.4 Mg Sublingual Tablet) 0.4 mg SUBLINGUAL Q5M PRN PRN Reason: chest pain Last Admin: 04/23/22 23:45 Dose: 0.4 mg Ondansetron HCl (Ondansetron 2 Mg/Ml Sdv 2 Ml) 4 mg IVP Q8H PRN PRN Reason: vomiting, or N/V if npo Ondansetron HCl (Ondansetron 2 Mg/Ml Sdv 2 Ml) 4 mg IVP Q2M PRN PRN Reason: NAUSEA Last Admin: 04/24/22 08:29 Dose: 4 mg Sertraline HCl (Sertraline 50 Mg Tablet) 100 mg PO DAILY [facility] Last Admin: 04/24/22 09:48 Dose: 100 mg Sotalol HCl (Sotalol 80 Mg Tablet) 80 mg PO BID [facility] Last Admin: 04/24/22 18:36 Dose: 80 mg Vitals/I&O/Wt Last Vital Signs Temp 97.9 F 04/25/22 07:25 Pulse 81 04/25/22 07:25 Resp 20 H 04/25/22 07:25 BP 118/81 04/25/22 07:25 Pulse Ox 95 04/25/22 08:00 O2 Del Method 04/25/22 08:00 O2 Flow Rate 2 04/25/22 08:00 04/24/22 04/25/22 04/25/22 22:59 06:59 14:59 Intake Total 720 / 1320 Output Total 240 / 240 Balance 720 / 1320 -240 / 1080 Physical Exam Narrative: GENERAL: The patient is alert and oriented times three. Not in any acute distress. HEENT: No significant pallor, icterus or lymphadenopathy.Oral cavity: There are no mucous membrane lesions. NECK: Trachea appears to be central. No masses noted. No JVD or thyromegaly appreciated. RESPIRATORY: Chest is symmetrical. No intercostals muscle retraction or any accessory muscle activation. There is no chest wall tenderness. Breath sounds are heard bilaterally. No rales or rhonchi heard. No evidence of any consolidation. BREASTS: Deferred. HEART: The heart sounds are normal. No S3 or S4. Short systolic murmur in the left sternal border. No diastolic murmurs. No pericardial rub ABDOMEN: No vessel pulsations or distention. No tenderness. No organomegaly appreciated. Bowel sounds are normally heard. : Deferred. RECTAL: Deferred. LYMPHATIC: No lymphadenopathy noted in the neck. EXTREMITIES: No edema or cyanosis. No clubbing. MUSCULOSKELETAL: No acute joint deformities or swelling SKIN: There are no significant rashes or ecchymosis NEUROPSYCHIATRIC: The patient is alert and oriented x3. Appears to be in a good mood. No tremors or rigidity noted. Data : 04/25/22 03:56 04/25/22 03:56 Other Labs: Laboratory Last Values WBC 6.2 10^3/uL (4.0-10.0) 04/25/22 03:56 RBC 4.18 10^6/uL (4.1-5.3) 04/25/22 03:56 Hgb 12.2 g/dL (11.5-15.3) 04/25/22 03:56 Hct 38.9 % (37.0-47.0) 04/25/22 03:56 MCV 93.1 fl (81-99) 04/25/22 03:56 MCH 29.2 pg (28.0-34.0) 04/25/22 03:56 MCHC 31.4 g/dL (30.0-36.0) 04/25/22 03:56 RDW 15.9 % (12.1-15.1) H 04/25/22 03:56 Plt Count 118 10^3/cmm (130-400) L 04/25/22 03:56 MPV 11.3 fL (7.4-10.4) H 04/25/22 03:56 Neut % (Auto) 54.4 % 04/25/22 03:56 Lymph % (Auto) 26.2 % 04/25/22 03:56 [place] % (Auto) 11.2 % 04/25/22 03:56 Eos % (Auto) 3.6 % 04/25/22 03:56 Baso % (Auto) 1.0 % 04/25/22 03:56 Neut # (Auto) 3.37 10^3/uL (1.8-7.7) 04/25/22 03:56 Lymph # (Auto) 1.6 10^3/uL (0.8-4.8) 04/25/22 03:56 [place] # (Auto) 0.7 10^3/uL (0.2-0.9) 04/25/22 03:56 Eos # (Auto) 0.2 10^3/uL (0.0-0.8) 04/25/22 03:56 Baso # (Auto) 0.1 10^3/uL (0.0-0.1) 04/25/22 03:56 Nucleated RBC % (auto) 0 % 04/25/22 03:56 Nucleated RBCs # 0.0 /100WBC 04/25/22 03:56 PT 14.00 SECONDS (12.1-14.9) 04/21/22 15:33 INR 1.05 (0.8-1.2) 04/21/22 15:33 APTT 28.2 SECONDS (23.9-36.7) 04/21/22 15:33 D-Dimer 2.26 ug/mIFEU (0-0.59) H 04/21/22 15:33 Sodium 137 mmol/L (136-145) 04/25/22 03:56 Potassium 4.4 mmol/L (3.5-5.1) 04/25/22 03:56 Chloride 101 mmol/L (98-107) 04/25/22 03:56 Carbon Dioxide 27 mmol/L (22-29) 04/25/22 03:56 Anion Gap 13.4 (5-19) 04/25/22 03:56 BUN 27 mg/dL (8-23) H 04/25/22 03:56 Creatinine 1.0 mg/dL (0.5-0.9) H 04/25/22 03:56 GFR Calculation Not Reportable 04/25/22 03:56 Glucose 122 mg/dL (65-115) H 04/25/22 03:56 POC Glucose 186 mg/dL (70-110) H 04/25/22 07:30 Calculated Osmolality 290 mOsm/kg (285-295) 04/25/22 03:56 Calcium 8.9 mg/dL (8.5-10.5) 04/25/22 03:56 Magnesium 2.1 mg/dL (1.7-2.3) 04/21/22 14:46 Iron 89 ug/dL (37-145) 04/23/22 13:22 TIBC 266 mcg/dl 04/23/22 13:22 % Saturation 33.4 % (20-50) 04/23/22 13:22 Unsat Iron Binding 177 ug/dL (112-347) 04/23/22 13:22 Total Bilirubin 0.3 mg/dL (0.15-1.2) 04/25/22 03:56 AST 17 U/L (0-32) 04/25/22 03:56 ALT 12 U/L (0-33) 04/25/22 03:56 Alkaline Phosphatase 80 U/L (35-105) 04/25/22 03:56 Troponin T Baseline 15 ng/L (0-10) H 04/23/22 13:22 Troponin T 120 Minute 13.13 ng/L (0-10) H 04/23/22 15:05 Delta Troponin T -1.87 ABS# (0-10) L 04/23/22 15:05 Troponin T Hi Sens 6Hr 11.21 ng/L (0-10) H 04/23/22 20:00 Troponin T Hi Sens 6Hr Delta -3.79 ng/L (0-12) L 04/23/22 20:00 NT-Pro-B Natriuret Pep 558 pg/mL (0-450) H 04/21/22 14:46 Total Protein 6.5 g/dL (6.6-8.7) L 04/25/22 03:56 Albumin 3.6 g/dL (3.5-5.2) 04/25/22 03:56 Globulin 2.9 g/dL (1.3-4.6) 04/25/22 03:56 Triglycerides 141 mg/dL (0-150) 04/24/22 02:37 Cholesterol 207 mg/dL (0-200) H 04/24/22 02:37 LDL Cholesterol, Calc 143 mg/dL (50-129) H 04/24/22 02:37 Total VLDL Cholesterol 28 mg/dL (0-30) 04/24/22 02:37 HDL Cholesterol 36 mg/dL (60-100) L 04/24/22 02:37 Cholesterol/HDL Ratio 5.75 mg/dL (0.0-4.40) H 04/24/22 02:37 Lipase 45 U/L (13-60) 04/21/22 14:46 TSH 3.42 uIU/mL (0.27-4.20) 04/21/22 14:46 A&P Assessment and plan (1) Atrial fibrillation with RVR: Patient may continue on the Cardizem 30 mg p.o. every 8 hours. Continue monitoring the telemetry. Status: Acute (2) Orthostatic hypotension: I may start the patient on pyridostigmine 60 mg p.o. every 8 hours.-Blood pressure needs to be closely monitored. Status: Acute (3) Atherosclerotic heart disease of [place] coronary artery without angina pectoris: Since the patient has no specific symptoms of coronary insufficiency, may not require any further investigations at this time. Advised to continue on the current medications. Importance of compliance to diet and exercise were discussed which the patient seems to understand well. Status: Acute Qualifiers: [place] vs. transplanted heart: [place] heart Qualified Code(s): I25.10 - Atherosclerotic heart disease of [place] coronary artery without angina pectoris (4) Mixed hyperlipidemia: Continue on the current management. Follow-up evaluation as scheduled. Status: Chronic (5) Controlled type 2 diabetes mellitus with hyperglycemia, without long-term current use of insulin: Continue on the current management. Follow-up evaluation as scheduled. Status: Chronic Plan Other problems are Chronic renal insufficiency Chronic aortic dissection If she has improvement of the orthostatic hypotension with heart rate control, may be discharged home tomorrow. Discussed with Dr. Giovani Larios Medical Necessity Statement*: Patient requires continued hospital stay for close monitoring and further management Coding Level of Care Code Acute Dragline Mechanic for Chg Fwd History Expanded Problem Focused Exam Expanded Problem Focused Medical Decision Making Moderate Complexity Diagnoses Atrial fibrillation with RVR I48.91 Orthostatic hypotension I95.1 Atherosclerotic heart disease of [place] coronary artery without angina pectoris I25.10 [place] vs. transplanted heart: [place] heart Mixed hyperlipidemia E78.2 Controlled type 2 diabetes mellitus with hyperglycemia, without long-term current use of insulin E11.65
--- NOTE | 2022-04-25 09:21 | P.DS_ITS ---
Discharge Providers Date of Admission: 04/22/22 15:59 Date of Discharge: April 25, 2022 Attending Provider at Admission: Silvino Arreguin Attending Provider at Discharge: Jake Matute MD Consults: Cardiology: Dr. Alejandre Primary Care Provider: ALFONSO Schmitt Diagnoses at Discharge Discharge Diagnosis (1) Atrial fibrillation with RVR: Status: Acute (2) Orthostatic hypotension: Status: Acute (3) Atherosclerotic heart disease of [place] coronary artery without angina pectoris: Status: Acute Qualifiers: [place] vs. transplanted heart: [place] heart Qualified Code(s): I25.10 - Atherosclerotic heart disease of [place] coronary artery without angina pectoris Permanent problem details: Recent nuclear stress test, 03/03/2020 demonstrated reversible ischemia, small area, LAD distribution (4) Mixed hyperlipidemia: Status: Chronic (5) Controlled type 2 diabetes mellitus with hyperglycemia, without long-term current use of insulin: Status: Chronic Reason for Visit Reason for Visit: irregular hr Hospital Course Hospital Course Florence Mehta is a 86 year old female with past medical history of paroxysmal atrial fibrillation, heart failure with preserved ejection fraction, history of bradycardia, chronic descending thoracic aortic dissection and CAD, ascending aortic aneurysm 5 cm in diameter, s/p CABG, s/p PCI of vein graft to circumflex in June 2015, type 2 diabetes mellitus, dyslipidemia and hypertension. She is here with at least three day h/o tachycardia with HR in 130's-140's on pulse ox. She also developed some CP and SOB and presented to ER. She was given metoporlol IV f/b cardizem gtt. She remained briefly on cardizem drip. She is currently in A. fib but is rate controlled mostly. She feels better. She has not been on anticoagulation for last several years. She was previously on sotalol 160 mg BID that was cut back to 80 mg BID for bradycardia. She has h/o TIA per patient. She lost her suddenly last year and since then her daughter Florence Duron has been taking care of her meds. Patient's hospitalization was complicated by developing orthostatic hypotension for which her multiple antihypertensives were withheld. For possibility of ischemic etiology further chest pressure given her slightly positive cardiac stress test in 2019 cardiology was consulted and she underwent repeat Lexiscan stress test on 2021 which showed stable abnormality to stress test hence medical management was decided. She was started on oral Cardizem for A. fib with RVR which was gently titrated up given her history of significant bradycardia. Patient's blood pressure and heart rate has been stable on Cardizem 30 mg twice daily along with sotalol 80 mg twice daily. Multiple antihypertensives including losartan, amlodipine has been withheld. She is to take Lasix 40 mg daily for now going forward. She is to repeat her blood pressures checks and heart rate monitoring at least twice daily at home and maintain a blood pressure diary and follow-up with a primary care provider and [facility] in the next 4 to 7 days. Event monitor was also requested on discharge to monitor for A. fib with RVR along with significant bradycardia so that further medication adjustments can be done. For anticoagulation given significant risk of stroke with history of atrial fibrillation she was started on Eliquis 2.5 mg morning and evening after discussing merits versus demerits of anticoagulation with family and patient herself. Physical Exam Narrative: Daughter at bedside Const: COMMON NORMALS: patient oriented x3 and alert GENERAL APPEARANCE: cooperative ORIENTATION/CONSCIOUSNESS: Yes awake HENMT: COMMON NORMALS: oropharynx normal Neck/C-Spine: COMMON NORMALS: no JVD Resp: COMMON NORMALS: normal respiratory effort and clear to auscultation bilaterally AUSCULTATION: clear to auscultation bilaterally Cardio: COMMON NORMALS: no JVD, regular rhythm, S1 normal heart sound present, S2 normal heart sound present and No murmurs present (Cardio) RATE: ta chycardic RHYTHM: regular rhythm and abnormal rhythm irregularly irregular HEART SOUNDS: S1 normal heart sound present and S2 normal heart sound present GI: COMMON NORMALS: Normal to inspection, nondistended, normoactive bowel sounds present, Soft to palpation and non-tender PALPATION: Yes Soft to palpation Extremity: COMMON NORMALS: no joint enlargement and no pedal edema Neuro: COMMON NORMALS: patient oriented x3 and moves all extremities SENSORIUM/ORIENTATION: Yes alert Skin: COMMON NORMALS: no rashes or lesions noted GENERAL SKIN EXAM: no rashes or lesions noted Discharge Data Studies Completed and Pending Completed Studies During Hospitalization Category Date Time Status CTA chest [CT angio chest PE protcl [id number]] Stat Cat Scan 04/21/22 16:02 C ompleted Sestamibi Stress Test Request Routine Exams 04/23/22 17:02 Draft XR chest 1V portable [id number] Stat Exams 04/21/22 14:38 Completed NM ant perf SPECT r/s* [id number] Routine Nuc Med 04/24/22 17:02 Completed CV. echo complete* [id number] Routine Ultrasound 04/21/22 20:08 Completed Radiology Impressions Chest X-Ray 04/21/22 14:38 IMPRESSION: 1. Possible mild cardiomegaly.Heart size not optimally evaluated with a single AP view of the chest. 2. Thoracic aorta is tortuous and contains calcified plaque. Chest CTA 04/21/22 16:02 IMPRESSION: 1. Ascending thoracic aorta is aneurysmal measuring 5.0 cm in the transverse dimension. Descending thoracic aorta is aneurysmal measuring 4.9 cm in the trans verse dimension. No evidence for rupture. In general, aortic diameters of 5.[address] patients at high risk for rupture and should be considered for intervention. If connective tissue diseases such as Marfan or Taniya-Danlos disease is known, then a diameter of 5 cm prompts consideration of prophylactic aortic root replacement. 2. 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 3. Multivessel atherosclerotic disease which involves the coronary arteries. 4. No evidence for pulmonary embolus. Echocardiogram: CONCLUSIONS ?1. Normal left ventricular cavity size and systolic function. ?Left ventricular ejection fraction is estimated at 55%. No ?regional wall motion abnormalities. ?2. Normal right ventricular size and systolic function. ?3. Trace to mild aortic valve regurgitation. ?4. Moderate tricuspid valve regurgitation. ?5. When compared to previous echocardiogram dated 08/09/2020, ?tricuspid and mitral valve regurgitation may have decreased ?somewhat. ?Esha Martin MD ?(Electronically Signed) ?Final Date:? ? ? 22 April 2022 ? 13:43 Laboratory Results WBC 6.2 10^3/uL (4.0-10.0) 04/25/22 03:56 RBC 4.18 10^6/uL (4.1-5.3) 04/25/22 03:56 Hgb 12.2 g/dL (11.5-15.3) 04/25/22 03:56 Hct 38.9 % (37.0-47.0) 04/25/22 03:56 MCV 93.1 fl (81-99) 04/25/22 03:56 MCH 29.2 pg (28.0-34.0) 04/25/22 03:56 MCHC 31.4 g/dL (30.0-36.0) 04/25/22 03:56 RDW 15.9 % (12.1-15.1) H 04/25/22 03:56 Plt Count 118 10^3/cmm (130-400) L 04/25/22 03:56 MPV 11.3 fL (7.4-10.4) H 04/25/22 03:56 Neut % (Auto) 54.4 % 04/25/22 03:56 Lymph % (Auto) 26.2 % 04/25/22 03:56 [place] % (Auto) 11.2 % 04/25/22 03:56 Eos % (Auto) 3.6 % 04/25/22 03:56 Baso % (Auto) 1.0 % 04/25/22 03:56 Neut # (Auto) 3.37 10^3/uL (1.8-7.7) 04/25/22 03:56 Lymph # (Auto) 1.6 10^3/uL (0.8-4.8) 04/25/22 03:56 [place] # (Auto) 0.7 10^3/uL (0.2-0.9) 04/25/22 03:56 Eos # (Auto) 0.2 10^3/uL (0.0-0.8) 04/25/22 03:56 Baso # (Auto) 0.1 10^3/uL (0.0-0.1) 04/25/22 03:56 Nucleated RBC % (auto) 0 % 04/25/22 03:56 Nucleated RBCs # 0.0 /100WBC 04/25/22 03:56 PT 14.00 SECONDS (12.1-14.9) 04/21/22 15:33 INR 1.05 (0.8-1.2) 04/21/22 15:33 APTT 28.2 SECONDS (23.9-36.7) 04/21/22 15:33 D-Dimer 2.26 ug/mIFEU (0-0.59) H 04/21/22 15:33 Sodium 137 mmol/L (136-145) 04/25/22 03:56 Potassium 4.4 mmol/L (3.5-5.1) 04/25/22 03:56 Chloride 101 mmol/L (98-107) 04/25/22 03:56 Carbon Dioxide 27 mmol/L (22-29) 04/25/22 03:56 Anion Gap 13.4 (5-19) 04/25/22 03:56 BUN 27 mg/dL (8-23) H 04/25/22 03:56 Creatinine 1.0 mg/dL (0.5-0.9) H 04/25/22 03:56 GFR Calculation Not Reportable 04/25/22 03:56 Glucose 122 mg/dL (65-115) H 04/25/22 03:56 POC Glucose 186 mg/dL (70-110) H 04/25/22 07:30 Calculated Osmolality 290 mOsm/kg (285-295) 04/25/22 03:56 Calcium 8.9 mg/dL (8.5-10.5) 04/25/22 03:56 Magnesium 2.1 mg/dL (1.7-2.3) 04/21/22 14:46 Iron 89 ug/dL (37-145) 04/23/22 13:22 TIBC 266 mcg/dl 04/23/22 13:22 % Saturation 33.4 % (20-50) 04/23/22 13:22 Unsat Iron Binding 177 ug/dL (112-347) 04/23/22 13:22 Total Bilirubin 0.3 mg/dL (0.15-1.2) 04/25/22 03:56 AST 17 U/L (0-32) 04/25/22 03:56 ALT 12 U/L (0-33) 04/25/22 03:56 Alkaline Phosphatase 80 U/L (35-105) 04/25/22 03:56 Troponin T Baseline 15 ng/L (0-10) H 04/23/22 13:22 Troponin T 120 Minute 13.13 ng/L (0-10) H 04/23/22 15:05 Delta Troponin T -1.87 ABS# (0-10) L 04/23/22 15:05 Troponin T Hi Sens 6Hr 11.21 ng/L (0-10) H 04/23/22 20:00 Troponin T Hi Sens 6Hr Delta -3.79 ng/L (0-12) L 04/23/22 20:00 NT-Pro-B Natriuret Pep 558 pg/mL (0-450) H 04/21/22 14:46 Total Protein 6.5 g/dL (6.6-8.7) L 04/25/22 03:56 Albumin 3.6 g/dL (3.5-5.2) 04/25/22 03:56 Globulin 2.9 g/dL (1.3-4.6) 04/25/22 03:56 Triglycerides 141 mg/dL (0-150) 04/24/22 02:37 Cholesterol 207 mg/dL (0-200) H 04/24/22 02:37 LDL Cholesterol, Calc 143 mg/dL (50-129) H 04/24/22 02:37 Total VLDL Cholesterol 28 mg/dL (0-30) 04/24/22 02:37 HDL Cholesterol 36 mg/dL (60-100) L 04/24/22 02:37 Cholesterol/HDL Ratio 5.75 mg/dL (0.0-4.40) H 04/24/22 02:37 Lipase 45 U/L (13-60) 04/21/22 14:46 TSH 3.42 uIU/mL (0.27-4.20) 04/21/22 14:46 Vitals Last Vital Signs Temp 97.9 F 04/25/22 07:25 Pulse 81 04/25/22 07:25 Resp 20 H 04/25/22 07:25 BP 118/81 04/25/22 07:25 Pulse Ox 95 04/25/22 08:00 O2 Del Method 04/25/22 08:00 O2 Flow Rate 2 04/25/22 08:00 Discharge Plan Discharge Patient Disposition: Home Condition: Stable Prescriptions: New Eliquis 5 mg Tablet 2.5 mg PO BID@0900,2100 Qty: 30 0RF diltiazem HCl 30 mg Tablet 30 mg PO TID Qty: 90 0RF Continued ascorbate calcium (vitamin C) 500 mg tablet 500 mg PO DAILY [place] 450 mg capsule 450 mg PO DAILY (DME) lancets 30 gauge misc See Rx Instructions .ROUTE .MEDSUPPLY Qty: 25 Rx Instructions: As directed (DME) blood sugar diagnostic Strip See Rx Instructions .ROUTE .MEDSUPPLY Qty: 10 Rx Instructions: As directed magnesium oxide 400 mg (241.3 mg magnesium) tablet 400 mg PO DAILY Qty: 90 1RF omega-3 fatty acids [Fish Oil Concentrate] 1,000 mg capsule 2,000 mg PO BID Qty: 360 1RF (DME) syringe with needle 3 mL 22 gauge x 1 syringe See Rx Instructions .ROUTE .MEDSUPPLY Qty: 1 5RF Rx Instructions: use with Vitamin B12 every 6 weeks Januvia 100 mg tablet 100 mg PO QDAY Qty: 90 1RF Rx Instructions: Please fill on 340B sotalol 80 mg tablet 80 mg PO BID sertraline 50 mg tablet 100 mg PO DAILY Qty: 90 1RF glimepiride 4 mg tablet 4 mg PO QAM Qty: 90 1RF nitroglycerin 0.4 mg tablet, sublingual 0.4 mg SUBLINGUAL Q5M PRN (Reason: chest pain) Qty: 1 2RF Rx Instructions: do not exceed 3 doses per episode clopidogrel 75 mg tablet 75 mg PO DAILY Qty: 90 3RF potassium chloride 10 mEq tablet,ER particles/crystals 20 meq PO DIRECTED Qty: 180 3RF Rx Instructions: Take 1 tab twice daily on Mon,Wed,Fri and 1 tab daily on ,,,Singh ferrous gluconate 324 mg (38 mg iron) tablet 324 mg PO EVERY OTHER DAY metformin 500 mg tablet 500 mg PO QPM cyanocobalamin (vitamin B-12) 1,000 mcg/mL solution 1,000 mcg IM Q30D Farxiga 10 mg tablet 10 mg PO DAILY Changed Lasix 40 mg tablet 40 mg PO DAILY Qty: 30 0RF Discontinued isosorbide mononitrate 120 mg tablet extended release 24 hr 120 mg PO DAILY Qty: 90 1RF losartan 25 mg tablet 25 mg PO DAILY Qty: 90 3RF amlodipine 10 mg tablet 10 mg PO DAILY Qty: 90 3RF Discharge Orders: Discharge Order (Routine); Ordered 04/25/22 Ordered By: Jake Matute Other Ambulatory Orders: MCT/Event Monitor 21 Days (Routine) Timeframe: 1 Week Facility: [facility] - Location: Radiology Ordered By: Jake Matute Referrals: Andressa Cee FNP [Primary Care Provider] - 05/01/22 10:30 am Andrei Alejandre MD [Physician] - 05/31/22 11:00 am Lashay Schrader FNP [Nurse Practitioner] - 05/02/22 1:30 pm Discharge Diet: Cardiac Discharge Activity: Resume usual activity and Increase activity as tolerated Patient Instructions: Diltiazem (By mouth), Apixaban (By mouth), A-fib (Atrial Fibrillation) (GEN), Opioid Safety Activity Restrictions/Additional Instructions: Multiple medication changes have been done. Please do not take amlodipine, Imdur, losartan for now. Please take Cardizem 30 mg 3 times a day. Continue taking your sotalol as before. Please check your blood pressure and heart rate twice daily and maintain a blood pressure diary and follow-up with her primary care provider and nurse practitioner at [facility] within next 1 week. Please follow-up with Dr. Alejandre from cardiology in 2 weeks. APPOINTMENT FOR HEART MONITOR AT [facility] regarding an event monitor ON MAY 08 AT 10:15 Discharge Attestations Time Spent in Discharge Care*: greater than 30 min Specific Discharge Activities: educating patient, educating and/or supporting family/caregiver, discussing with pcp/other providers, discussing with case management director/social workers/dc planners, documenting/other paperwork and evaluating patient/reviewing data Status at Discharge: Cognitive status at discharge: cognitively intact , Behavioral status at discharge: cooperative , Functional status at discharge: independent ambulation , Overall status at discharge: patient is progressing back to baseline Quality Metrics Clinical Quality Measures [ No reported AMI, CVA or VTE this stay] Coding Level of Care Code Acute Chg FW DC note Exam Comprehensive Diagnoses Atrial fibrillation with RVR I48.91 Orthostatic hypotension I95.1 Atherosclerotic heart disease of [place] coronary artery without angina pectoris I25.10 [place] vs. transplanted heart: [place] heart Mixed hyperlipidemia E78.2 Controlled type 2 diabetes mellitus with hyperglycemia, without long-term current use of insulin E11.65
[2022-04-25] MEDS: apixaban 5 mg Tablet 2.5 MG PO ×2 (09:39→21:29)
[2022-04-25] MEDS: dilTIAZem 30 mg Tablet PO ×3 (09:40→21:29)
[2022-04-25] MEDS: sotalol 80 mg Tablet PO ×2 (09:40→17:21)
[2022-04-25] MEDS: magnesium oxide 400 mg tablet PO (09:40)
[2022-04-25] MEDS: ferrous gluconate 324 mg Tablet PO (09:41)
[2022-04-25] MEDS: sertraline 50 mg Tablet 100 MG PO (09:42)
[2022-04-25] MEDS: clopidogrel 75 mg Tablet PO (10:10)
[2022-04-25] MEDS: insulin lispro 100 unit/1 mL SUBCUT ×4 (10:11→21:29)
[2022-04-25 12:10] LABS: Glucose Point of Care 190 mg/dL (70-110)
[2022-04-25] MEDS: pyridostigmine 60 mg Tablet PO ×2 (12:17→17:21)
--- NOTE | 2022-04-25 13:57 | PM.PN ---
Subjective Subjective: No cramps overnight. Patient has remained hemodynamically stable and afebrile. Today morning examination patient slightly anxious. Patient was to be discharged today but later discharge was canceled as prior to discharge on orthostatics she was found to be tachycardic again with heart rate going up to 130s on standing up. Patient denies any nausea, vomiting, headache. Vitals/I&O/Wt Last Vital Signs Temp 97.7 F 04/25/22 12:00 Pulse 84 04/25/22 12:00 Resp 18 04/25/22 12:00 BP 130/62 04/25/22 12:00 Pulse Ox 94 04/25/22 12:00 O2 Del Method 04/25/22 12:00 O2 Flow Rate 2 04/25/22 08:00 04/24/22 04/25/22 04/25/22 22:59 06:59 14:59 Intake Total 720 / 1320 1080 / 1080 Output Total 240 / 240 Balance 720 / 1320 -240 / 1080 1080 / 1080 Physical Exam Const: COMMON NORMALS: patient oriented x3 and alert GENERAL APPEARANCE: cooperative and well developed ORIENTATION/CONSCIOUSNESS: Yes awake HENMT: COMMON NORMALS: normocephalic, atraumatic and oropharynx normal HEAD & SCALP: normocephalic and atraumatic Eye: COMMON NORMALS: conjunctivae normal CONJUNCTIVA: Yes conjunctivae normal SCLERA: sclerae normal Neck/C-Spine: COMMON NORMALS: supple and no JVD GENERAL: Yes trachea midline Resp: COMMON NORMALS: normal respiratory effort and clear to auscultation bilaterally EFFORT & INSPECTION: Yes able to speak in complete sentences AUSCULTATION: clear to auscultation bilaterally Cardio: COMMON NORMALS: no JVD, regular rhythm, S1 normal heart sound present, S2 normal heart sound present and No murmurs present (Cardio) RATE: tachycardic RHYTHM: regular rhythm and abnormal rhythm irregularly irregular HEART SOUNDS: S1 normal heart sound present and S2 normal heart sound present GI: COMMON NORMALS: Normal to inspection, nondistended, normoactive bowel sounds present, Soft to palpation and non-tender PALPATION: Yes Soft to palpation and No Tenderness to palpation present (GI) Extremity: COMMON NORMALS: no joint enlargement and no pedal edema GENERAL: Yes normal exam except as noted and No edema Neuro: COMMON NORMALS: patient oriented x3 and moves all extremities SENSORIUM/ORIENTATION: Yes alert and No Orientation impaired Psych: COMMON NORMALS: mental status grossly normal and Normal thought process present THOUGHT PROCESS: Normal thought process present Skin: COMMON NORMALS: no rashes or lesions noted GENERAL SKIN EXAM: no rashes or lesions noted Data : 04/25/22 03:56 04/25/22 03:56 A&P Assessment and plan (1) Atrial fibrillation with RVR: Off Cardizem drip. Appreciate cardiology recommendations. Continue with sotalol 80 twice daily. Increase Cardizem to 30 mg 3 times daily. Will uptitrate keeping heart rate less than 100 history of bradycardia in the past. Monitor for bradycardia. Not on anticoagulation as an outpatient for many years. Discussed anticoagulation medicine demerits with the patient's family. They are agreeable. Switch to Eliquis 2.5 mg twice daily. Status: Acute (2) Orthostatic hypotension: Hypotension has resolved but getting tachycardic on standing up. As per cardiology most likely secondary to orthostasis. Started on pyridostigmine 60 mg twice daily as per cardiology recommendations. Continue to hold off on all other antihypertensives including losartan, Imdur and amlodipine. Continue with up titration of Cardizem depending on blood pressures and heart rate. Goal blood pressure less than 140/90 mmHg with mean artery pressure over 65. Status: Acute (3) Atherosclerotic heart disease of [place] coronary artery without angina pectoris: Denies any chest pain. Lexiscan stress test results appreciated. Plan for continue with medical management. Status: Acute Qualifiers: [place] vs. transplanted heart: [place] heart Qualified Code(s): I25.10 - Atherosclerotic heart disease of [place] coronary artery without angina pectoris (4) Mixed hyperlipidemia: Lipid panel appreciated. Patient allergic to statins and ezetimibe Status: Chronic (5) Controlled type 2 diabetes mellitus with hyperglycemia, without long-term current use of insulin: Status: Chronic Plan Current diastolic CHF, not in exacerbation HTN DM2 COPD History of CVA ROBERTA HLD Thoracic aortic aneurysm Chronic aortic dissection Other current problems Analgesia: Tylenol as needed Glycemic control: Sliding scale at moderate dose protocol, check A1c Nutrition: Cardiac diet, CODE STATUS: Limited resuscitation PUD prophylaxis: Famotidine DVT prophylaxis: Eliquis will suffice for DVT prophylaxis. Discharge planning: Discharge back home most likely within next 24 to 48 hours if stress test remains negative and patient orthostasis resolves. Home with possible home health Continue with care at CSU level This documentation was created by [employer] medical coding instructor software. Every effort was made to ensure accuracy of medical coding instructor. Any obvious errors or omissions should be clarified with the author of the document. Attestations Medical Necessity Statement*: Requires further hospitalization for management of A. fib with RVR in a patient with history of significant bradycardia, positive orthostasis Time Spent in Patient Care: Greater than 35 minutes Coding Level of Care Code Acute Trial Manager for Chg Fwd Diagnoses Atrial fibrillation with RVR I48.91 Orthostatic hypotension I95.1 Atherosclerotic heart disease of [place] coronary artery without angina pectoris I25.10 [place] vs. transplanted heart: [place] heart Mixed hyperlipidemia E78.2 Controlled type 2 diabetes mellitus with hyperglycemia, without long-term current use of insulin E11.65
[2022-04-25 16:30] LABS: Glucose Point of Care 212 mg/dL (70-110)
[2022-04-25] MEDS: lidocaine 2% viscous 15 ML, aluminum-mag hydrox-simethicon 30 ML, sucralfate oral liq 1 GM PO (17:21)
[2022-04-25 21:23] LABS: Glucose Point of Care 234 mg/dL (70-110)
[2022-04-25] MEDS: acetaminophen 325 mg Tablet 650 MG PO (21:37)
[2022-04-26] VITALS (7 sets, daily range): BP systolic 128–163; BP diastolic 66–94; PULSE 65–84; RESP 16–18; TEMP 36.6–36.9; O2SAT 93–97
[2022-04-26 01:22] LABS: Glucose Point of Care 69 mg/dL (70-110)
[2022-04-26] MEDS: dilTIAZem 30 mg Tablet PO (04:50)
[2022-04-26] MEDS: pyridostigmine 60 mg Tablet PO ×2 (04:51→11:03)
[2022-04-26 06:25] LABS: Alanine Aminotransferase 48 U/L (0-33); Albumin Level 3.5 g/dL (3.5-5.2); Alkaline Phosphatase 83 U/L (35-105); Anion Gap 11.6 (5-19); Aspartate Amino Transferase 49 U/L (0-32); Blood Urea Nitrogen 21 mg/dL (8-23); Calcium 8.7 mg/dL (8.5-10.5); Carbon Dioxide 30 mmol/L (22-29); Chloride 102 mmol/L (98-107); Globulin 3.3 g/dL (1.3-4.6); Glucose 167 mg/dL (65-115); Osmolality Calculated 295 mOsm/kg (285-295); Potassium 4.6 mmol/L (3.5-5.1); Sodium 139 mmol/L (136-145); Total Bilirubin 0.3 mg/dL (0.15-1.2); Total Protein 6.8 g/dL (6.6-8.7)
[2022-04-26 06:27] LABS: Glucose Point of Care 182 mg/dL (70-110)
[2022-04-26 07:10] LABS: Estmated Average Glucose 177; Hemoglobin A1C 7.8 % (4.0-6.0)
[2022-04-26] MEDS: acetaminophen 325 mg Tablet 650 MG PO (07:13)
[2022-04-26] MEDS: clopidogrel 75 mg Tablet PO (08:59)
[2022-04-26] MEDS: sotalol 80 mg Tablet PO (08:59)
[2022-04-26] MEDS: magnesium oxide 400 mg tablet PO (09:00)
[2022-04-26] MEDS: sertraline 50 mg Tablet 100 MG PO (09:00)
[2022-04-26] MEDS: apixaban 5 mg Tablet 2.5 MG PO (09:01)
[2022-04-26] MEDS: insulin lispro 100 unit/1 mL SUBCUT (09:17)
[2022-04-26 09:24] LABS: Glucose Point of Care 230 mg/dL (70-110)
--- NOTE | 2022-04-26 09:58 | PM.PN ---
Subjective Subjective: Patient is feeling better. The orthostatic hypotension has improved. No new symptoms. Telemetry shows atrial fibrillation with a controlled ventricular response rate Medications: Medication Review Details: Current Medications Acetaminophen (Acetaminophen 325 Mg Tablet) 650 mg PO Q6H PRN PRN Reason: Mild/Mod Pain Or Temp >/= 101 Last Admin: 04/26/22 07:13 Dose: 650 mg Apixaban (Apixaban 5 Mg Tablet) 2.5 mg PO BID@0900,2100 [facility] Last Admin: 04/26/22 09:01 Dose: 2.5 mg Clopidogrel Bisulfate (Clopidogrel 75 Mg Tablet) 75 mg PO DAILY [facility] Last Admin: 04/26/22 08:59 Dose: 75 mg Dextrose (Dextrose 50% Syringe 50 Ml) 25 ml IVP ONCE PRN; Protocol PRN Reason: hypoglycemia protocol Dextrose (Dextrose 50% Syringe 50 Ml) 50 ml IVP PRN PRN; Protocol PRN Reason: hypoglycemia protocol Diltiazem HCl (Diltiazem 30 Mg Tablet) 30 mg PO Q8H [facility] Last Admin: 04/26/22 04:50 Dose: 30 mg Ferrous Gluconate (Ferrous Gluconate 324 Mg Tablet) 324 mg PO EVERY OTHER DAY [facility] Last Admin: 04/25/22 09:41 Dose: 324 mg Furosemide (Furosemide 40 Mg Tablet) 40 mg PO DAILY [facility] Last Admin: 04/23/22 08:55 Dose: 40 mg Glucagon (Glucagon 1 Mg/Ml Inj 1 Ml) 1 mg IM ONCE PRN; Protocol PRN Reason: Adult Acute Hypoglycemia Prot. Hydroxyzine Pamoate (Hydroxyzine 25 Mg Capsule) 25 mg PO ONCE PRN PRN Reason: ANXIETY Last Admin: 04/23/22 21:30 Dose: 25 mg Dextrose (D5w) 500 mls @ 100 mls/hr IV ONCE PRN; Protocol PRN Reason: Adult Acute Hypoglycemia Prot Insulin Human Lispro (Insulin Lispro 100 Unit/1 Ml) 0 unit SUBCUT WM&BEDTIME [facility]; Protocol Last Admin: 04/26/22 09:17 Dose: 6 unit Magnesium Oxide (Magnesium Oxide 400 Mg Tablet) 400 mg PO DAILY [facility] Last Admin: 04/26/22 09:00 Dose: 400 mg Nitroglycerin (Nitroglycerin 0.4 Mg Sublingual Tablet) 0.4 mg SUBLINGUAL Q5M PRN PRN Reason: chest pain Last Admin: 04/23/22 23:45 Dose: 0.4 mg Ondansetron HCl (Ondansetron 2 Mg/Ml Sdv 2 Ml) 4 mg IVP Q8H PRN PRN Reason: vomiting, or N/V if npo Pyridostigmine [place] (Pyridostigmine 60 Mg Tablet) 60 mg PO Q8H [facility] Last Admin: 04/26/22 04:51 Dose: 60 mg Sertraline HCl (Sertraline 50 Mg Tablet) 100 mg PO DAILY [facility] Last Admin: 04/26/22 09:00 Dose: 100 mg Sotalol HCl (Sotalol 80 Mg Tablet) 80 mg PO BID [facility] Last Admin: 04/26/22 08:59 Dose: 80 mg Vitals/I&O/Wt Last Vital Signs Temp 98.4 F 04/26/22 08:00 Pulse 76 04/26/22 08:00 Resp 18 04/26/22 08:00 BP 134/66 04/26/22 08:00 Pulse Ox 95 04/26/22 08:00 O2 Del Method 04/26/22 08:00 O2 Flow Rate 2 04/25/22 08:00 04/25/22 04/26/22 04/26/22 22:59 06:59 14:59 Intake Total 272 / 1352 200 / 1552 Balance 272 / 1352 200 / 1552 Physical Exam Narrative: GENERAL: The patient is alert and oriented times three. Not in any acute distress. HEENT: No significant pallor, icterus or lymphadenopathy.Oral cavity: There are no mucous membrane lesions. NECK: Trachea appears to be central. No masses noted. No JVD or thyromegaly appreciated. RESPIRATORY: Chest is symmetrical. No intercostals muscle retraction or any accessory muscle activation. There is no chest wall tenderness. Breath sounds are heard bilaterally. No rales or rhonchi heard. No evidence of any consolidation. BREASTS: Deferred. HEART: The heart sounds are normal. No S3 or S4. Short systolic murmur in the left sternal border. No diastolic murmurs. No pericardial rub ABDOMEN: No vessel pulsations or distention. No tenderness. No organomegaly appreciated. Bowel sounds are normally heard. : Deferred. RECTAL: Deferred. LYMPHATIC: No lymphadenopathy noted in the neck. EXTREMITIES: No edema or cyanosis. No clubbing. MUSCULOSKELETAL: No acute joint deformities or swelling SKIN: There are no significant rashes or ecchymosis NEUROPSYCHIATRIC: The patient is alert and oriented x3. Appears to be in a good mood. No tremors or rigidity noted. Data : 04/25/22 03:56 04/26/22 05:14 Other Labs: Laboratory Last Values WBC 6.2 10^3/uL (4.0-10.0) 04/25/22 03:56 RBC 4.18 10^6/uL (4.1-5.3) 04/25/22 03:56 Hgb 12.2 g/dL (11.5-15.3) 04/25/22 03:56 Hct 38.9 % (37.0-47.0) 04/25/22 03:56 MCV 93.1 fl (81-99) 04/25/22 03:56 MCH 29.2 pg (28.0-34.0) 04/25/22 03:56 MCHC 31.4 g/dL (30.0-36.0) 04/25/22 03:56 RDW 15.9 % (12.1-15.1) H 04/25/22 03:56 Plt Count 118 10^3/cmm (130-400) L 04/25/22 03:56 MPV 11.3 fL (7.4-10.4) H 04/25/22 03:56 Neut % (Auto) 54.4 % 04/25/22 03:56 Lymph % (Auto) 26.2 % 04/25/22 03:56 Leslie % (Auto) 11.2 % 04/25/22 03:56 Eos % (Auto) 3.6 % 04/25/22 03:56 Baso % (Auto) 1.0 % 04/25/22 03:56 Neut # (Auto) 3.37 10^3/uL (1.8-7.7) 04/25/22 03:56 Lymph # (Auto) 1.6 10^3/uL (0.8-4.8) 04/25/22 03:56 Leslie # (Auto) 0.7 10^3/uL (0.2-0.9) 04/25/22 03:56 Eos # (Auto) 0.2 10^3/uL (0.0-0.8) 04/25/22 03:56 Baso # (Auto) 0.1 10^3/uL (0.0-0.1) 04/25/22 03:56 Nucleated RBC % (auto) 0 % 04/25/22 03:56 Nucleated RBCs # 0.0 /100WBC 04/25/22 03:56 PT 14.00 SECONDS (12.1-14.9) 04/21/22 15:33 INR 1.05 (0.8-1.2) 04/21/22 15:33 APTT 28.2 SECONDS (23.9-36.7) 04/21/22 15:33 D-Dimer 2.26 ug/mIFEU (0-0.59) H 04/21/22 15:33 Sodium 139 mmol/L (136-145) 04/26/22 05:14 Potassium 4.6 mmol/L (3.5-5.1) 04/26/22 05:14 Chloride 102 mmol/L (98-107) 04/26/22 05:14 Carbon Dioxide 30 mmol/L (22-29) H 04/26/22 05:14 Anion Gap 11.6 (5-19) 04/26/22 05:14 BUN 21 mg/dL (8-23) 04/26/22 05:14 Creatinine 0.7 mg/dL (0.5-0.9) 04/26/22 05:14 GFR Calculation Not Reportable 04/26/22 05:14 Glucose 167 mg/dL (65-115) H 04/26/22 05:14 POC Glucose 230 mg/dL (70-110) H 04/26/22 09:03 Estimat Average Glucose 177 04/26/22 05:14 Hemoglobin A1c 7.8 % (4.0-6.0) H 04/26/22 05:14 Calculated Osmolality 295 mOsm/kg (285-295) 04/26/22 05:14 Calcium 8.7 mg/dL (8.5-10.5) 04/26/22 05:14 Magnesium 2.1 mg/dL (1.7-2.3) 04/21/22 14:46 Iron 89 ug/dL (37-145) 04/23/22 13:22 TIBC 266 mcg/dl 04/23/22 13:22 % Saturation 33.4 % (20-50) 04/23/22 13:22 Unsat Iron Binding 177 ug/dL (112-347) 04/23/22 13:22 Total Bilirubin 0.3 mg/dL (0.15-1.2) 04/26/22 05:14 AST 49 U/L (0-32) H 04/26/22 05:14 ALT 48 U/L (0-33) H 04/26/22 05:14 Alkaline Phosphatase 83 U/L (35-105) 04/26/22 05:14 Troponin T Baseline 15 ng/L (0-10) H 04/23/22 13:22 Troponin T 120 Minute 13.13 ng/L (0-10) H 04/23/22 15:05 Delta Troponin T -1.87 ABS# (0-10) L 04/23/22 15:05 Troponin T Hi Sens 6Hr 11.21 ng/L (0-10) H 04/23/22 20:00 Troponin T Hi Sens 6Hr Delta -3.79 ng/L (0-12) L 04/23/22 20:00 NT-Pro-B Natriuret Pep 558 pg/mL (0-450) H 04/21/22 14:46 Total Protein 6.8 g/dL (6.6-8.7) 04/26/22 05:14 Albumin 3.5 g/dL (3.5-5.2) 04/26/22 05:14 Globulin 3.3 g/dL (1.3-4.6) 04/26/22 05:14 Triglycerides 141 mg/dL (0-150) 04/24/22 02:37 Cholesterol 207 mg/dL (0-200) H 04/24/22 02:37 LDL Cholesterol, Calc 143 mg/dL (50-129) H 04/24/22 02:37 Total VLDL Cholesterol 28 mg/dL (0-30) 04/24/22 02:37 HDL Cholesterol 36 mg/dL (60-100) L 04/24/22 02:37 Cholesterol/HDL Ratio 5.75 mg/dL (0.0-4.40) H 04/24/22 02:37 Lipase 45 U/L (13-60) 04/21/22 14:46 TSH 3.42 uIU/mL (0.27-4.20) 08/20/22 14:46 A&P Assessment and plan (1) Atrial fibrillation with RVR: Patient may continue on the Cardizem 30 mg p.o. every 8 hours. Status: Acute (2) Orthostatic hypotension: May continue on the pyridostigmine 60 mg twice daily Status: Acute (3) Atherosclerotic heart disease of [place] coronary artery without angina pectoris: Since the patient has no specific symptoms of coronary insufficiency, may not require any further investigations at this time. Advised to continue on the current medications. Importance of compliance to diet and exercise were discussed which the patient seems to understand well. Status: Acute Qualifiers: [place] vs. transplanted heart: [place] heart Qualified Code(s): I25.10 - Atherosclerotic heart disease of [place] coronary artery without angina pectoris (4) Mixed hyperlipidemia: Continue on the current management. Follow-up evaluation as scheduled. Status: Inactive (5) Controlled type 2 diabetes mellitus with hyperglycemia, without long-term current use of insulin: Continue on the current management. Follow-up evaluation as scheduled. Status: Inactive Plan Other problems are Chronic renal insufficiency Chronic aortic dissection If the patient continues to remain stable may be discharged home today. Discussed with Dr. Matute Attestations Medical Necessity Statement*: Possible discharge home today Coding Level of Care Code Acute Handle Finisher for Chg Fwd History Expanded Problem Focused Exam Expanded Problem Focused Medical Decision Making Moderate Complexity Diagnoses Atrial fibrillation with RVR I48.91 Orthostatic hypotension I95.1 Atherosclerotic heart disease of [place] coronary artery without angina pectoris I25.10 [place] vs. transplanted heart: [place] heart Mixed hyperlipidemia E78.2 Controlled type 2 diabetes mellitus with hyperglycemia, without long-term current use of insulin E11.65
--- NOTE | 2022-04-26 10:05 | P.DS_ITS ---
Discharge Providers Date of Admission: 04/22/22 15:59 Date of Discharge: April 26, 2022 Attending Provider at Admission: Silvino Arreguin Attending Provider at Discharge: Jake Matute MD Consults: Cardiology:: Dr. Alejandre Primary Care Provider: ALFONSO Schmitt Diagnoses at Discharge Discharge Diagnosis (1) Atrial fibrillation with RVR: Status: Acute (2) Orthostatic hypotension: Status: Acute (3) Atherosclerotic heart disease of [place] coronary artery without angina pectoris: Status: Acute Qualifiers: [place] vs. transplanted heart: [place] heart Qualified Code(s): I25.10 - Atherosclerotic heart disease of [place] coronary artery without angina pectoris Permanent problem details: Recent nuclear stress test, 03/03/2020 demonstrated reversible ischemia, small area, LAD distribution (4) Mixed hyperlipidemia: Status: Chronic (5) Controlled type 2 diabetes mellitus with hyperglycemia, without long-term current use of insulin: Status: Chronic Reason for Visit Reason for Visit: irregular hr Hospital Course Hospital Course Florence Mehta is a 86 year old female with past medical history of paroxysmal atrial fibrillation, heart failure with preserved ejection fraction, history of bradycardia, chronic descending thoracic aortic dissection and CAD, ascending aortic aneurysm 5 cm in diameter, s/p CABG, s/p PCI of vein graft to circumflex in June 2015, type 2 diabetes mellitus, dyslipidemia and hypertension. She is here with at least three day h/o tachycardia with HR in 130's-140's on pulse ox. She also developed some CP and SOB and presented to ER. She was given metoporlol IV f/b cardizem gtt. She remained briefly on cardizem drip. She is currently in A. fib but is rate controlled mostly. She feels better. She has not been on anticoagulation for last several years. She was previously on sotalol 160 mg BID that was cut back to 80 mg BID for bradycardia. She has h/o TIA per patient. She lost her suddenly last year and since then her daughter Florence Duron has been taking care of her meds. Patient's hospitalization was complicated by developing orthostatic hypotension for which her multiple antihypertensives were withheld. She was eventually stopped and heart rate has been well stable after that. For possibility of ischemic etiology further chest pressure given her slightly positive cardiac stress test in 2019 cardiology was consulted and she underwent repeat Lexiscan stress test on 2021 which showed stable abnormality to stress test hence medical management was decided. She was started on oral Cardizem for A. fib with RVR which was gently titrated up given her history of significant bradycardia. Patient's blood pressure and heart rate has been stable on Cardizem 30 mg 3 times daily along with sotalol 80 mg twice daily. She has been discharged in hemodynamically stable condition. Multiple antihypertensives including losartan, amlodipine has been withheld. She is to take Lasix 40 mg daily for now going forward. She is to check her blood pressure at home both sitting and standing and heart rate monitoring at least twice daily at home and maintain a blood pressure diary and follow-up with a primary care provider and [facility] in the next 4 to 7 days. Event monitor was also requested on discharge to monitor for A. fib with RVR along with significant bradycardia so that further medication adjustments can be done. For anticoagulation given significant risk of stroke with history of atrial fibrillation she was started on Eliquis 2.5 mg morning and evening after discussing merits versus demerits of anticoagulation with family and patient herself. Physical Exam Const: COMMON NORMALS: patient oriented x3 and alert GENERAL APPEARANCE: cooperative and well developed ORIENTATION/CONSCIOUSNESS: Yes awake HENMT: COMMON NORMALS: normocephalic, atraumatic and oropharynx normal HEAD & SCALP: normocephalic and atraumatic Eye: COMMON NORMALS: conjunctivae normal CONJUNCTIVA: Yes conjunctivae normal SCLERA: sclerae normal Neck/C-Spine: COMMON NORMALS: supple and no JVD GENERAL: Yes trachea midline Resp: COMMON NORMALS: normal respiratory effort and clear to auscultation bilaterally EFFORT & INSPECTION: Yes able to speak in complete sentences AUSCULTATION: clear to auscultation bilaterally Cardio: COMMON NORMALS: no JVD, regular rhythm, S1 normal heart sound present, S2 normal heart sound present and No murmurs present (Cardio) RATE: tachycardic RHYTHM: regular rhythm and abnormal rhythm irregularly irregular HEART SOUNDS: S1 normal heart sound present and S2 normal heart sound present GI: COMMON NORMALS: Normal to inspection, nondistended, normoactive bowel sounds present, Soft to palpation and non-tender PALPATION: Yes Soft to pa lpation and No Tenderness to palpation present (GI) Extremity: COMMON NORMALS: no joint enlargement and no pedal edema GENERAL: Yes normal exam except as noted and No edema Neuro: COMMON NORMALS: patient oriented x3 and moves all extremities SENSORIUM/ORIENTATION: Yes alert and No Orientation impaired Psych: COMMON NORMALS: mental status grossly normal and Normal thought process present THOUGHT PROCESS: Normal thought process present Skin: COMMON NORMALS: no rashes or lesions noted GENERAL SKIN EXAM: no rashes or lesions noted Discharge Data Studies Completed and Pending Completed Studies During Hospitalization Category Date Time Status CTA chest [CT angio chest PE protcl [id number]] Stat Cat Scan 04/21/22 16:02 Completed Sestamibi Stress Test Request Routine Exams 04/23/22 17:02 Completed XR chest 1V portable [id number] Stat Exams 04/21/22 14:38 Completed NM ant perf SPECT r/s* [id number] Routine Nuc Med 04/24/22 17:02 Completed CV. echo complete* [id number] Routine Ultrasound 04/21/22 20:08 Completed Radiology Impressions Chest X-Ray 04/21/22 14:38 IMPRESSION: 1. Possible mild cardiomegaly.Heart size not optimally evaluated with a single AP view of the chest. 2. Thoracic aorta is tortuous and contains calcified plaque. Chest CTA 04/21/22 16:02 IMPRESSION: 1. Ascending thoracic aorta is aneurysmal measuring 5.0 cm in the transverse dimension. Descending thoracic aorta is aneurysmal measuring 4.9 cm in the transverse dimension. No evidence for rupture. In general, aortic diameters of 5.[address] patients at high risk for rupture and should be considered for intervention. If connective tissue diseases such as Marfan or Taniya-Danlos disease is known, then a diameter of 5 cm prompts consideration of prophylactic aortic root replacement. 2. 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 3. Multivessel atherosclerotic disease which involves the coronary arteries. 4. No evidence for pulmonary embolus. Myocardial perfusion scan: PERFUSION FINDINGS ?A small area of decreased visibility was noted in the apical lateral and apical ?anterior region.? Subtle area of reversibility was noted in the apical lateral ?region. ?FUNCTIONAL RESULTS ? ? (calculated via Gated SPECT) ? Stress Image LV EF (%):? ? 62 ? Stress EDV (mL):63 ? TID:? 0.9 ? Stress ESV (mL):24 ?FUNCTIONAL FINDINGS: ?Segmental wall motion analysis revealed mild diffuse hypokinesia of the septum ?and LV apex ?IMPRESSIONS ?1.? Myocardial perfusion imaging revealing small area of persistent decreased ?tracer uptake in the apical lateral and apical anterior region, with a subtle ?area reversibility, suggesting myocardial scarring with ischemia in the ?distribution of the left circumflex artery. ?2.? Normal LV ejection fraction of 62%. ?3.? LV wall motion analysis revealing mild diffuse hypokinesia of the septum ?and LV apex. ?4.? Normal LV volume. ?Compared to the study from 03/03/2020, the ischemic burden remains unchanged but ?the location is in the apical lateral region while it was? apical anterior with ?the previous study. Echocardiogram: ?CONCLUSIONS ?1. Normal left ventricular cavity size and systolic function. ?Left ventricular ejection fraction is estimated at 55%. No ?regional wall motion abnormalities. ?2. Normal right ventricular size and systolic function. ?3. Trace to mild aortic valve regurgitation. ?4. Moderate tricuspid valve regurgitation. ?5. When compared to previous echocardiogram dated 08/09/2020, ?tricuspid and mitral valve regurgitation may have decreased ?somewhat. ?Esha Martin MD ?(Electronically Signed) ?Final Date:? ? ? 22 April 2022 ? 13:43 Laboratory Results WBC 6.2 10^3/uL (4.0-10.0) 04/25/22 03:56 RBC 4.18 10^6/uL (4.1-5.3) 04/25/22 03:56 Hgb 12.2 g/dL (11.5-15.3) 04/25/22 03:56 Hct 38.9 % (37.0-47.0) 04/25/22 03:56 MCV 93.1 fl (81-99) 04/25/22 03:56 MCH 29.2 pg (28.0-34.0) 04/25/22 03:56 MCHC 31.4 g/dL (30.0-36.0) 04/25/22 03:56 RDW 15.9 % (12.1-15.1) H 04/25/22 03:56 Plt Count 118 10^3/cmm (130-400) L 04/25/22 03:56 MPV 11.3 fL (7.4-10.4) H 04/25/22 03:56 Neut % (Auto) 54.4 % 04/25/22 03:56 Lymph % (Auto) 26.2 % 04/25/22 03:56 [place] % (Auto) 11.2 % 04/25/22 03:56 Eos % (Auto) 3.6 % 04/25/22 03:56 Baso % (Auto) 1.0 % 04/25/22 03:56 Neut # (Auto) 3.37 10^3/uL (1.8-7.7) 04/25/22 03:56 Lymph # (Auto) 1.6 10^3/uL (0.8-4.8) 04/25/22 03:56 [place] # (Auto) 0.7 10^3/uL (0.2-0.9) 04/25/22 03:56 Eos # (Auto) 0.2 10^3/uL (0.0-0.8) 04/25/22 03:56 Baso # (Auto) 0.1 10^3/uL (0.0-0.1) 04/25/22 03:56 Nucleated RBC % (auto) 0 % 04/25/22 03:56 Nucleated RBCs # 0.0 /100WBC 04/25/22 03:56 PT 14.00 SECONDS (12.1-14.9) 04/21/22 15:33 INR 1.05 (0.8-1.2) 04/21/22 15:33 APTT 28.2 SECONDS (23.9-36.7) 04/21/22 15:33 D-Dimer 2.26 ug/mIFEU (0-0.59) H 04/21/22 15:33 Sodium 139 mmol/L (136-145) 04/26/22 05:14 Potassium 4.6 mmol/L (3.5-5.1) 04/26/22 05:14 Chloride 102 mmol/L (98-107) 04/26/22 05:14 Carbon Dioxide 30 mmol/L (22-29) H 04/26/22 05:14 Anion Gap 11.6 (5-19) 04/26/22 05:14 BUN 21 mg/dL (8-23) 04/26/22 05:14 Creatinine 0.7 mg/dL (0.5-0.9) 04/26/22 05:14 GFR Calculation Not Reportable 04/26/22 05:14 Glucose 167 mg/dL (65-115) H 04/26/22 05:14 POC Glucose 230 mg/dL (70-110) H 04/26/22 09:03 Estimat Average Glucose 177 04/26/22 05:14 Hemoglobin A1c 7.8 % (4.0-6.0) H 04/26/22 05:14 Calculated Osmolality 295 mOsm/kg (285-295) 04/26/22 05:14 Calcium 8.7 mg/dL (8.5-10.5) 04/26/22 05:14 Magnesium 2.1 mg/dL (1.7-2.3) 04/21/22 14:46 Iron 89 ug/dL (37-145) 04/23/22 13:22 TIBC 266 mcg/dl 04/23/22 13:22 % Saturation 33.4 % (20-50) 04/23/22 13:22 Unsat Iron Binding 177 ug/dL (112-347) 04/23/22 13:22 Total Bilirubin 0.3 mg/dL (0.15-1.2) 04/26/22 05:14 AST 49 U/L (0-32) H 04/26/22 05:14 ALT 48 U/L (0-33) H 04/26/22 05:14 Alkaline Phosphatase 83 U/L (35-105) 04/26/22 05:14 Troponin T Baseline 15 ng/L (0-10) H 04/23/22 13:22 Troponin T 120 Minute 13.13 ng/L (0-10) H 04/23/22 15:05 Delta Troponin T -1.87 ABS# (0-10) L 04/23/22 15:05 Troponin T Hi Sens 6Hr 11.21 ng/L (0-10) H 04/23/22 20:00 Troponin T Hi Sens 6Hr Delta -3.79 ng/L (0-12) L 04/23/22 20:00 NT-Pro-B Natriuret Pep 558 pg/mL (0-450) H 04/21/22 14:46 Total Protein 6.8 g/dL (6.6-8.7) 04/26/22 05:14 Albumin 3.5 g/dL (3.5-5.2) 04/26/22 05:14 Globulin 3.3 g/dL (1.3-4.6) 04/26/22 05:14 Triglycerides 141 mg/dL (0-150) 04/24/22 02:37 Cholesterol 207 mg/dL (0-200) H 04/24/22 02:37 LDL Cholesterol, Calc 143 mg/dL (50-129) H 04/24/22 02:37 Total VLDL Cholesterol 28 mg/dL (0-30) 04/24/22 02:37 HDL Cholesterol 36 mg/dL (60-100) L 04/24/22 02:37 Cholesterol/HDL Ratio 5.75 mg/dL (0.0-4.40) H 04/24/22 02:37 Lipase 45 U/L (13-60) 04/21/22 14:46 TSH 3.42 uIU/mL (0.27-4.20) 04/21/22 14:46 Vitals Last Vital Signs Temp 98.4 F 04/26/22 08:00 Pulse 76 04/26/22 08:00 Resp 18 04/26/22 08:00 BP 134/66 04/26/22 08:00 Pulse Ox 95 04/26/22 08:00 O2 Del Method 04/26/22 08:00 O2 Flow Rate 2 04/25/22 08:00 Discharge Plan Discharge Patient Disposition: Home Condition: Stable Prescriptions: New Eliquis 5 mg Tablet 2.5 mg PO BID@0900,2100 Qty: 30 0RF diltiazem HCl 30 mg Tablet 30 mg PO TID Qty: 90 0RF pyridostigmine bromide 60 mg Tablet 60 mg PO BID Qty: 60 0RF isosorbide mononitrate 30 mg tablet extended release 24 hr 30 mg PO DAILY PRN (Reason: Systolic blood pressure of more than 140 mmHg both sitting a) Qty: 30 0RF Continued ascorbate calcium (vitamin C) 500 mg tablet 500 mg PO DAILY cascara sagrada 450 mg capsule 450 mg PO DAILY (DME) lancets 30 gauge misc See Rx Instructions .ROUTE .MEDSUPPLY Qty: 25 Rx Instructions: As directed (DME) blood sugar diagnostic Strip See Rx Instructions .ROUTE .MEDSUPPLY Qty: 10 Rx Instructions: As directed magnesium oxide 400 mg (241.3 mg magnesium) tablet 400 mg PO DAILY Qty: 90 1RF omega-3 fatty acids [Fish Oil Concentrate] 1,000 mg capsule 2,000 mg PO BID Qty: 360 1RF (DME) syringe with needle 3 mL 22 gauge x 1 syringe See Rx Instructions .ROUTE .MEDSUPPLY Qty: 1 5RF Rx Instructions: use with Vitamin B12 every 6 weeks Januvia 100 mg tablet 100 mg PO QDAY Qty: 90 1RF Rx Instructions: Please fill on 340B sotalol 80 mg tablet 80 mg PO BID sertraline 50 mg tablet 100 mg PO DAILY Qty: 90 1RF glimepiride 4 mg tablet 4 mg PO QAM Qty: 90 1RF nitroglycerin 0.4 mg tablet, sublingual 0.4 mg SUBLINGUAL Q5M PRN (Reason: chest pain) Qty: 1 2RF Rx Instructions: do not exceed 3 doses per episode clopidogrel 75 mg tablet 75 mg PO DAILY Qty: 90 3RF potassium chloride 10 mEq tablet,ER particles/crystals 20 meq PO DIRECTED Qty: 180 3RF Rx Instructions: Take 1 tab twice daily on Mon,Sat,Sat and 1 tab daily on ,,,Singh ferrous gluconate 324 mg (38 mg iron) tablet 324 mg PO EVERY OTHER DAY metformin 500 mg tablet 500 mg PO QPM cyanocobalamin (vitamin B-12) 1,000 mcg/mL solution 1,000 mcg IM Q30D Farxiga 10 mg tablet 10 mg PO DAILY Changed Lasix 40 mg tablet 40 mg PO DAILY Qty: 30 0RF Discontinued isosorbide mononitrate 120 mg tablet extended release 24 hr 120 mg PO DAILY Qty: 90 1RF losartan 25 mg tablet 25 mg PO DAILY Qty: 90 3RF amlodipine 10 mg tablet 10 mg PO DAILY Qty: 90 3RF Discharge Orders: Discharge Order (Routine); Ordered 04/26/22 Ordered By: Jake Matute Other Ambulatory Orders: MCT/Event Monitor 21 Days (Routine) Timeframe: 1 Week Facility: [facility] - Location: Radiology Ordered By: Jake Matute Referrals: Andressa Cee FNP [Primary Care Provider] - 05/01/22 10:30 am Andrei Alejandre MD [Physician] - 05/31/22 11:00 Lashay Rodriguez FNP [Nurse Practitioner] - 05/02/22 1:30 pm Discharge Diet: Cardiac Discharge Activity: Resume usual activity and Increase activity as tolerated Patient Instructions: Diltiazem (By mouth), Apixaban (By mouth), A-fib (Atrial Fibrillation) (GEN), Opioid Safety Activity Restrictions/Additional Instructions: Multiple medication changes have been done. Please do not take amlodipine, Imdur, losartan for now. Please take Cardizem 30 mg 3 times a day. Continue taking your sotalol as before. Please check your blood both sitting and standing along with monitoring of your heart rate. If systolic blood pressures are more than 140 mmHg you can take Imdur 30 mg once daily. Please check your blood pressure and heart rate twice daily and maintain a blood pressure diary and follow-up with her primary care provider and nurse practitioner at [facility] within next 1 week. Please follow-up with Dr. Alejandre from cardiology in 2 weeks. APPOINTMENT FOR HEART MONITOR AT [facility] regarding an event monitor ON MAY 08 AT 10:15 Discharge Attestations Time Spent in Discharge Care*: greater than 30 min Specific Discharge Activities: educating patient, educating and/or supporting family/caregiver, discussing with pcp/other providers, discussing with immigration case manager/social workers/dc planners, documenting/other paperwork and evaluating patient/reviewing data Status at Discharge: Cognitive status at discharge: cognitively intact , Behavioral status at discharge: cooperative , Functional status at discharge: independent ambulation , Overall status at discharge: patient is back to baseline Quality Metrics Clinical Quality Measures [ No reported AMI, CVA or VTE this stay] Coding Level of Care Code Acute Chg FW DC note Diagnoses Atrial fibrillation with RVR I48.91 Orthostatic hypotension I95.1 Atherosclerotic heart disease of [place] coronary artery without angina pectoris I25.10 [place] vs. transplanted heart: [place] heart Mixed hyperlipidemia E78.2 Controlled type 2 diabetes mellitus with hyperglycemia, without long-term curren t use of insulin E11.65
--- NOTE | 2022-04-26 10:59 | PC.NURSE ---
Patient's family member came to the desk requesting that all new Rx be sent to [facility] pharmacy here at the hospital. I looked at the discharge and it looks like half of her medications were sent to [facility] pharmacy in [facility] and half of them were sent to [facility]. I called [facility] pharmacy and gave a verbal order on behalf of Dr. Matute for Isosorbide and Pyridostigmine so the patient and family could turkey picker all Rx in one place and requested meds to beds. I informed Lucien Acosta RN of this update.
[2022-04-26 11:16] LABS: Glucose Point of Care 273 mg/dL (70-110)
== END 2022-04-26 12:48 | disposition home or self-care (01) | DRG 308 ==
LOC: ER 17:32 → MEDSURG 17:57
PROVIDERS: Admitting Provider Internal Medicine; Emergency Provider Emergency Medicine; PCP Nurse Practitioner Family; Visit Provider Student in an Organized Health Care Education/Training Program
DX: I48.0 Paroxysmal atrial fibrillation (principal); I71.01 Dissection of thoracic aorta; I50.32 Chronic diastolic (congestive) heart failure; I13.0 Hypertensive heart and chronic kidney disease with heart failure and stage 1 through stage 4 chronic kidney disease, or unspecified chronic kidney disease; I95.2 Hypotension due to drugs; T50.2X5A Adverse effect of carbonic-anhydrase inhibitors, benzothiadiazides and other diuretics, initial encounter; I25.10 Atherosclerotic heart disease of native coronary artery without angina pectoris; E78.2 Mixed hyperlipidemia; E11.65 Type 2 diabetes mellitus with hyperglycemia; I71.2 Thoracic aortic aneurysm, without rupture; J43.9 Emphysema, unspecified; R07.9 Chest pain, unspecified; R79.1 Abnormal coagulation profile; E11.22 Type 2 diabetes mellitus with diabetic chronic kidney disease; N18.9 Chronic kidney disease, unspecified; Z95.1 Presence of aortocoronary bypass graft; Z86.73 Personal history of transient ischemic attack (TIA), and cerebral infarction without residual deficits; Z79.02 Long term (current) use of antithrombotics/antiplatelets; Z79.84 Long term (current) use of oral hypoglycemic drugs
CPT/HCPCS: 36415; 36416; 71045; 71275; 78452; 80048; 80053; 80061; 82962; 83036; 83540; 83550; 83690; 83735; 83880; 84443; 84484; 85025; 85378; 85610; 85730; 93005; 93017; 93306; 96365; 96372; 96375; 99285; A9500; G0378; J1650; J1815; J2405; J2785; J3490; J7050; Q9967

== ENCOUNTER → 2022-05-02 13:29 | Outpatient (BNVA) | payer MEDICARE, OTHER, SELFPAY | PROVIDERS: PCP Nurse Practitioner Family; Visit Provider Nurse Practitioner Family | DX: I48.91 Unspecified atrial fibrillation (principal); Z79.01 Long term (current) use of anticoagulants | CPT/HCPCS: 93005; 99214 ==

== ENCOUNTER → 2022-05-14 16:08 | Outpatient (BNVA) | payer MEDICARE, OTHER, SELFPAY | PROVIDERS: PCP Nurse Practitioner Family; Visit Provider Nurse Practitioner Family | DX: I10 Essential (primary) hypertension (principal); I50.32 Chronic diastolic (congestive) heart failure; R74.8 Abnormal levels of other serum enzymes | CPT/HCPCS: 80053; 83880; 85025 ==

== ENCOUNTER → 2022-05-31 12:46 | Outpatient (BNVA) | payer MEDICARE, OTHER, SELFPAY | PROVIDERS: PCP Nurse Practitioner Family; Visit Provider Internal Medicine Cardiovascular Disease | DX: R06.02 Shortness of breath (principal); I50.32 Chronic diastolic (congestive) heart failure; I25.10 Atherosclerotic heart disease of native coronary artery without angina pectoris; I48.0 Paroxysmal atrial fibrillation; Z86.73 Personal history of transient ischemic attack (TIA), and cerebral infarction without residual deficits; E78.2 Mixed hyperlipidemia; I71.01 Dissection of thoracic aorta | CPT/HCPCS: 36415; 80048; 83880; 99214 ==

== ENCOUNTER → 2022-08-07 15:42 | Outpatient (BNVA) | payer MEDICARE, OTHER, SELFPAY | PROVIDERS: PCP Nurse Practitioner Family; Visit Provider Nurse Practitioner Family | DX: E53.8 Deficiency of other specified B group vitamins (principal); R53.83 Other fatigue; I10 Essential (primary) hypertension | CPT/HCPCS: 82607 ==

== ENCOUNTER → 2022-08-16 11:22 | Outpatient (BNVA) | payer MEDICARE, OTHER, SELFPAY | PROVIDERS: PCP Nurse Practitioner Family; Visit Provider Nurse Practitioner Family | DX: R05.9 Cough, unspecified (principal) | CPT/HCPCS: 87400; 87426 ==

== ENCOUNTER → 2022-10-11 10:53 | Outpatient (BNVA) | payer MEDICARE, OTHER, SELFPAY | PROVIDERS: PCP Nurse Practitioner Family; Visit Provider Internal Medicine Cardiovascular Disease | DX: I11.0 Hypertensive heart disease with heart failure (principal); I50.32 Chronic diastolic (congestive) heart failure; R06.02 Shortness of breath; I25.10 Atherosclerotic heart disease of native coronary artery without angina pectoris; I48.0 Paroxysmal atrial fibrillation; E78.2 Mixed hyperlipidemia; Z86.73 Personal history of transient ischemic attack (TIA), and cerebral infarction without residual deficits; I71.010 Dissection of ascending aorta | CPT/HCPCS: 36415; 80048; 83880; 99214 ==

== ENCOUNTER → 2023-04-04 10:30 | Outpatient (BNVA) | payer MEDICARE, OTHER, SELFPAY | PROVIDERS: PCP Nurse Practitioner Family; Visit Provider Internal Medicine Cardiovascular Disease | DX: R06.02 Shortness of breath (principal); R07.9 Chest pain, unspecified; I48.0 Paroxysmal atrial fibrillation; E78.2 Mixed hyperlipidemia; I11.0 Hypertensive heart disease with heart failure; I50.32 Chronic diastolic (congestive) heart failure; I71.019 Dissection of thoracic aorta, unspecified; Z86.73 Personal history of transient ischemic attack (TIA), and cerebral infarction without residual deficits | CPT/HCPCS: 80048; 83880; 93005; 99214 ==

== ENCOUNTER → 2023-04-15 08:38 | Outpatient (BNVA) | payer MEDICARE, OTHER, SELFPAY | PROVIDERS: PCP Nurse Practitioner Family; Visit Provider Nurse Practitioner Family | DX: E78.2 Mixed hyperlipidemia (principal); E11.9 Type 2 diabetes mellitus without complications; I10 Essential (primary) hypertension; R53.83 Other fatigue | CPT/HCPCS: 80053; 80061; 83036; 85025 ==

== ENCOUNTER 2023-05-08 14:37 | Outpatient (CLI) | payer MEDICARE, OTHER, SELFPAY ==
[2023-05-08 15:26] LABS: Alanine Aminotransferase 8 U/L (0-33); Albumin Level 4.2 g/dL (3.5-5.2); Alkaline Phosphatase 102 U/L (35-105); Anion Gap 13.7 (5-19); Aspartate Amino Transferase 10 U/L (0-32); Blood Urea Nitrogen 20 mg/dL (8-23); Carbon Dioxide 28 mmol/L (22-29); Chloride 101 mmol/L (98-107); Globulin 2.9 g/dL (1.3-4.6); Glucose 271 mg/dL (65-115); NT Pro B Type Natriuretic Pept 860 pg/mL (0-450); Osmolality Calculated 298 mOsm/kg (285-295); Potassium 4.7 mmol/L (3.5-5.1); Sodium 138 mmol/L (136-145); Total Bilirubin 0.5 mg/dL (0.15-1.2); Total Protein 7.1 g/dL (6.6-8.7)
== END 2023-05-08 14:38 | disposition home or self-care (01) ==
LOC: LAB 14:40
PROVIDERS: PCP Nurse Practitioner Family; Visit Provider Internal Medicine Cardiovascular Disease
DX: I48.0 Paroxysmal atrial fibrillation (principal)
CPT/HCPCS: 36415; 80053; 83880

== ENCOUNTER → 2023-06-17 14:53 | Outpatient (BNVA) | payer MEDICARE, OTHER, SELFPAY | PROVIDERS: PCP Nurse Practitioner Family; Visit Provider Nurse Practitioner Family | DX: R30.0 Dysuria (principal); Z79.01 Long term (current) use of anticoagulants; E55.9 Vitamin D deficiency, unspecified | CPT/HCPCS: 81000; 82652; 85025; 87086 ==

== ENCOUNTER → 2023-06-20 10:15 | Outpatient (BNVA) | payer MEDICARE, OTHER, SELFPAY | PROVIDERS: PCP Nurse Practitioner Family; Visit Provider Internal Medicine Cardiovascular Disease | DX: I48.0 Paroxysmal atrial fibrillation; I63.9 Cerebral infarction, unspecified; E11.9 Type 2 diabetes mellitus without complications; I71.012 Dissection of descending thoracic aorta | CPT/HCPCS: 80048; 83880 ==

== ENCOUNTER → 2023-07-01 08:11 | Outpatient (BNVA) | payer MEDICARE, OTHER, SELFPAY | PROVIDERS: PCP Nurse Practitioner Family; Visit Provider Nurse Practitioner Family | DX: N39.0 Urinary tract infection, site not specified (principal) | CPT/HCPCS: 81000; 87086 ==

== ENCOUNTER → 2023-07-17 10:42 | Outpatient (BNVA) | payer MEDICARE, OTHER, SELFPAY | PROVIDERS: PCP Nurse Practitioner Family; Visit Provider Nurse Practitioner Family | DX: N39.0 Urinary tract infection, site not specified (principal); I50.9 Heart failure, unspecified; I11.0 Hypertensive heart disease with heart failure; E11.9 Type 2 diabetes mellitus without complications; R05.9 Cough, unspecified; R53.83 Other fatigue | CPT/HCPCS: 80053; 80061; 81000; 83036; 83880; 85025; 87086 ==

== ENCOUNTER → 2023-07-24 10:59 | Outpatient (BNVA) | payer MEDICARE, OTHER, SELFPAY | PROVIDERS: PCP Nurse Practitioner Family; Visit Provider Nurse Practitioner Family | DX: N39.0 Urinary tract infection, site not specified (principal) | CPT/HCPCS: 87086 ==

== ENCOUNTER → 2023-10-30 14:21 | Outpatient (BNVA) | payer MEDICARE, OTHER, SELFPAY | PROVIDERS: PCP Nurse Practitioner Family; Visit Provider Nurse Practitioner Family | DX: I50.32 Chronic diastolic (congestive) heart failure (principal); R07.9 Chest pain, unspecified; R07.2 Precordial pain; I44.0 Atrioventricular block, first degree | CPT/HCPCS: 93005 ==

== ENCOUNTER 2023-10-30 15:43 | Emergency (ER) | payer MEDICARE, OTHER, SELFPAY ==
[2023-10-30 15:48] VITALS: BP 126/75; PULSE 86; RESP 18; TEMP 36.8; O2SAT 90
--- NOTE | 2023-10-30 15:49 | ECG_ITS ---
[facility] Test Date: 2023-10-30 Pat Name: Florence Mehta Department: Room: Gender: Female Liquid Sugar Fortifier: : 1935 Requested By: Chuy Euceda Order Number: [id number] Cordon MD: Sy Chung M.D. Measurements Intervals [place] Rate: 78 P: 70 TN: 212 QRS: -7 QRSD: 92 T: 3 QT: 380 QTc: 434 Interpretive Statements SINUS RHYTHM WITH FIRST DEGREE AV BLOCK WITH FREQUENT SUPRAVENTRICULAR PREMATURE COMPLEXES INFERIOR MYOCARDIAL INFARCTION , PROBABLY OLD [40+ ms Q WAVE AND/OR ST/T ABNORMALITY IN II/aVF] MODERATE T-WAVE ABNORMALITY, CONSIDER ANTERIOR ISCHEMIA [-0.1+ mV T-WAVE IN V3/V4] Compared to ECG 04/04/2023 10:38:13 First degree AV block now present Myocardial infarct finding now present Possible ischemia now present Atrial fibrillation no longer present T-wave abnormality still present Electronically Signed On 10-31-2023 7:24:39 NEWSPAPER VENDOR by Sy Chung M.D. [id number]
--- NOTE | 2023-10-30 16:20 | XRR_ITS ---
PROCEDURE INFORMATION: Exam: XR Chest Exam date and time: 10/30/2023 4:24 PM Age: 87 years old Clinical indication: Pain; Angina pectoris; Prior surgery; Surgery date: 6+ months; Surgery type: Open heart; Additional info: Cp TECHNIQUE: Imaging protocol: Radiologic exam of the chest. Views: 1 view. COMPARISON: CT angio chest PE protcl [id number] 04/21/2022 4:21 PM FINDINGS: Lungs: Vague infiltrate is seen in the left base. Pleural spaces: Unremarkable. No pleural effusion. No pneumothorax. Heart/Mediastinum: There is a calcified ectatic thoracic aorta. No cardiomegaly. Bones/joints: Sternal sutures are seen. No acute findings. XR/XR chest 1V portable [id number] IMPRESSION: Vague infiltrate is seen in the left base. Lung mirza are otherwise clear.
--- NOTE | 2023-10-30 16:31 | W.ED.CHESTPA ---
Documented by User: Chuy Euceda DO 10/30/23 17:36 HPI - Chest Pain General: Chief Complaint: Chest Pain Stated Complaint: chest pain Time Seen by Provider: 10/30/23 15:54 Source: patient Mode of arrival: EMS Limitations: no limitations History of Present Illness: This patient was transported to the emergency department from a outpatient clinic for chest pain concerns. She states she normally lives here in the [place] area but was staying with her daughter up in [facility] and today at rest she developed chest pains substernal anterior chest region which lasted for approximately 30 minutes. There was no associated diaphoresis nausea radiation etc. She has a known history of coronary disease had bypasses and stents previously. She is also had a nonproductive cough recently but denies any fevers. No history of COPD and was never a smoker. No known exposure to infectious disease. She states she is pain-free now and has been since arrival at the clinic earlier. MD complaint: chest pain Pertinent past history: coronary artery disease Onset: during rest Pain location: substernal Pain radiation: none Exacerbating factors: nothing Associated symptoms: Deny abdominal pain, dyspnea, fever(s), nausea, palpitations, syncope or vomiting Risk Factors: Thoracic aortic dissection risk factors: history of thoracic aortic aneurysm Review of Systems Const: Denies: fever(s) or chills Eyes: Denies: change in vision ENMT: Denies: throat pain or odynophagia Card: Reports: chest pain; Denies: palpitations, syncope or pre-syncope Resp: Reports: non-productive cough; Denies: dyspnea or productive cough GI: Denies: abdominal pain, nausea, vomiting or diarrhea : Denies: flank pain, difficulty voiding, dysuria or urinary frequency Musc: Denies: neck pain, back pain, extremity pain or extremity swelling Skin/Breast: Denies: rash Neuro: Denies: headache(s), numbness in extremities or weakness in extremities Psych: Denies: anxiety Addy/Lymph: Denies: easy bruising or easy bleeding PFS ED PFSH: Medical History SOB (shortness of breath) Chronic thoracic aortic dissection Chronic diastolic heart failure Constipation -on bowel regimen, as noted above Memory deficit Thoracic aortic aneurysm CVA (cerebral vascular accident) Paroxysmal atrial fibrillation Patient has a history of easy bruising/spontaneous bleeding. So for this reason, she is not on any oral anticoagulation Fatigue Atherosclerotic heart disease of [place] coronary artery without angina pectoris Recent nuclear stress test, 03/03/2020 demonstrated reversible ischemia, small area, LAD distribution Visual distortion COPD with emphysema -no acute exacerbation -CXR noted as well as RML nodule on CT Generalized anxiety disorder Vitamin B12 deficiency Benign hypertension -resume low dose BB and lasix; hold Amlodipine, Imdur Vitamin D deficiency Mixed hyperlipidemia Controlled type 2 diabetes mellitus with hyperglycemia, without long-term current use of insulin Surgical History Hx of cataract extraction History of coronary artery bypass graft History of appendectomy History of hysterectomy History of colonoscopy 2014 Family History Sister Cancer Lung disease Brother CAD (coronary artery disease) Denies family history of Diabetes Clotting disorder Dementia Chronic kidney disease (CKD) Suicide Anesthesia complication Bleeding disorder Stroke Social History Smoking and tobacco/nicotine status: never used tobacco/nicotine Second hand smoke exposure: No Alcohol intake: never Substance/Drug Use: never Caregiver/support person: No Lives independently: Yes Household members: spouse Marital status: Do you think of yourself as: Straight/Heterosexual Current gender identity: Female Physical Exam Narrative: EXAM NARRATIVE: She is alert in good spirits and answers questions in a goal-directed fashion. Const: COMMON NORMALS: no acute distress, average body habitus, patient oriented x3 and alert GENERAL APPEARANCE: cooperative and comfortable HENMT: COMMON NORMALS: normocephalic, atraumatic, Normal nasal mucous membranes and turbinates present, moist oral mucous membranes and oropharynx normal HEAD & SCALP: normocephalic and atraumatic NOSE: Normal nasal mucous membranes and turbinates present Eye: COMMON NORMALS: Equal, round and reactive pupils present, EOMs intact bilaterally and conjunctivae normal CONJUNCTIVA: Yes conjunctivae normal PUPIL: Yes Equal, round and reactive pupils present Neck/C-Spine: COMMON NORMALS: full ROM, no lymphadenopathy, no JVD, Thyroid normal and No carotid bruits THYROID: Thyroid normal Chest: COMMONS NORMALS: normal inspection of the chest and normal palpation of entire chest wall Resp: COMMON NORMALS: normal respiratory effort, No retractions, No use of accessory muscles and clear to auscultation bilaterally AUSCULTATION: clear to auscultation bilaterally Cardio: COMMON NORMALS: no JVD, regular rate, regular rhythm, No murmurs present (Cardio) and Peripheral pulses 2+ throughout RATE: regular rate RHYTHM: regular rhythm PERIPHERAL PULSES: Peripheral pulses 2+ throughout GI: COMMON NORMALS: Normal to inspection, nondistended, normoactive bowel sounds present, Soft to palpation and non-tender PALPATION: Yes Soft to palpation : COMMON NORMALS: Yes no CVA tenderness BLADDER/KIDNEY EXAM: Yes no CVA tenderness Back/Pelvis: COMMON NORMALS: no CVA tenderness, thoracic and lumbar spine normal to inspection, no thoracic nor lumbar tenderness and thoraco-lumbar ROM normal Extremity: COMMON NORMALS: normal to inspection, full ROM, capillary refill normal, no calf tenderness and no pedal edema Neuro: COMMON NORMALS: patient oriented x3, moves all extremities, no focal motor deficits and no sensory deficits noted SENSORIUM/ORIENTATION: Yes alert Psych: COMMON NORMALS: mental status grossly normal Skin: COMMON NORMALS: no rashes or lesions noted, no wounds and turgor normal GENERAL SKIN EXAM: no rashes or lesions noted and turgor normal Course Reevaluation(s): Reevaluation #1: Patient remains chest pain-free. Her initial troponin is slightly elevated we will need to get a 2-hour troponin given the fact that she only had approximate 30-minute duration of chest pain prior to arrival. This case will be checked out to the overnight physician for disposition. Time: 17:34 Vital Signs: Vital signs: Vital Signs Temperature 98.2 F 10/30/23 15:48 Pulse Rate 88 10/30/23 19:00 Respiratory Rate 18 10/30/23 15:48 Blood Pressure 138/80 10/30/23 19:00 Pulse Oximetry 96 10/30/23 19:00 Oxygen Delivery Me thod Room Air 10/30/23 15:48 MDM - Chest Pain Medical Decision Making Patient with a known history of coronary disease presented to the emergency department from an outlying clinic with a history of approximately 30 minutes of chest pain at rest today. There was no other associated radiation, diaphoresis, vomiting nausea etc. Had prior coronary artery bypass. She is faithful to all her medication and has had no other symptoms to include fevers chills etc. She has had a nonproductive cough intermittently. Clinical examination was unrevealing for any significant pathology. She did did have diminished breath sounds at the bases but otherwise a nonfocal examination. Workup was begun to ensure no evidence of ACS. She does have a known history of ascending and descending thoracic aneurysms. No current symptoms to suggest any impending vascular catastrophe. Medical Records I reviewed the patient's medical records. The patient's has a known history of a aneurysmal ascending and descending aorta. Lab Data 10/30/23 15:00 10/30/23 15:00 Radiology Impressions Chest X-Ray 10/30/23 16:20 IMPRESSION: Vague infiltrate is seen in the left base. Lung mirza are otherwise clear. Laboratory Results WBC 8.71 10^3/uL (3.29-11.43) 10/30/23 15:00 RBC 4.01 10^6/uL (3.85-5.65) 10/30/23 15:00 Hgb 11.80 g/dL (11.27-16.99) 10/30/23 15:00 Hct 36.0 % (36-47) 10/30/23 15:00 MCV 89.8 fl (85-98) 10/30/23 15:00 MCH 29.4 pg (27-33) 10/30/23 15:00 MCHC 32.8 g/dL (30-55) 10/30/23 15:00 RDW 14.8 % (12.1-15.1) 10/30/23 15:00 Plt Count 114 10^3/cmm (157-399) L 10/30/23 15:00 MPV 12.4 fL (7.4-10.4) H 10/30/23 15:00 Neut % (Auto) 78.8 % 10/30/23 15:00 Lymph % (Auto) 9.0 % 10/30/23 15:00 [place] % (Auto) 8.4 % 10/30/23 15:00 Eos % (Auto) 0.5 % 10/30/23 15:00 Baso % (Auto) 0.5 % 10/30/23 15:00 Neut # (Auto) 6.88 10^3/uL (1.8-7.7) 10/30/23 15:00 Lymph # (Auto) 0.8 10^3/uL (0.8-4.8) 10/30/23 15:00 [place] # (Auto) 0.7 10^3/uL (0.2-0.9) 10/30/23 15:00 Eos # (Auto) 0.0 10^3/uL (0.0-0.8) 10/30/23 15:00 Baso # (Auto) 0.0 10^3/uL (0.0-0.1) 10/30/23 15:00 Nucleated RBC % (auto) 0 % 10/30/23 15:00 Nucleated RBCs # 0.0 /100WBC 10/30/23 15:00 Sodium 132 mmol/L (136-145) L 10/30/23 15:00 Potassium 4.5 mmol/L (3.5-5.1) 10/30/23 15:00 Chloride 95 mmol/L (98-107) L 10/30/23 15:00 Carbon Dioxide 23 mmol/L (22-29) 10/30/23 15:00 Anion Gap 18.5 (5-19) 10/30/23 15:00 BUN 17 mg/dL (8-23) 10/30/23 15:00 Creatinine 1.0 mg/dL (0.5-0.9) H 10/30/23 15:00 GFR Calculation Not Reportable 10/30/23 15:00 Glucose 278 mg/dL (65-115) H 10/30/23 15:00 Calculated Osmolality 286 mOsm/kg (285-295) 10/30/23 15:00 Calcium 8.7 mg/dL (8.5-10.5) 10/30/23 15:00 Troponin T Baseline 15 ng/L (0-10) H 10/30/23 15:00 Troponin T 120 Minute 15.65 ng/L (0-10) H 10/30/23 16:49 Delta Troponin T 0.65 ABS# (0-10) 10/30/23 16:49 NT-Pro-B Natriuret Pep 2199 pg/mL (0-450) H 10/30/23 15:00 EKG Data EKG 1: I personally reviewed and interpreted this EKG as follows: Interpretation: Contemporaneous review of resting EKG reveals a ventricular rate of 78 bpm. She has a prolonged FL interval consistent with first-degree AV block. Normal QRS duration, normal corrected QT interval. Decreased R wave noted V2 V3 suggestive of possible anterior CT. No acute ST-T wave changes noted. Discharge Plan Discharge Patient Disposition: Home Clinical Impression: Chest pain Qualifiers: Chest pain type: unspecified Qualified Code(s): R07.9 - Chest pain, unspecified Condition: Stable Prescriptions: No Action ascorbate calcium (vitamin C) 500 mg tablet 500 mg PO DAILY cascara sagrada 450 mg capsule 450 mg PO DAILY (DME) lancets 30 gauge misc See Rx Instructions .ROUTE .MEDSUPPLY Qty: 25 Rx Instructions: As directed (DME) blood sugar diagnostic Strip See Rx Instructions .ROUTE .MEDSUPPLY Qty: 10 Rx Instructions: As directed magnesium oxide 400 mg (241.3 mg magnesium) tablet 400 mg PO DAILY Qty: 90 1RF omega-3 fatty acids [Fish Oil Concentrate] 1,000 mg capsule 2,000 mg PO BID Qty: 360 1RF (DME) syringe with needle 3 mL 22 gauge x 1 syringe See Rx Instructions .ROUTE .MEDSUPPLY Qty: 1 5RF Rx Instructions: use with Vitamin B12 every 6 weeks cephalexin 500 mg capsule 500 mg PO BID 7 Days Qty: 14 0RF Eliquis 5 mg tablet 2.5 mg PO BID@0900,2100 Qty: 90 3RF furosemide [Lasix] 20 mg tablet See Rx Instructions PO DAILY Qty: 100 3RF Rx Instructions: orally daily; Take 1 tab in am and 1/2 tab at 5 pm daily albuterol sulfate 90 mcg/actuation HFA aerosol inhaler 2 puff inhalation Q6H PRN (Reason: shortness of breath or wheezing) Qty: 6.7 0RF nitroglycerin 0.4 mg tablet, sublingual 0.4 mg SUBLINGUAL Q5M PRN (Reason: chest pain) Qty: 50 3RF Rx Instructions: do not exceed 3 doses per episode clopidogrel 75 mg tablet 75 mg PO DAILY Qty: 90 3RF Januvia 100 mg tablet See Rx Instructions .ROUTE .COMPLEX Qty: 90 1RF Dose Instruction: TAKE 1 TABLET BY MOUTH EVERY DAY Rx Instructions: TAKE 1 TABLET BY MOUTH EVERY DAY sotalol 80 mg tablet See Rx Instructions .ROUTE .COMPLEX Qty: 180 3RF Dose Instruction: TAKE ONE TABLET BY MOUTH TWICE DAILY Rx Instructions: TAKE ONE TABLET BY MOUTH TWICE DAILY isosorbide mononitrate 60 mg tablet extended release 24 hr 60 mg PO DAILY Qty: 90 3RF albuterol sulfate 0.63 mg/3 mL solution for nebulization See Rx Instructions .ROUTE .COMPLEX Qty: 90 0RF Dose Instruction: USE 1 VIAL IN NEBULIZER 4 TIMES DAILY NEEDED FOR SHORTNESS OF BREATH OR WHEEZING Rx Instructions: USE 1 VIAL IN NEBULIZER 4 TIMES DAILY NEEDED FOR SHORTNESS OF BREATH OR WHEEZING Farxiga 10 mg tablet See Rx Instructions .ROUTE .COMPLEX Qty: 90 1RF Dose Instruction: TAKE 1 TABLET BY MOUTH EVERY DAY Rx Instructions: TAKE 1 TABLET BY MOUTH EVERY DAY glimepiride 4 mg tablet See Rx Instructions .ROUTE .COMPLEX Qty: 90 0RF Dose Instruction: TAKE 1 TABLET BY MOUTH IN THE MORNING Rx Instructions: TAKE 1 TABLET BY MOUTH IN THE MORNING metformin 500 mg tablet See Rx Instructions .ROUTE .COMPLEX Qty: 180 0RF Dose Instruction: Take 1 tablet by mouth twice daily Rx Instructions: Take 1 tablet by mouth twice daily sertraline 50 mg tablet See Rx Instructions .ROUTE .COMPLEX Qty: 90 0RF Dose Instruction: Take 2 tablets by mouth once daily Rx Instructions: Take 2 tablets by mouth once daily diltiazem HCl 60 mg tablet See Rx Instructions .ROUTE .COMPLEX Qty: 84 0RF Dose Instruction: TAKE 1 TABLET BY MOUTH THREE TIMES DAILY Rx Instructions: TAKE 1 TABLET BY MOUTH THREE TIMES DAILY potassium chloride 10 mEq tablet,ER particles/crystals See Rx Instructions .ROUTE .COMPLEX Qty: 100 0RF Dose Instruction: TAKE 2 TABLETS DIRECTED DAILY ON SATURDAY, SATURDAY AND SATURDAY AND 3 TABLETS BY MOUTH DAILY ON SATURDAY, SATURDAY, SATURDAY AND SATURDAY Rx Instructions: TAKE 2 TABLETS DIRECTED DAILY ON SATURDAY, SATURDAY AND SATURDAY AND 3 TABLETS BY MOUTH DAILY ON SATURDAY, SATURDAY, SATURDAY AND SATURDAY ferrous gluconate 324 mg (38 mg iron) tablet 324 mg PO EVERY OTHER DAY Discharge Orders: Discharge ED (Routine); Ordered 10/30/23 Ordered By: Eric Thompson Referrals: Andressa Cee FNP [Primary Care Provider] - 1 week Patient Instructions: Chest Pain (ED) Activity Restrictions/Additional Instructions: Your workup in ER did not show any acute cardiac cause of your chest pain. Your EKGs and your troponins were stable. Please follow-up with your family practice physician and/or certified addiction counselor within the next 7 days for further evaluation and treatment. If your pain returns or worsens please feel free to return to the ER. Coding Level of Care Code ED Cage Loader for Chg Fwd Documented by User: Eric Thompson DO 10/31/23 00:29 HPI - Chest Pain General: Chief Complaint: Chest Pain Stated Complaint: chest pain Time Seen by Provider: 10/30/23 15:54 PFSH ED PFSH: Medical History SOB (shortness of breath) Chronic thoracic aortic dissection Chronic diastolic heart failure Constipation -on bowel regimen, as noted above Memory deficit Thoracic aortic aneurysm CVA (cerebral vascular accident) Paroxysmal atrial fibrillation Patient has a history of easy bruising/spontaneous bleeding. So for this reason, she is not on any oral anticoagulation Fatigue Atherosclerotic heart disease of [place] coronary artery without angina pectoris Recent nuclear stress test, 03/03/2020 demonstrated reversible ischemia, small area, LAD distribution Visual distortion COPD with emphysema -no acute exacerbation -CXR noted as well as RML nodule on CT Generalized anxiety disorder Vitamin B12 deficiency Benign hypertension -resume low dose BB and lasix; hold Amlodipine, Imdur Vitamin D deficiency Mixed hyperlipidemia Controlled type 2 diabetes mellitus with hyperglycemia, without long-term current use of insulin Surgical History Hx of cataract extraction History of coronary artery bypass graft History of appendectomy History of hysterectomy History of colonoscopy 2014 Family History Sister Cancer Lung disease Brother CAD (coronary artery disease) Denies family history of Diabetes Clotting disorder Dementia Chronic kidney disease (CKD) Suicide Anesthesia complication Bleeding disorder Stroke Social History Smoking and tobacco/nicotine status: never used tobacco/nicotine Second hand smoke exposure: No Alcohol intake: never Substance/Drug Use: never Caregiver/support person: No Lives independently: Yes Household members: spouse Marital status: Do you think of yourself as: Straight/Heterosexual Current gender identity: Female Course Vital Signs: Vital signs: Vital Signs Temperature 98.2 F 10/30/23 15:48 Pulse Rate 88 10/30/23 19:00 Respiratory Rate 18 10/30/23 15:48 Blood Pressure 138/80 10/30/23 19:00 Pulse Oximetry 96 10/30/23 19:00 Oxygen Delivery Me thod Room Air 10/30/23 15:48 MDM - Chest Pain Lab Data 10/30/23 15:00 10/30/23 15:00 Radiology Impressions Chest X-Ray 10/30/23 16:20 IMPRESSION: Vague infiltrate is seen in the left base. Lung mirza are otherwise clear. Laboratory Results WBC 8.71 10^3/uL (3.29-11.43) 10/30/23 15:00 RBC 4.01 10^6/uL (3.85-5.65) 10/30/23 15:00 Hgb 11.80 g/dL (11.27-16.99) 10/30/23 15:00 Hct 36.0 % (36-47) 10/30/23 15:00 MCV 89.8 fl (85-98) 10/30/23 15:00 MCH 29.4 pg (27-33) 10/30/23 15:00 MCHC 32.8 g/dL (30-55) 10/30/23 15:00 RDW 14.8 % (12.1-15.1) 10/30/23 15:00 Plt Count 114 10^3/cmm (157-399) L 10/30/23 15:00 MPV 12.4 fL (7.4-10.4) H 10/30/23 15:00 Neut % (Auto) 78.8 % 10/30/23 15:00 Lymph % (Auto) 9.0 % 10/30/23 15:00 [place] % (Auto) 8.4 % 10/30/23 15:00 Eos % (Auto) 0.5 % 10/30/23 15:00 Baso % (Auto) 0.5 % 10/30/23 15:00 Neut # (Auto) 6.88 10^3/uL (1.8-7.7) 10/30/23 15:00 Lymph # (Auto) 0.8 10^3/uL (0.8-4.8) 10/30/23 15:00 [place] # (Auto) 0.7 10^3/uL (0.2-0.9) 10/30/23 15:00 Eos # (Auto) 0.0 10^3/uL (0.0-0.8) 10/30/23 15:00 Baso # (Auto) 0.0 10^3/uL (0.0-0.1) 10/30/23 15:00 Nucleated RBC % (auto) 0 % 10/30/23 15:00 Nucleated RBCs # 0.0 /100WBC 10/30/23 15:00 Sodium 132 mmol/L (136-145) L 10/30/23 15:00 Potassium 4.5 mmol/L (3.5-5.1) 10/30/23 15:00 Chloride 95 mmol/L (98-107) L 10/30/23 15:00 Carbon Dioxide 23 mmol/L (22-29) 10/30/23 15:00 Anion Gap 18.5 (5-19) 10/30/23 15:00 BUN 17 mg/dL (8-23) 10/30/23 15:00 Creatinine 1.0 mg/dL (0.5-0.9) H 10/30/23 15:00 GFR Calculation Not Reportable 10/30/23 15:00 Glucose 278 mg/dL (65-115) H 10/30/23 15:00 Calculated Osmolality 286 mOsm/kg (285-295) 10/30/23 15:00 Calcium 8.7 mg/dL (8.5-10.5) 10/30/23 15:00 Troponin T Baseline 15 ng/L (0-10) H 10/30/23 15:00 Troponin T 120 Minute 15.65 ng/L (0-10) H 10/30/23 16:49 Delta Troponin T 0.65 ABS# (0-10) 10/30/23 16:49 NT-Pro-B Natriuret Pep 2199 pg/mL (0-450) H 10/30/23 15:00 All radiology interpretation(s) finalized by discharge Discharge Plan Discharge Patient Disposition: Home Clinical Impression: Chest pain Qualifiers: Chest pain type: unspecified Qualified Code(s): R07.9 - Chest pain, unspecified Condition: Stable Prescriptions: No Action ascorbate calcium (vitamin C) 500 mg tablet 500 mg PO DAILY cascara sagrada 450 mg capsule 450 mg PO DAILY (DME) lancets 30 gauge misc See Rx Instructions .ROUTE .MEDSUPPLY Qty: 25 Rx Instructions: As directed (DME) blood sugar diagnostic Strip See Rx Instructions .ROUTE .MEDSUPPLY Qty: 10 Rx Instructions: As directed magnesium oxide 400 mg (241.3 mg magnesium) tablet 400 mg PO DAILY Qty: 90 1RF omega-3 fatty acids [Fish Oil Concentrate] 1,000 mg capsule 2,000 mg PO BID Qty: 360 1RF (DME) syringe with needle 3 mL 22 gauge x 1 syringe See Rx Instructions .ROUTE .MEDSUPPLY Qty: 1 5RF Rx Instructions: use with Vitamin B12 every 6 weeks cephalexin 500 mg capsule 500 mg PO BID 7 Days Qty: 14 0RF Eliquis 5 mg tablet 2.5 mg PO BID@0900,2100 Qty: 90 3RF furosemide [Lasix] 20 mg tablet See Rx Instructions PO DAILY Qty: 100 3RF Rx Instructions: orally daily; Take 1 tab in am and 1/2 tab at 5 pm daily albuterol sulfate 90 mcg/actuation HFA aerosol inhaler 2 puff inhalation Q6H PRN (Reason: shortness of breath or wheezing) Qty: 6.7 0RF nitroglycerin 0.4 mg tablet, sublingual 0.4 mg SUBLINGUAL Q5M PRN (Reason: chest pain) Qty: 50 3RF Rx Instructions: do not exceed 3 doses per episode clopidogrel 75 mg tablet 75 mg PO DAILY Qty: 90 3RF Januvia 100 mg tablet See Rx Instructions .ROUTE .COMPLEX Qty: 90 1RF Dose Instruction: TAKE 1 TABLET BY MOUTH EVERY DAY Rx Instructions: TAKE 1 TABLET BY MOUTH EVERY DAY sotalol 80 mg tablet See Rx Instructions .ROUTE .COMPLEX Qty: 180 3RF Dose Instruction: TAKE ONE TABLET BY MOUTH TWICE DAILY Rx Instructions: TAKE ONE TABLET BY MOUTH TWICE DAILY isosorbide mononitrate 60 mg tablet extended release 24 hr 60 mg PO DAILY Qty: 90 3RF albuterol sulfate 0.63 mg/3 mL solution for nebulization See Rx Instructions .ROUTE .COMPLEX Qty: 90 0RF Dose Instruction: USE 1 VIAL IN NEBULIZER 4 TIMES DAILY NEEDED FOR SHORTNESS OF BREATH OR WHEEZING Rx Instructions: USE 1 VIAL IN NEBULIZER 4 TIMES DAILY NEEDED FOR SHORTNESS OF BREATH OR WHEEZING Farxiga 10 mg tablet See Rx Instructions .ROUTE .COMPLEX Qty: 90 1RF Dose Instruction: TAKE 1 TABLET BY MOUTH EVERY DAY Rx Instructions: TAKE 1 TABLET BY MOUTH EVERY DAY glimepiride 4 mg tablet See Rx Instructions .ROUTE .COMPLEX Qty: 90 0RF Dose Instruction: TAKE 1 TABLET BY MOUTH IN THE MORNING Rx Instructions: TAKE 1 TABLET BY MOUTH IN THE MORNING metformin 500 mg tablet See Rx Instructions .ROUTE .COMPLEX Qty: 180 0RF Dose Instruction: Take 1 tablet by mouth twice daily Rx Instructions: Take 1 tablet by mouth twice daily sertraline 50 mg tablet See Rx Instructions .ROUTE .COMPLEX Qty: 90 0RF Dose Instruction: Take 2 tablets by mouth once daily Rx Instructions: Take 2 tablets by mouth once daily diltiazem HCl 60 mg tablet See Rx Instructions .ROUTE .COMPLEX Qty: 84 0RF Dose Instruction: TAKE 1 TABLET BY MOUTH THREE TIMES DAILY Rx Instructions: TAKE 1 TABLET BY MOUTH THREE TIMES DAILY potassium chloride 10 mEq tablet,ER particles/crystals See Rx Instructions .ROUTE .COMPLEX Qty: 100 0RF Dose Instruction: TAKE 2 TABLETS DIRECTED DAILY ON SATURDAY, SATURDAY AND SATURDAY AND 3 TABLETS BY MOUTH DAILY ON SATURDAY, SATURDAY, SATURDAY AND SATURDAY Rx Instructions: TAKE 2 TABLETS DIRECTED DAILY ON SATURDAY, SATURDAY AND SATURDAY AND 3 TABLETS BY MOUTH DAILY ON SATURDAY, SATURDAY, SATURDAY AND SATURDAY ferrous gluconate 324 mg (38 mg iron) tablet 324 mg PO EVERY OTHER DAY Discharge Orders: Discharge ED (Routine); Ordered 10/30/23 Ordered By: Eric Thompson Referrals: Andressa Cee FNP [Primary Care Provider] - 1 week Patient Instructions: Chest Pain (ED) Activity Restrictions/Additional Instructions: Your workup in ER did not show any acute cardiac cause of your chest pain. Your EKGs and your troponins were stable. Please follow-up with your family practice physician and/or certified addiction counselor within the next 7 days for further evaluation and treatment. If your pain returns or worsens please feel free to return to the ER. Coding Level of Care Code ED Cage Loader for Awais Hernandez
[2023-10-30 16:39] LABS: Basophils % 0.5 %; Eosinophils % 0.5 %; Lymphocytes # 0.8 10^3/uL (0.8-4.8); Mean Corpuscular HGB Conc 32.8 g/dL (30-55); Mean Corpuscular Hemoglobin 29.4 pg (27-33); Mean Corpuscular Volume 89.8 fl (85-98); Mean Platelet Volume 12.4 fL (7.4-10.4); Monocytes # 0.7 10^3/uL (0.2-0.9); Monocytes % 8.4 %; Neutrophils # 6.88 10^3/uL (1.8-7.7); Neutrophils % 78.8 %; Nucleated Red Blood Cells % 0 %; Platelet Count 114 10^3/cmm (157-399); Red Blood Count 4.01 10^6/uL (3.85-5.65); Red Cell Distribution Width 14.8 % (12.1-15.1); White Blood Count 8.71 10^3/uL (3.29-11.43)
[2023-10-30 17:09] LABS: Troponin(5th) Baseline 15 ng/L (0-10)
[2023-10-30 17:16] LABS: Troponin 5 2HR 15.65 ng/L (0-10); Troponin 5 2HR Delta 0.65 ABS# (0-10)
[2023-10-30 17:19] LABS: Anion Gap 18.5 (5-19); Blood Urea Nitrogen 17 mg/dL (8-23); Calcium 8.7 mg/dL (8.5-10.5); Carbon Dioxide 23 mmol/L (22-29); Chloride 95 mmol/L (98-107); Glucose 278 mg/dL (65-115); NT Pro B Type Natriuretic Pept 2199 pg/mL (0-450); Osmolality Calculated 286 mOsm/kg (285-295); Potassium 4.5 mmol/L (3.5-5.1); Sodium 132 mmol/L (136-145)
--- NOTE | 2023-10-30 18:20 | ECG_ITS ---
[facility] Test Date: 2023-10-30 Pat Name: Florence Mehta Department: Room: Gender: Female Greige Mender: : 1935 Requested By: Chuy Euceda Order Number: [id number] Cordon MD: Sy Chung M.D. Measurements Intervals [place] Rate: 104 P: 0 MA: 0 QRS: -7 QRSD: 94 T: -17 QT: 372 QTc: 490 Interpretive Statements ATRIAL FIBRILLATION WITH RAPID VENTRICULAR RESPONSE MODERATE ST DEPRESSION [0.05+ mV ST DEPRESSION] Compared to ECG 10/30/2023 15:49:58 ST (T wave) deviation now present Sinus rhythm no longer present First degree AV block no longer present Myocardial infarct finding no longer present T-wave abnormality no longer present Possible ischemia no longer present Electronically Signed On 10-31-2023 7:23:57 [employer] by Sy Chung M.D. [email or web address]
[2023-10-30 18:23] VITALS: BP 136/85; PULSE 87; O2SAT 96
[2023-10-30 19:00] VITALS: BP 138/80; PULSE 88; O2SAT 96
== END 2023-10-30 19:01 | disposition home or self-care (01) ==
PROVIDERS: Emergency Provider Emergency Medicine; PCP Nurse Practitioner Family
DX: R07.9 Chest pain, unspecified (principal); Z79.01 Long term (current) use of anticoagulants; Z79.84 Long term (current) use of oral hypoglycemic drugs; Z79.82 Long term (current) use of aspirin; Z95.1 Presence of aortocoronary bypass graft; I11.0 Hypertensive heart disease with heart failure; I50.9 Heart failure, unspecified; Z86.73 Personal history of transient ischemic attack (TIA), and cerebral infarction without residual deficits; I25.10 Atherosclerotic heart disease of native coronary artery without angina pectoris; J44.9 Chronic obstructive pulmonary disease, unspecified; E78.2 Mixed hyperlipidemia; E11.9 Type 2 diabetes mellitus without complications
CPT/HCPCS: 36415; 71045; 80048; 83880; 84484; 85025; 93005; 99285

== ENCOUNTER → 2024-01-02 10:51 | Outpatient (BNVA) | payer MEDICARE, OTHER, SELFPAY | PROVIDERS: PCP Nurse Practitioner Family; Visit Provider Nurse Practitioner Family | DX: I10 Essential (primary) hypertension (principal); E11.9 Type 2 diabetes mellitus without complications; R53.83 Other fatigue | CPT/HCPCS: 80053; 83036; 85025 ==

== ENCOUNTER → 2024-01-16 13:51 | Outpatient (BNVA) | payer MEDICARE, OTHER, SELFPAY | PROVIDERS: PCP Nurse Practitioner Family; Visit Provider Internal Medicine Cardiovascular Disease | DX: I25.118 Atherosclerotic heart disease of native coronary artery with other forms of angina pectoris (principal); E78.2 Mixed hyperlipidemia; I48.0 Paroxysmal atrial fibrillation; I11.0 Hypertensive heart disease with heart failure; I50.32 Chronic diastolic (congestive) heart failure | CPT/HCPCS: 99214 ==

== ENCOUNTER → 2024-07-20 13:34 | Outpatient (BNVA) | payer MEDICARE, OTHER, SELFPAY | PROVIDERS: PCP Nurse Practitioner Family; Visit Provider Internal Medicine Cardiovascular Disease | DX: I25.10 Atherosclerotic heart disease of native coronary artery without angina pectoris (principal); I48.0 Paroxysmal atrial fibrillation; I50.32 Chronic diastolic (congestive) heart failure; E78.2 Mixed hyperlipidemia; I71.012 Dissection of descending thoracic aorta | CPT/HCPCS: 99214 ==

== ENCOUNTER → 2024-08-17 10:20 | Outpatient (BNVA) | payer MEDICARE, OTHER, SELFPAY | PROVIDERS: PCP Nurse Practitioner Family; Visit Provider Nurse Practitioner Family | DX: I10 Essential (primary) hypertension (principal); R53.83 Other fatigue; E11.9 Type 2 diabetes mellitus without complications | CPT/HCPCS: 80053; 80061; 83036; 84443; 85007; 85025 ==